=== PATIENT | male | born 1945 | race African-American/Black ===

== ENCOUNTER 2017-05-12 23:27 | Inpatient (IN) | payer MEDICARE, OTHER ==
--- NOTE | 2017-05-12 23:47 | RAD ---
CHEST ONE VIEW: History: Chest pain. Comparison: 04-13-10, 08-19-12 FINDINGS: Cardiac silhouette and pulmonary vasculature are unremarkable. Mediastinum is midline. Lungs remain h yperinflated with scattered areas of interstitial scarring. Calcified granulomata are consistent with healed granulomatous disease. There is no lobar consolidation or evidence of pneumothorax. IMPRESSION: COPD. POS: [facility]
[2017-05-13] MEDS ORDERED: Nitroglycerin 2% Ointment 1 INCH/1 GM Packet ONE (00:41)
[2017-05-13 00:44] LABS: CKMB 2.5 ng/mL (0-6.6)
[2017-05-13 00:47] LABS: #Eosinphils 0.6 thou/uL (0.0-0.7); #Lymphocytes 1.3 thou/uL (1.20-3.40); #Monocytes 0.5 thou/uL (0.11-0.59); #Neutrophils 4.5 thou/uL (1.40-6.50); %Basophils 0.2 % (0.0-1.0); %Eosinophils 8.4 % (0.0-10.0); %Lymphocytes 19.2 % (21.0-51.0); %Monocytes 7.8 % (0.0-10.0); %Neutrophils 64.5 % (42.0-75.0); Hemoglobin 13.7 g/dL (14.0-18.0); Mean Corpuscular HGB CONC 33.7 g/dL (32.0-36.0); Mean Corpuscular Hemoglobin 32.9 pg (27.0-31.0); Mean Corpuscular Volume 97.6 fl (80.0-94.0); Mean Platelet Volume 8.1 fL (7.4-10.4); Platelet Count 150 thou/uL (130-400); RBC Distribution Width 11.6 % (11.5-14.5); Red Blood Cell (RBC) Count 4.17 mill/uL (4.70-6.10)
[2017-05-13 00:54] LABS: ALT (SGPT) 15 U/L (8-55); AST (SGOT) 25 U/L (5-34); Albumin 4.2 g/dL (3.4-4.8); Alkaline Phosphatase 49 U/L (40-150); Anion Gap 16 mmol/L (10-20); BUN (Urea Nitrogen) 25 mg/dL (8.4-25.7); Bilirubin, Total 0.2 mg/dL (0.2-1.2); Calc. Creatinine Clearance 0 mL/min (70-130); Calcium 9.2 mg/dL (7.8-10.44); Carbon Dioxide 25 mmol/L (23-31); Chloride 102 mmol/L (98-107); Estimated GFR-MDRD 35; Glucose 149 mg/dL (83-110); Protein, Total 8.2 g/dL (5.8-8.1); Sodium 139 mmol/L (136-145)
[2017-05-13 03:35] LABS: Troponin I 0.512 ng/mL (< 0.028)
[2017-05-13] MEDS ORDERED: Ondansetron HCl/PF 4 MG/2 ML Vial IVP PRN (04:33)
[2017-05-13] MEDS ORDERED: Ondansetron ODT 4 MG TAB SL PRN (04:33)
[2017-05-13] MEDS ORDERED: Acetaminophen 325 MG TAB PO PRN (04:33)
[2017-05-13] MEDS: Nitroglycerin 2% Ointment 1 INCH/1 GM Packet TOP SCH ×3 (05:04→20:38)
[2017-05-13 06:21] LABS: Critical Call Chem Troponin I 2NO.PNL@; Troponin I 0.701 ng/mL (< 0.028)
[2017-05-13] MEDS ORDERED: Morphine 5 MG/ML SYRINGE SLOW IVP PRN (06:55)
--- NOTE | 2017-05-13 08:55 | HP ---
HISTORY OF PRESENT ILLNESS: This is a 71-year-old black male with coronary artery disease, hypertens ion, hyperlipidemia, HIV, who presents with chest pain. The patient has a history of cardiac stents x3 [place] [address] Page. He was doing relatively well until approximately 2 weeks ago he began developing chest pain off and on. He did see Dr. Page at that time in the office. Last night at proximately 10:00 p.m. he developed severe sharp chest pain, nonradiating with diaphoresis. He then presented to the emergency room. He was given nitroglycerin with resolution of his chest pain. Talbot cydney, this morning he awoke which recurrent chest pain. It is localized, substernal, sharp and nonrad iating, without diaphoresis. Overnight his troponin levels were trending upward. His EKG reveals a right bundle branch block with no acute findings. PAST MEDICAL HISTORY: Asthma, hypertension, hyperlipidemia, HIV, followed by Dr. Hernandez, renal insuff iciency, coronary artery disease, diabetes. PAST SURGICAL HISTORY: Left carotid endarterectomy [place] [address] Roberts, stents x3 by Dr. Page 2006, right hand carpal tunnel syndrome surgery. FAMILY HISTORY: Unremarkable. SOCIAL HISTORY: He does not smoke, does not drink. He does drink coffee 1-2 cups per day. 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 He presently works around the [employer]. He is . He has 3 kids. MEDICATIONS: Plavix 75 mg daily, Tivicay 50 mg daily, vitamin D3 400 2 capsules mg daily, Bystolic 1 0 mg daily, losartan/HCTZ 100/12.5 p.o. q.a.m., albuterol p.r.n., Norvasc 5 mg 1 p.o. daily, Epzicom 600, 300 daily, fish oil 1000 two b.i.d., Flomax 0.4 mg daily, finasteride 5 p.o. daily, pravastatin 20 daily, Advair b.i.d. ALLERGIES: None. REVIEW OF SYSTEMS: As above. PHYSICAL EXAMINATION: VITAL SIGNS: Temperature 97.9, pulse 74, respirations 16, pulse ox 98, blood pressure 138/80. GENERAL: Having some mild substernal chest pain at this time. Nitroglycerin has just been placed. HEENT: Clear. HEART: Regular rate and rhythm. LUNGS: Clear. ABDOMEN: Soft. EXTREMITIES: With no edema. LABORATORY: White count 7.0, H&H 13 and 40. Electrolytes normal. Creatinine 2.23, BUN 25, blood quigley gar 149, troponin 0.03, 0.5, 0.701. EKG; right bundle branch block. ASSESSMENT: 1. Non-ST elevation myocardial infarction, rule out acute myocardial infarction. 2. Chest pain as above. 3. Human immunodeficiency virus. 4. Hypertension. 5. Hyperlipidemia. 6. Diabetes. 7. Chronic kidney disease stage 3. PLAN: 1. N.p.o. 2. Nitroglycerin patch. 3. Consult Dr. Page. May need a cardiac catheterization. 4. Resume home medications.
[2017-05-13] MEDS ORDERED: LAMIVUDINE PO SCH (09:00)
[2017-05-13] MEDS ORDERED: ABACAVIR SULFATE PO SCH (09:00)
[2017-05-13] MEDS ORDERED: [UNRECOGNIZED DRUG - OTHER] PO SCH (09:00)
[2017-05-13] MEDS ORDERED: Non-Formulary Item 1 EACH (Nebivolol Hcl [Bystolic] 10 MG) PO SCH (09:00)
[2017-05-13] MEDS ORDERED: Enoxaparin Sodium 80 MG/0.8 ML SYRINGE SC SCH ×2 (09:00)
[2017-05-13] MEDS ORDERED: Non-Formulary Item 1 EACH (Dolutegravir Sodium [Tivicay] 50 MG) PO SCH (09:00)
[2017-05-13] MEDS ORDERED: Aspirin 325 MG TAB PO SCH (09:00)
[2017-05-13] MEDS ORDERED: Non-Formulary Item 1 EACH (Losartan/Hydrochlorothiazide [Losartan-Hctz 100-12.5 Mg Tab] 1 PO SCH (09:00)
[2017-05-13] MEDS ORDERED: OMEGA ACID ETHYL ESTERS PO SCH (09:00)
[2017-05-13] MEDS: Fish Oil 1,000 MG CAP PO SCH ×2 (10:51→20:39)
[2017-05-13] MEDS: Nebivolol HCl 5 MG TAB PO SCH (10:51)
[2017-05-13] MEDS: Hydrochlorothiazide 25 MG TAB PO SCH (10:52)
[2017-05-13] MEDS: Losartan 25 MG TAB PO SCH (10:52)
[2017-05-13] MEDS: Aspirin 325 MG TAB PO SCH (10:53)
[2017-05-13] MEDS: Finasteride 5 MG TAB PO SCH (10:54)
[2017-05-13] MEDS: Tamsulosin HCl 0.4 MG CAP PO SCH ×2 (10:55→20:38)
[2017-05-13] MEDS: Sodium Chloride 0.9% 1,000 ML IV SCH (13:46)
[2017-05-13 14:48] LABS: Critical Call Chem Troponin I RESULT DECREASING; Troponin I 0.616 ng/mL (< 0.028)
--- NOTE | 2017-05-13 15:43 | CON ---
DATE OF CONSULTATION: 05/13/2017 REASON FOR CARDIOLOGY CONSULTATION: Chest pain and elevated troponin. PRIMARY CARE PHYSICIAN: Dr. Favio العلي PRIMARY LATHE MACHINE OPERATOR: Dr. Eri Page REFERRAL PHYSICIAN: Dr. Favio العلي HISTORY OF PRESENT ILLNESS: Mr. Ramsay is a 71-year-old -[place] male with a significant history of coronary artery disease, status post stent placement in 10/2001, left CEA in 2011, multiple cerebrovascular accident in 2000 and 2007, hypertension, hyperlipidemia, diabetes, and HIV positive. The patient complained of chest pain for about 3 weeks. The patient presented to Dr. Arredondo's office 04/25/2017 complaining of chest pain, pressure-like discomfort to the mid sternal area. The patient was planned to have a cardiac catheterization; however, somehow, somebody cancel his schedule and he has not had another cardiac catheterization scheduled after that. Per the patient, the patient started having more worsening of a pressure-like pain to the mediastinal area and he could not breathe last night. Due to those reasons, the patient decided to present to the emergency department for further evaluation and treatment. During the episodes at home, the patient denied any other symptoms such as dizziness or lightheadedness, numbness in the left upper extremity, diaphoresis or any other cardiac complaints. During the initial Cardiology consult assessment the patient is still complaining of light achiness to the mid sternal area,but no shortness breath or any other cardiac complaints; however, when he walked to the bathroom, he has dyspnea on exertion with mild movement. Patient has a history of chronic kidney disease and he has been seen by Dr. Matson twice in the past. He is supposed to follow up with Dr. Matson within a few months. The patient had a cardiac catheterization with stent placement to the left circumflex artery in 2001, with unsuccessful angioplasty of stent to ostium of obtuse marginal branch and 100% occlusion to RCA with a minimal left to right filling. The patient's last echocardiogram was done in 2001 which shows EF of 60-65% with normal valve structure, mild tricuspid regurgitation, mild pulmonary valve regurgitation, and trace mitral valve regurgitation. He underwent left ICA by Dr. Roberts in 2011. The patient has a stress echo in 2003 which shows no evidence of reversible ischemia with some degree of scar in the inferior and posterior artis of the left ventricle. He was seen by Dr. Matson for renal management and Dr. Hernandez for HIV management. PAST MEDICAL HISTORY: 1. Coronary artery disease. 2. Asthma. 3. Hypertension. 4. Hyperlipidemia. 5. Diabetes type 2. 6. Chronic hip pain. 7. HIV positive 8. History of left CVA in 1999 without any residual and right CVA in 2007 with left-sided weakness. 9. Chronic kidney disease. PAST SURGICAL HISTORY: 1. Stent placement in 2001. 2. Left CA in 2011. 3. Right carpal tunnel surgery. FAMILY HISTORY: The patient's mother due to complications of diabetes , hypertension and CVA. The patient's father has a history of coronary artery disease and program from heavy ETOH abuse. The patient's brother due to lung cancer from chronic smoking. There is significant family history of diabetes and hypertension in his family in his maternal and paternal side. SOCIAL HISTORY: The patient lives by himself, his aunt and his cousin live next door. He has 3 children who are living and well. He denies smoking, ETOH or illicit drug abuse. ALLERGIES: He has no known drug allergies. HOME MEDICATIONS: Plavix 75 mg once a day, Bystolic 10 mg once a day, losartan/ hydrochlorothiazide 100/12.5 mg once a day, pravastatin 40 mg once a day, Flomax 0.4 mg once a day 30 minutes prior to the same meal each day, amlodipine 5 mg once a day, omega 3 fish oil once a day, Tivicay 50 mg once a day, Advair 250/50 mcg 1 puff twice a day, Atripla 600/200/ 300 mg 1 tablet at the bedside with empty stomach, albuterol sulfate 2 puffs q.4-6 hours as needed, Lipitor 40 mg once a day, isosorbide mononitrate 30 mg once a day. REVIEW OF SYSTEMS: The following complete review of systems was negative, unless otherwise mentioned in the HPI or below. CONSTITUTIONAL: Weight loss or gain, sense of well-being, ability to conduct usual activities, exercise tolerance. SKIN: Rash, itching, change in hair growth or loss, nail changes, breast lumps , tenderness, swelling, nipple discharge. EYES: No vision change, double vision, tearing, doubles spots and pain. HEENT: Mild headache, vertigo, lightheadedness, dizziness, nose bleeding, cold , obstruction, discharge, dental difficulty, gingival bleeding, denture, neck stiffness, pain, tenderness, mass in the thyroid or other areas. CARDIOVASCULAR: Palpitations, syncope, nocturnal dyspnea, edema, cyanosis, heart murmur, claudication. RESPIRATORY: Wheezing, stridor, cough. GASTROINTESTINAL: Poor appetite, dysphagia, indigestion, abdominal pain, heartburn, nausea, vomiting, jaundice, constipation, diarrhea, blood in the stool. GENITOURINARY: Urgency, frequency, dysuria, nocturia, hematuria, polyuria, oliguria, unusual color of urine. MUSCULOSKELETAL: Pain, swelling, redness or heat of muscle or joint, limitation of motion, motion, muscular weakness, atrophy, cramps. NEUROLOGIC: Seizure, conversion, paralysis, tremor, incoordination, difficulty with memory or speech. PSYCHIATRIC: Emotional problem, anxiety, depression, previous psychiatric care , unusual perception, hallucination. PHYSICAL EXAMINATION: VITAL SIGNS: Blood pressure 138/80, heart rate 74, respiratory rate 16, O2 sat 98% on 2 liters and temperature 97.9. GENERAL: Well-developed, well-nourished without acute distress. HEAD: Normocephalic, atraumatic. EYES: Extraocular muscle movement intact. ENT: Oral and nasal mucosa is moist without lesion. NECK: No JVD. Neck is supple, normal range of motion. LUNGS: Clear to auscultation bilaterally, no wheezing, rales or rhonchi noted. CARDIOVASCULAR: Regular rate and rhythm, normal S1, S2. There are no S3 or S4. No significant murmur, hives, thrill or bruits noted. There are 2+ pulses in the bilateral dorsal pedis, posterior tibial, and popliteal. Carotid pulses are present on both sides with bruit to the left side, there is no edema in the bilateral lower extremities. ABDOMEN: Soft, nontender or mass to touch, palpate, nondistended. Bowel sounds are present. MUSCULOSKELETAL: Able to move all extremities. Weakness to the left extremities, no calf tenderness. SKIN: Warm and dry. No skin rash, lesion, no bruise noted. NEUROLOGIC: Alert, oriented x4, awake. Normal affect. Nonfocal. PSYCHIATRIC: Mood and affect normal. LABORATORY DATA: WBC 7.0, hemoglobin 13.7, hematocrit 40.7, platelet 150,000. Sodium 139, potassium 4.0. BUN 25, creatinine 2.23, glucose 149, AST 25, ALT 15 , CK-MB 2.5, troponin 0.03, 0.512, 0.701. Chest x-ray showed the patient had COPD, but other than that no acute process. ASSESSMENT AND PLAN: 1. Chest pain with elevated troponin. The patient is supposed to have a cardiac catheterization; however, due to the patient's creatinine level 2.23, we would like to hold the procedure at this moment. The patient is going to start receiving normal saline 30 mL per an hour, but depends on the echo result , we may increase the IV fluid to make the kidney function improve. The patient is on aspirin, beta byron, statin and Lovenox. We are holding YOVANI inhibitor due to the chronic kidney disease and also Lovenox was changed to heparin due to the kidney function. We will check the patient's troponin level one more time. We would like to continue to monitor the patient on the telemetry. 2. Chronic kidney disease. We are holding the YOVANI inhibitor at this moment. We would like to continue to monitor. 3. Hypertension, stable with current medication. 4. Diabetes. 5. Hyperlipidemia. Patient is on the statin. 6. Human immunodeficiency virus positive. The patient is on medication. The patient's condition is stable at this time. 7. Bilateral carotid artery disease. When the patient has cardiac catheterization patient can have his carotid arteries checked during the cardiac catheterization procedure 8. Status post cerebrovascular accident. The patient's condition is stable at this time. We like to continue to monitor. Thank you very much for allowing the Cardiology Service to participate in the care of this patient. We will follow along with the patient care team and make further recommendations as appropriate. ABHINAV
[2017-05-13] MEDS ORDERED: Carvedilol 6.25 MG TAB PO SCH (17:00)
[2017-05-13] MEDS: Morphine 5 MG/ML SYRINGE SLOW IVP PRN (18:17)
[2017-05-13] MEDS: Simvastatin 5 MG TAB PO SCH (20:39)
[2017-05-13] MEDS: Heparin 5,000 UNITS/ML VIAL SC SCH (20:40)
[2017-05-13] MEDS ORDERED: Pravastatin Sodium 20 MG TAB PO SCH (21:00)
--- NOTE | 2017-05-14 04:42 | CON ---
CONSULTATION ADDENDUM Please refer to the note that is already dictated by my nurse practitioner, Lyn. DATE OF CONSULTATION: 05/13/2017 INDICATION FOR CONSULTATION: Chest pain with abnormal cardiac enzymes in a patient with known jolley ry artery disease. He has undergone angioplasty and stent placed in the past. HISTORY OF PRESENT ILLNESS: This very pleasant, elderly gentleman who has a history of known coronar y artery disease who underwent angioplasty and stent placement in 2001. He has also had multiple per ipheral vascular diseases and procedures. He presented recently complaining of chest discomfort in t he office and was advised to undergo a cardiac catheterization; however, I believe he had canceled it , another date he had been scheduled after that and unfortunately the patient has not yet presented f or the cardiac catheterization until he presented to the emergency room complaining of chest discomfo rt. He has been admitted for further evaluation. During this episode apparently, the patient also h ad become somewhat dizzy and lightheaded, complained of some chest discomfort and some tingling type sensations. His cardiac enzymes are slightly abnormal, which could be considered possible non-ST seg ment elevation myocardial infarction or just demand ischemia. He unfortunately has chronic kidney di sease also. At this time, he has had no chest pain, but will need to be evaluated prior to undergoin g further procedures. As noted by the nurse practitioner he will need to undergo IV fluid replacemen ts as well as a Nephrology consultation prior to proceeding. I did explain to this patient that shou ld we proceed with cardiac catheterization at this time, he may end up on dialysis and may have kidne y failure. It is highly possible that the patient had been significant progression of his coronary a rtery disease. His last cardiac catheterization did have significant disease in the left circumflex for which he underwent angioplasty and stent placement, we were unable to completely intervene on par t of his left circumflex system, I believe the obtuse marginal branch were unable to open this vessel and he also had 100% occlusion of the right coronary artery with some left to right collaterals. Hi s left anterior descending artery did not have any significant flow-limiting disease. Ejection fract ion in the past back in 2001 had been within normal limits except he did have some mild regurgitation s. He has had other vascular procedures such as an internal carotid artery endarterectomy by Dr. Escobar by about 6 or 7 years ago. At this time, he remains relatively stable. PAST MEDICAL HISTORY/SOCIAL HISTORY/REVIEW OF SYSTEMS: Please refer the notes dictated by the nurse practitioner. ALLERGIES: None. MEDICATIONS: Please refer to the list of the previous dictation by the nurse practitioner. PHYSICAL EXAMINATION: GENERAL: Reveals an elderly gentleman who is in no acute distress. VITAL SIGNS: Stable. Blood pressure is 130/80, heart rates in the 70s, respiratory rate 16, O2 satu rations 98%. HEENT: Shows the head to be normocephalic, atraumatic. There is a well-healed surgical incision of the carotid area after carotid endarterectomy, bilateral bruits were noted. CHEST: Clear to auscultation. I did not hear any rales, rhonchi or wheezing. CARDIOVASCULAR: Exam reveals a regular rate and rhythm at this time. There were no significant murm urs, heaves, thrills, bruits or rubs. ABDOMEN: Soft and nontender. Positive bowel sounds are present. EXTREMITIES: Show no clubbing or cyanosis. I cannot palpate his pedal pulses very well and femoral pulses were present, but are somewhat diminished. His radial pulses appear to be normal. NEUROLOGIC: The patient appears to be intact without any gross focal motor deficits. SKIN: Warm and dry. IMPRESSION: 1. Known coronary artery disease with unstable angina type symptoms with ST segment changes and also evidence of abnormal cardiac enzymes. The patient would best be served by undergoing a cardiac cath eterization; however, at this time, he is relatively stable and I would advise him to undergo evaluat ion by Nephrology prior to proceeding with cardiac catheterization if at all possible. We will need to hydrate the patient prior to cardiac catheterization to decrease the risk of further renal insult. 2. History of diabetes. This will be dealt with by the primary service. 3. Hypertension. He appears to be relatively stable at this time. 4. History of bilateral carotid artery disease with previous carotid endarterectomy. The patient hensley s also believe had a CVA in the past. 5. History of human immunodeficiency virus positive patient. He will continue his medications at th is time for his HIV. I would be more than happy to continue to follow the patient with you. Hopefully, plan for a cardiac catheterization on this admission. I did explain to him the procedure that would include some possi ble bleeding, infection, myocardial infarction, renal insufficiency or renal failure in his case as w ell as bleeding, infection, CVA or possible myocardial infarction or even . He does understand and we will try to proceed with cardiac catheterization once the patient has had hydration. We will also need to obtain an echocardiogram in order to further hydrate the patient. If he has a decrease in ejection fraction this could cause him to have congestive heart failure especially with his decrea sing renal function.
[2017-05-14 05:28] LABS: #Eosinphils 0.5 thou/uL (0.0-0.7); #Lymphocytes 1.2 thou/uL (1.20-3.40); #Monocytes 0.7 thou/uL (0.11-0.59); #Neutrophils 5.1 thou/uL (1.40-6.50); %Basophils 0.5 % (0.0-1.0); %Eosinophils 6.1 % (0.0-10.0); %Lymphocytes 16.4 % (21.0-51.0); %Monocytes 9.5 % (0.0-10.0); %Neutrophils 67.5 % (42.0-75.0); Hemoglobin 12.3 g/dL (14.0-18.0); Mean Corpuscular HGB CONC 33.7 g/dL (32.0-36.0); Mean Corpuscular Hemoglobin 33.4 pg (27.0-31.0); Mean Corpuscular Volume 99.1 fl (80.0-94.0); Mean Platelet Volume 7.6 fL (7.4-10.4); Platelet Count 137 thou/uL (130-400); RBC Distribution Width 11.6 % (11.5-14.5); Red Blood Cell (RBC) Count 3.68 mill/uL (4.70-6.10); White Blood Cell (WBC) Count 7.6 thou/uL (4.8-10.8)
[2017-05-14 05:36] LABS: Anion Gap 10 mmol/L (10-20); BUN (Urea Nitrogen) 25 mg/dL (8.4-25.7); Calc. Creatinine Clearance 44 mL/min (70-130); Calcium 8.8 mg/dL (7.8-10.44); Carbon Dioxide 28 mmol/L (23-31); Chloride 106 mmol/L (98-107); Estimated GFR-MDRD 49; Glucose 109 mg/dL (83-110); Potassium 4.6 mmol/L (3.5-5.1); Sodium 139 mmol/L (136-145)
--- NOTE | 2017-05-14 07:26 | EKG ---
Test Reason : Blood Pressure : / mmHG Vent. Rate : 071 BPM Atrial Rate : 071 BPM P-R Int : 244 ms QRS Dur : 140 ms QT Int : 396 ms P-R-T Axes : 081 054 007 degrees QTc Int : 430 ms Poor data quality, interpretation may be adversely affected Sinus rhythm with 1st degree A-V block Right bundle branch block Abnormal ECG When compared with ECG of 12-MAY-2017 23:33, (Unconfirmed) AK interval has increased T wave inversion no longer evident in Anterior leads QT has shortened Confirmed by DR. Melany YEH ([id number]) on 05/14/2017 7:26:15 AM Referred By: Nolberto RUSSELL Confirmed By:DR. Melany YEH
--- NOTE | 2017-05-14 07:42 | PRG ---
DATE OF SERVICE: 05/14/2017 SUBJECTIVE: The patient is doing well. No complaints of chest pain, shortness of breath, nausea, or vomiting. OBJECTIVE: VITAL SIGNS: Temperature 97.8, pulse 74, respirations 20, pulse ox 99 on 2 liters O2, blood pressure 117/63. HEART: Regular rate and rhythm. LUNGS: Clear with occasional expiratory wheeze. ABDOMEN: Soft. EXTREMITIES: With no edema. LABORATORY DATA: White count 7.6, H and H 12 and 36, creatinine decreased from 2.23-1.68, blood suga r 109. ASSESSMENT: 1. [id number] elevation myocardial infarction, rule out acute myocardial infarction. 2. Chest pain. 3. Human immunodeficiency virus. 4. Hypertension. 5. Hyperlipidemia. 6. Diabetes, controlled. 7. Chronic kidney disease, stage 3. PLAN: 1. Patient is chest pain free at this time. He is being hydrated slowly. Renal has been consulted. 2. Plan cardiac catheterization once kidney status is improved. 3. Appreciate Dr. Page. 4. Continue home medicines. 5. Out of bed t.i.d.
--- NOTE | 2017-05-14 08:59 | CON ---
DATE OF CONSULTATION: 05/14/2017 REASON FOR CONSULTATION: Elevated creatinine. HISTORY OF PRESENT ILLNESS: This is a 71-year-old gentleman who presented with chest pain and elevat ed troponin. His creatinine was more than 2, which after hydration improved to 1.6 today. The patie nt denies nausea, vomiting, chest pain or syncope. PAST MEDICAL HISTORY: Coronary disease, asthma, hypertension, CKD, HIV, history of CVA, history of s tent placement, history of left CVA in 2011, history of right carpal tunnel surgery. FAMILY HISTORY: Negative for ESRD. SOCIAL HISTORY: No alcohol or drug use. ALLERGIES: Reviewed. HOME MEDICATIONS: Reviewed. REVIEW OF SYSTEMS: Fifteen 12-point review of systems was performed and negative except all noted ab ove. GENERAL: Weakness- HEAD: Headache- NECK: No swelling or lumps. NOSE: No epistaxis or discharge. EYES: No diplopia or pain. RESPIRATORY: Dyspnea- CARDIOVASCULAR: Chest pain- GASTROINTESTINAL: Nausea- /SOCIAL SERVICE TECHNICIAN: Hematuria- MUSCULOSKELETAL: No joint pain. NEUROPSYCHIATIC SYSTEMS: No suicidal ideation. No ideation. SKIN: Denies any rash or ulcer. CONSTITUTIONAL: No fever or chills. PHYSICAL EXAMINATION: GENERAL: Patient is awake, alert. VITAL SIGNS: Afebrile. Pulse 74, breathing 16, blood pressure 117/63. OBJECTIVE: See above. Awake, alert, in no acute distress. GENERAL APPEARANCE AND MENTAL STATUS: Fair. HEAD/NECK: Normocephalic. Atraumatic. EYES: EOMI. No deformity. EARS: Clear. No ulcers. NOSE: Intact. No lesions. MOUTH: Clear. No discharge. THROAT: Clear. No exudate. LUNGS: Clear. No crackles. CARDIAC: S1, S2. No rub. ABDOMEN: Benign. BS+. GENITALIA/RECTUM: Peters absent. BACK/EXTREMITIES: Edema 0+ Ulcer- NEUROLOGICAL: Alert and motor intact. SKIN: Rash- Bruise- LYMPHATICS: Edema- Ulcer- LABORATORY: Creatinine 1.6. ASSESSMENT AND RECOMMENDATIONS: 1. Acute kidney injury with chronic kidney disease, stable. 2. Hypertension, stable. 3. Anemia, stable. No indication for dialysis . I will follow the patient's renal function closely.
[2017-05-14] MEDS: Heparin 5,000 UNITS/ML VIAL SC SCH ×2 (10:02→20:50)
[2017-05-14] MEDS: Fish Oil 1,000 MG CAP PO SCH ×2 (10:03→20:48)
[2017-05-14] MEDS: Finasteride 5 MG TAB PO SCH (10:03)
[2017-05-14] MEDS: Aspirin 325 MG TAB PO SCH (10:03)
[2017-05-14] MEDS: Hydrochlorothiazide 25 MG TAB PO SCH (10:04)
[2017-05-14] MEDS: Tamsulosin HCl 0.4 MG CAP PO SCH ×2 (10:04→20:49)
[2017-05-14] MEDS: Losartan 25 MG TAB PO SCH (10:05)
[2017-05-14] MEDS: Nitroglycerin 2% Ointment 1 INCH/1 GM Packet TOP SCH ×2 (10:23→20:51)
[2017-05-14] MEDS: Nebivolol HCl 5 MG TAB PO SCH ×2 (10:24→20:49)
--- NOTE | 2017-05-14 10:59 | ULT ---
RENAL SONOGRAM: Date: 05-14-17 History: Chronic kidney disease. FINDINGS: The right kidney measures 9.4 x 4.3 cm with the left kidney measures 9.5 x 4.9 cm. There is borderlin e renal cortical thinning involving the right kidney. The kidneys otherwise demonstrate a normal sono graphic appearance bilaterally without evidence of a renal calculus, hydronephrosis, or renal mass. N o perinephric fluid collection is seen. The urinary bladder is incompletely distended with urinary bladder volume of 65 ml. Urinary bladder w all does appear mildly thickened although the urinary bladder is incompletely distended. IMPRESSION: 1. Borderline renal cortical thinning on the right. The kidneys otherwise have a normal sonographic a ppearance without evidence of hydronephrosis. 2. Incomplete distention of the urinary bladder. The urinary bladder wall does appear mildly thickene d. This is overall nonspecific and may be attributable to the incomplete distention, but cystitis can not be excluded on this exam. POS: [facility]
--- NOTE | 2017-05-14 11:07 | PDOC.CTH ---
Cardiology Progress Note - Subjective The pt seen and examined. No overnight events. He still mild PALOMO when he walks to bathroom. - Objective Vital Signs Temp Pulse Resp BP BP Pulse Ox 05/14/17 04:18 97.8 F 74 20 117/63 99 05/14/17 00:00 97.7 F 71 20 110/55 L 100 Weight 170 lb 12.8 oz 05/13/17 05/14/17 05/15/17 06:59 06:59 06:59 Intake Total 1410 Output Total 1910 Balance -500 - Physical Examination General/Neuro: alert & oriented x3 Neck: no JVD present Lungs: CTA Heart: RRR Extremities: other: (No edema) - Telemetry Telemetry Rhythm: SR - Labs Result Diagrams: 05/14/17 04:53 05/14/17 04:53 Troponin/CKMB CK-MB (CK-2) 2.5 ng/mL (0-6.6) 05/12/17 23:55 Troponin I 0.616 ng/mL (< 0.028) H* 05/13/17 14:00 - Assessment/Plan 1. NSTEMI - stable with bbloker, ASA, and Heparin subq; cont. monitor; possible cardiac cath tomorrow 2. SHANKAR on CKD stage 3 - improving; managed by guard range 3. HTN - stable 4. Hyperlipidemia - on statin 5. DM type 2 - managed by PCP 6. Bilat. Carotid disease - possible examine during cardiac cath tomorrow? 7. Hx of CVA x2 with Rt side weakness - stable 8. HIV - stable with current medication MAR reviewed * Plan for Cardiac cath at 0900 on 05/16/17 Review of Systems - Review of Systems Constitutional: reports: no symptoms reported EENTM: reports: no symptoms reported Respiratory: reports: no symptoms reported Cardiac (ROS): reports: see HPI ABD/GI: reports: no symptoms reported : reports: no symptoms reported Musculoskeletal: reports: no symptoms reported
[2017-05-14] MEDS: Morphine 5 MG/ML SYRINGE SLOW IVP PRN (15:22)
[2017-05-14] MEDS: Simvastatin 5 MG TAB PO SCH (20:48)
[2017-05-14] MEDS: Sodium Chloride 0.9% 1,000 ML IV SCH (20:49)
[2017-05-15 06:15] LABS: Anion Gap 12 mmol/L (10-20); BUN (Urea Nitrogen) 26 mg/dL (8.4-25.7); Calc. Creatinine Clearance 49 mL/min (70-130); Calcium 8.8 mg/dL (7.8-10.44); Carbon Dioxide 24 mmol/L (23-31); Chloride 105 mmol/L (98-107); Estimated GFR-MDRD 57; Glucose 116 mg/dL (83-110); Potassium 3.9 mmol/L (3.5-5.1); Sodium 137 mmol/L (136-145)
[2017-05-15] MEDS: Sodium Chloride 0.9% 1,000 ML IV SCH (07:26)
--- NOTE | 2017-05-15 08:19 | PRG ---
DATE OF SERVICE: 05/15/2017 SUBJECTIVE: The patient is doing well. No complaints of chest pain, nausea, vomiting or shortness o f breath. The patient is ambulating in the halls. OBJECTIVE: VITAL SIGNS: Temperature 99.5, pulse 78, respirations 18, pulse ox 99, blood pressure 132/69. HEART: Regular rate and rhythm. LUNGS: Clear to auscultation. ABDOMEN: Soft. EXTREMITIES: No edema. LABORATORY: Sodium 137, potassium 3.9, creatinine 1.47, BUN 26, blood sugar 116. ASSESSMENT: 1. Non-ST elevation myocardial infarction. 2. Chest pain, resolved. 3. Human immunodeficiency virus. 4. Chronic kidney disease stage 3. 5. Hypertension. 6. Hyperlipidemia. 7. Diabetes, controlled. PLAN: 1. Creatinine continues to improve. 2. The patient is scheduled for cardiac catheterization in the a.m. 3. Renal ultrasound was negative. 4. We will continue to follow. 5. Possible discharge after catheterization.
[2017-05-15] MEDS ORDERED: Communication Order-Pharmacy FS SCH (09:00)
--- NOTE | 2017-05-15 09:25 | PDOC.CTH ---
Cardiology Progress Note - Subjective The pt seen and examined. No overnight events. He cont. experiencing ashiness in his chest and PALOMO with walking to bathroom. - Objective Vital Signs Temp Pulse Resp BP Pulse Ox 05/15/17 07:45 97.8 F 73 18 120/63 96 05/15/17 04:41 99.5 F 78 18 132/69 99 Weight 164 lb 9.6 oz 05/14/17 05/15/17 05/16/17 06:59 06:59 06:59 Intake Total 1410 1845 Output Total 1910 1075 Balance -500 770 - Physical Examination General/Neuro: alert & oriented x3 Neck: no JVD present Lungs: CTA Heart: RRR Abdomen: soft Extremities: other: (No edema) - Telemetry Telemetry Rhythm: SR - Labs Result Diagrams: 05/14/17 04:53 05/15/17 05:00 Troponin/CKMB CK-MB (CK-2) 2.5 ng/mL (0-6.6) 05/12/17 23:55 Troponin I 0.616 ng/mL (< 0.028) H* 05/13/17 14:00 - Assessment/Plan 1. NSTEMI - stable with bbloker, ASA, and Heparin subq; cont. monitor; possible cardiac cath tomorrow 2. SHANKAR on CKD stage 3 - cont. improving; Renal u/s negative; managed by electrophysiology tech 3. HTN - stable 4. Hyperlipidemia - on statin 5. DM type 2 - managed by PCP 6. Bilat. Carotid disease - possible examine during cardiac cath tomorrow? 7. Hx of CVA x2 with Rt side weakness - stable 8. HIV - stable with current medication MAR reviewed * Plan for Cardiac cath at 0900 on 05/16/17; The pt voiced he did not have any questions about cardiac cath Review of Systems - Review of Systems Constitutional: reports: no symptoms reported EENTM: reports: no symptoms reported Respiratory: reports: no symptoms reported Cardiac (ROS): reports: see HPI ABD/GI: reports: no symptoms reported : reports: no symptoms reported Musculoskeletal: reports: no symptoms reported
[2017-05-15] MEDS: Heparin 5,000 UNITS/ML VIAL SC SCH ×2 (10:38→21:12)
[2017-05-15] MEDS: Nitroglycerin 2% Ointment 1 INCH/1 GM Packet TOP SCH ×2 (10:38→21:13)
[2017-05-15] MEDS: Aspirin 325 MG TAB PO SCH (10:39)
[2017-05-15] MEDS: Losartan 25 MG TAB PO SCH (10:39)
[2017-05-15] MEDS: Hydrochlorothiazide 25 MG TAB PO SCH (10:39)
[2017-05-15] MEDS: Fish Oil 1,000 MG CAP PO SCH ×2 (10:40→21:12)
[2017-05-15] MEDS: Tamsulosin HCl 0.4 MG CAP PO SCH ×2 (10:41→21:12)
[2017-05-15] MEDS: Finasteride 5 MG TAB PO SCH (10:41)
--- NOTE | 2017-05-15 10:59 | PRG ---
DATE OF SERVICE: 05/15/2017 SUBJECTIVE: This is a 71-year-old gentleman being seen for acute kidney injury. The patient denies any nausea, vomiting, or chest pain. OBJECTIVE: GENERAL: The patient is awake, alert. VITAL SIGNS: Afebrile, pulse 71, breathing 16, blood pressure 120/66. GENERAL APPEARANCE AND MENTAL STATUS: Fair. HEAD/NECK: Normocephalic. Atraumatic. EYES: EOMI. No deformity. EARS: Clear. No ulcers. NOSE: Intact. No lesions. MOUTH: Clear. No discharge. THROAT: Clear. No exudate. LUNGS: Clear. No crackles. CARDIAC: S1, S2. No rub. ABDOMEN: Benign. BS+. GENITALIA/RECTUM: Peters absent. BACK/EXTREMITIES: Edema 0+ Ulcer- NEUROLOGICAL: Alert and motor intact. SKIN: Rash- Bruise- LYMPHATICS: Edema- Ulcer- LABORATORY: Hemoglobin 12.3, creatinine 1.4. ASSESSMENT: 1. Acute kidney injury. 2. Hypertension, stable. 3. Anemia, stable. 4. Uremia, stable. No indication for dialysis. Recommend hydration.
[2017-05-15] MEDS: Morphine 5 MG/ML SYRINGE SLOW IVP PRN (17:05)
[2017-05-15] MEDS: Dolutegravir Sodium [Tivicay] 50 MG PO SCH ×3 (19:00→23:27)
[2017-05-15] MEDS: Nebivolol HCl 5 MG TAB PO SCH (21:12)
[2017-05-15] MEDS: Simvastatin 5 MG TAB PO SCH (21:12)
[2017-05-16] MEDS: Heparin 5,000 UNITS/ML VIAL SC SCH ×2 (06:08→20:26)
[2017-05-16] MEDS: Aspirin 325 MG TAB PO SCH (06:24)
[2017-05-16] MEDS: Fish Oil 1,000 MG CAP PO SCH ×2 (06:26→20:26)
[2017-05-16] MEDS: Tamsulosin HCl 0.4 MG CAP PO SCH ×2 (06:26→20:26)
[2017-05-16] MEDS: Finasteride 5 MG TAB PO SCH (06:27)
[2017-05-16] MEDS: Hydrochlorothiazide 25 MG TAB PO SCH (06:28)
[2017-05-16] MEDS: Losartan 25 MG TAB PO SCH (06:28)
[2017-05-16] MEDS: Nitroglycerin 2% Ointment 1 INCH/1 GM Packet TOP SCH ×2 (06:29→20:26)
[2017-05-16] MEDS: Dolutegravir Sodium [Tivicay] 50 MG PO SCH (06:42)
[2017-05-16] MEDS ORDERED: Iopamidol 370 76% 100 ML VIAL ONE (07:00)
--- NOTE | 2017-05-16 07:47 | PRG ---
DATE OF SERVICE: 05/16/2017 SUBJECTIVE: The patient is doing well. Remains asymptomatic. No complaints of chest pain or shortn ess of breath. OBJECTIVE: VITAL SIGNS: Temperature 98.4, pulse 74, respirations 18, pulse ox 99, blood pressure 130/71. HEART: Regular rate and rhythm. LUNGS: Clear. ABDOMEN: Soft. LABORATORY: BMP pending. ASSESSMENT: 1. Kqa-IE-tmyzrsi elevation myocardial infarction. 2. Chronic kidney disease stage 3. 3. Chest pain, resolved. 4. Human immunodeficiency virus. 5. Hypertension. 6. Hyperlipidemia. 7. Diabetes, controlled. PLAN: 1. Cardiac catheterization this morning. 2. Continue to follow.
[2017-05-16 07:55] LABS: Anion Gap 12 mmol/L (10-20); BUN (Urea Nitrogen) 25 mg/dL (8.4-25.7); Calc. Creatinine Clearance 48 mL/min (70-130); Calcium 8.9 mg/dL (7.8-10.44); Carbon Dioxide 23 mmol/L (23-31); Chloride 106 mmol/L (98-107); Estimated GFR-MDRD 57; Glucose 128 mg/dL (83-110); Potassium 4.1 mmol/L (3.5-5.1); Sodium 137 mmol/L (136-145)
--- NOTE | 2017-05-16 08:25 | PRG ---
DATE OF SERVICE: 05/16/2017 SUBJECTIVE: A 71-year-old gentleman being seen for acute kidney injury. The patient denies any naus ea, vomiting, chest pain. PHYSICAL EXAMINATION: GENERAL: Patient is awake, alert. VITAL SIGNS: Afebrile, pulse 77, breathing at 16, blood pressure 116/71. OBJECTIVE: See above. Awake, alert, in no acute distress. GENERAL APPEARANCE AND MENTAL STATUS: Fair. HEAD/NECK: Normocephalic. Atraumatic. EYES: EOMI. No deformity. EARS: Clear. No ulcers. NOSE: Intact. No lesions. MOUTH: Clear. No discharge. THROAT: Clear. No exudate. LUNGS: Clear. No crackles. CARDIAC: S1, S2. No rub. ABDOMEN: Benign. BS+. GENITALIA/RECTUM: Peters absent. BACK/EXTREMITIES: Edema 0+ Ulcer- NEUROLOGICAL: Alert and motor intact. SKIN: Rash- Bruise- LYMPHATICS: Edema- Ulcer- LABORATORY: Hemoglobin 10.3, creatinine 1.4. ASSESSMENT AND RECOMMENDATIONS: 1. Acute kidney injury, improved.. 2. Hypertension, stable. 3. Anemia, stable. I will sign off on this patient. Please reconsult as needed.
[2017-05-16] MEDS: Sodium Chloride 0.9% 1,000 ML IV SCH ×2 (09:38→22:19)
[2017-05-16] MEDS ORDERED: Lidocaine 1% (PF) 30 ML VIAL ONE (11:47)
[2017-05-16] MEDS ORDERED: Acetaminophen/Codeine 30-300mg Tablet PO PRN ×2 (14:01)
[2017-05-16] MEDS ORDERED: traMADol HCl 50 MG TAB PO PRN (14:01)
[2017-05-16] MEDS ORDERED: Nitroglycerin 0.4 MG TAB (25 Tab Bottle) SL PRN (14:01)
[2017-05-16] MEDS ORDERED: Sodium Chloride 0.9% 200 ML IV SCH (14:01)
--- NOTE | 2017-05-16 19:37 | ULT ---
CAROTID ULTRASOUND WITH OLIVEROS SCALE AND DOPPLER DUPLEX COLOR FLOW IMAGING SPECTRAL ANALYSIS PERFORMED: 05/16/17 CLINICAL INDICATION: Vascular disease. History of carotid endarterectomy. FINDINGS: There is scattered moderate plaque of the carotid arteries. PEAK SYSTOLIC VELOCITY (CM/S): Right CCA 112 Left CCA 113 Right ICA 77 Left ICA 179 There is antegrade flow within the visualized bilateral vertebral arteries. IMPRESSION: Moderate stenosis of the left internal carotid artery on basis of elevated velocity (50-69%). POS: [facility]
[2017-05-16] MEDS: Nebivolol HCl 5 MG TAB PO SCH (20:26)
[2017-05-16] MEDS: Simvastatin 5 MG TAB PO SCH (20:26)
--- NOTE | 2017-05-16 22:00 | CON ---
DATE OF CONSULTATION: 05/16/2017 HISTORY OF PRESENT ILLNESS: This is a 71-year-old gentleman, who presented with chest discomfort ini tially occurring about 2 weeks ago when tilling his garden and then awakening him from sleep later th at evening. He then developed another episode at rest, prompting admission to the hospital a couple of days ago. PAST MEDICAL HISTORY: Circumflex stenting about [address] Page. His risk factors include hypertension and dyslipidemia. SOCIAL HISTORY: He is a nonsmoker, nondrinker. Workup has included cardiac catheterization today sh owing severe diffuse coronary disease. The patient has chronically occluded right with a small, prob ably acute marginal branch filling from left to right collaterals. The LAD and circ both have severe proximal disease. The LAD has several significant lesions throughout its course. There is a small diagonal with a high grade origin lesion. The circumflex consists of a bifurcating OM that has disea se at the origin of both branches and then rather diffusely in the first branch. The main circumflex then extends distally, probably essentially being a left dominant system with three or four small br anches on the bottom of the heart, one of which may be large enough to consider for grafting. PAST MEDICAL HISTORY: The patient's HIV positive under the care of Dr. Hernandez. He has chronic kidney disease with a creatinine of about 1.5-1.8. He has prostatic hypertrophy followed by Urology, hyper tension, and dyslipidemia. PAST SURGICAL HISTORY: Includes a carotid endarterectomy in 2011. 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 He lives alone, does have 3 children, all o f which live locally. Additional surgery includes carpal tunnel on the right. MEDICATIONS PRIOR TO ADMISSION: Included Plavix, Bystolic, losartan/hydrochlorothiazide, Norvasc, Fl omax, finasteride, pravastatin, Advair. He also takes 2 medications for his HIV status including Tiv icay and Epzicom. PHYSICAL EXAMINATION: GENERAL: He is an alert, cooperative gentleman. VITAL SIGNS: Recorded height 5 feet 7 inches, weight 164. NECK: I did not appreciate any carotid bruits. LUNGS: Clear to auscultation. CARDIAC: Regular rate and rhythm. No murmurs. ABDOMEN: Soft, nontender, mildly obese. No aneurysm. No masses. EXTREMITIES: He has palpable femoral pulses and then a weak, but present dorsalis pedis pulses and n o posterior tibial pulses. He has no peripheral edema. The patient was rather diffuse coronary disease and probably some nonbypassable targets, but with sev ere proximal lesions in his LAD, circumflex system and occluded right. Probably could do the LAD, po ssibly the diagonal, possibly the bifurcating OM system, and possibly the left PDA system. Informed consent has been obtained and due to surgery scheduling it may be middle of next week before this cou ld be accomplished.
[2017-05-17 05:43] LABS: Anion Gap 12 mmol/L (10-20); BUN (Urea Nitrogen) 22 mg/dL (8.4-25.7); Calc. Creatinine Clearance 52 mL/min (70-130); Calcium 8.9 mg/dL (7.8-10.44); Carbon Dioxide 24 mmol/L (23-31); Chloride 106 mmol/L (98-107); Estimated GFR-MDRD 61; Glucose 110 mg/dL (83-110); Potassium 4.1 mmol/L (3.5-5.1); Sodium 138 mmol/L (136-145)
[2017-05-17] MEDS: Losartan 25 MG TAB PO SCH (09:11)
[2017-05-17] MEDS: Fish Oil 1,000 MG CAP PO SCH ×2 (09:12→21:15)
[2017-05-17] MEDS: Finasteride 5 MG TAB PO SCH (09:12)
[2017-05-17] MEDS: Tamsulosin HCl 0.4 MG CAP PO SCH ×2 (09:12→21:15)
[2017-05-17] MEDS: Hydrochlorothiazide 25 MG TAB PO SCH (09:12)
[2017-05-17] MEDS: Aspirin 325 MG TAB PO SCH (09:13)
[2017-05-17] MEDS: Nitroglycerin 2% Ointment 1 INCH/1 GM Packet TOP SCH ×2 (09:16→21:15)
[2017-05-17] MEDS: Heparin 5,000 UNITS/ML VIAL SC SCH ×2 (09:17→21:16)
[2017-05-17] MEDS: Dolutegravir Sodium [Tivicay] 50 MG PO SCH (09:46)
[2017-05-17] MEDS: Sodium Chloride 0.9% 1,000 ML IV SCH (09:47)
[2017-05-17] MEDS: Morphine 5 MG/ML SYRINGE SLOW IVP PRN (12:30)
--- NOTE | 2017-05-17 14:30 | EKG ---
Test Reason : Blood Pressure : / mmHG Vent. Rate : 103 BPM Atrial Rate : 103 BPM P-R Int : 194 ms QRS Dur : 140 ms QT Int : 366 ms P-R-T Axes : 062 053 034 degrees QTc Int : 479 ms Sinus tachycardia Right bundle branch block Abnormal ECG Confirmed by OLGA KHAN, SRINIVASAN ([id number]), medical editor DAVI HEARD ([id number]) on 05/17/2017 2:30:41 PM Referred By: Confirmed By:SRINIVASAN ESPINOZA MD
--- NOTE | 2017-05-17 15:16 | PDOC.CTH ---
<Lyn Raines - Last Filed: 05/17/17 15:14> Cardiology Progress Note - Subjective The pt seen and examined. No overnight events. He still experiences of discomfort in his chest with walking and movement. - Objective Vital Signs Temp Pulse Pulse Pulse Resp BP BP 05/17/17 11:11 97.9 F 68 74 18 136/67 150/70 H 05/17/17 08:55 97.9 F 76 16 05/17/17 08:44 97.9 F 76 16 05/17/17 04:00 97.7 F 74 18 BP BP Pulse Ox Pulse Ox Pulse Ox 05/17/17 11:11 99 99 05/17/17 08:55 159/82 H 97 05/17/17 08:44 05/17/17 04:00 134/66 97 Weight 164 lb 8 oz 05/16/17 05/17/17 05/18/17 06:59 06:59 06:59 Intake Total 1833 1675 Output Total 1275 1225 Balance 558 450 - Physical Examination General/Neuro: alert & oriented x3 Neck: no JVD present Lungs: CTA Heart: RRR Abdomen: soft Extremities: other: (No edema) - Telemetry Telemetry Rhythm: SR 80s - Labs Result Diagrams: 05/14/17 04:53 05/17/17 04:47 Troponin/CKMB CK-MB (CK-2) 2.5 ng/mL (0-6.6) 05/12/17 23:55 Troponin I 0.616 ng/mL (< 0.028) H* 05/13/17 14:00 - Assessment/Plan 1. NSTEMI with s/p Cardiac cath with severe 3V CAD - stable with bbloker, ASA, and Heparin subq; cont. monitor; possible CABG next wk by Dr Roberts 2. SHANKAR on CKD stage 3 - cont. improving; Renal u/s negative; cont. monitor 3. HTN - stable 4. Hyperlipidemia - on statin 5. DM type 2 - managed by PCP 6. Bilat. Carotid disease - Carotid doppler study showed mod stenosis in Lt ICA ; cont. monitor 7. Hx of CVA x2 with Rt side weakness - stable 8. HIV - stable with current medication MAR reviewed Review of Systems - Review of Systems Constitutional: reports: no symptoms reported EENTM: reports: no symptoms reported Respiratory: reports: no symptoms reported Cardiac (ROS): reports: see HPI ABD/GI: reports: no symptoms reported : reports: no symptoms reported Musculoskeletal: reports: no symptoms reported Skin: reports: no symptoms reported <Justus Page - Last Filed: 05/17/17 16:08> Cardiology Progress Note - Objective Vital Signs Temp Pulse Pulse Pulse Resp BP BP 05/17/17 11:11 97.9 F 68 74 18 136/67 150/70 H 05/17/17 08:55 97.9 F 76 16 05/17/17 08:44 97.9 F 76 16 BP Pulse Ox Pulse Ox Pulse Ox 05/17/17 11:11 99 99 05/17/17 08:55 159/82 H 97 05/17/17 08:44 Weight 164 lb 8 oz 05/16/17 05/17/17 05/18/17 06:59 06:59 06:59 Intake Total 1833 1675 Output Total 1275 1225 Balance 558 450 - Labs Result Diagrams: 05/14/17 04:53 05/17/17 04:47 Troponin/CKMB CK-MB (CK-2) 2.5 ng/mL (0-6.6) 05/12/17 23:55 Troponin I 0.616 ng/mL (< 0.028) H* 05/13/17 14:00 - Assessment/Plan Pt. seen and eval. by me. I agree with the A/P by the REMNANTS CUTTER. CaBG is planned for next week. Chest clear, RRR.
[2017-05-17] MEDS: Nebivolol HCl 5 MG TAB PO SCH (21:15)
[2017-05-17] MEDS: Simvastatin 5 MG TAB PO SCH (21:15)
[2017-05-18] MEDS: Sodium Chloride 0.9% 1,000 ML IV SCH ×2 (00:44→04:03)
[2017-05-18] MEDS: Aspirin 325 MG TAB PO SCH (09:57)
[2017-05-18] MEDS: Losartan 25 MG TAB PO SCH (09:57)
[2017-05-18] MEDS: Hydrochlorothiazide 25 MG TAB PO SCH (10:01)
[2017-05-18] MEDS: Tamsulosin HCl 0.4 MG CAP PO SCH ×2 (10:02→21:13)
[2017-05-18] MEDS: Nitroglycerin 2% Ointment 1 INCH/1 GM Packet TOP SCH ×2 (10:03→21:13)
[2017-05-18] MEDS: Fish Oil 1,000 MG CAP PO SCH ×2 (10:03→21:12)
[2017-05-18] MEDS: Finasteride 5 MG TAB PO SCH (10:03)
[2017-05-18] MEDS: Heparin 5,000 UNITS/ML VIAL SC SCH ×2 (10:04→21:12)
[2017-05-18] MEDS: Dolutegravir Sodium [Tivicay] 50 MG PO SCH (10:29)
--- NOTE | 2017-05-18 12:28 | PDOC.CTH ---
<Lyn Raines - Last Filed: 05/18/17 12:40> Cardiology Progress Note - Subjective The pt seen and examined. No overnight events. No cardiac complaints. He still experiences of chest discomfort with walking. - Objective Vital Signs Temp Pulse Pulse Pulse Resp BP BP 05/18/17 11:24 89 75 176/83 H 140/74 05/18/17 08:43 97.9 F 70 16 05/18/17 03:38 96.7 F L 77 17 BP Pulse Ox Pulse Ox Pulse Ox 05/18/17 11:24 98 99 05/18/17 08:43 140/72 99 05/18/17 03:38 144/75 H 97 Weight 165 lb 14.4 oz 05/17/17 05/18/17 05/19/17 06:59 06:59 06:59 Intake Total 1675 2581 Output Total 1225 2180 Balance 450 401 - Physical Examination General/Neuro: alert & oriented x3 Neck: no JVD present Lungs: CTA Heart: RRR Abdomen: soft Extremities: other: (No edema) - Telemetry Telemetry Rhythm: SR 70s - Labs Result Diagrams: 05/14/17 04:53 05/17/17 04:47 Troponin/CKMB CK-MB (CK-2) 2.5 ng/mL (0-6.6) 05/12/17 23:55 Troponin I 0.616 ng/mL (< 0.028) H* 05/13/17 14:00 - Assessment/Plan 1. NSTEMI with s/p Cardiac cath with severe 3V CAD - stable with bbloker, ASA, ARE, and Heparin subq; cont. monitor; Plan for CABG on Friday by Dr Roberts 2. SHANKAR on CKD stage 3 - cont. improving; Renal u/s negative; NS was d/samantha today. Cont. monitor 3. HTN - stable 4. Hyperlipidemia - on statin 5. DM type 2 - managed by PCP 6. Bilat. Carotid disease - Carotid doppler study showed mod stenosis in Lt ICA ; cont. monitor 7. Hx of CVA x2 with Rt side weakness - stable 8. HIV - stable with current medication 9. 2 afew sec. 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 Cont. to monitor on tele MAR reviewed * Plan for CABG by Dr Roberts on 05/20/17 Review of Systems - Review of Systems Constitutional: reports: no symptoms reported EENTM: reports: no symptoms reported Respiratory: reports: no symptoms reported Cardiac (ROS): reports: see HPI ABD/GI: reports: no symptoms reported : reports: no symptoms reported Musculoskeletal: reports: no symptoms reported Skin: reports: no symptoms reported <Justus Page - Last Filed: 05/20/17 11:05> Cardiology Progress Note - Objective Vital Signs Temp Pulse Resp BP BP Pulse Ox 05/20/17 08:30 98.0 F 73 18 141/65 H 99 05/20/17 04:00 97.9 F 73 18 140/78 100 05/20/17 00:00 18 Weight 163 lb 3.2 oz 05/19/17 05/20/17 05/21/17 06:59 06:59 06:59 Intake Total 1410 1552 Output Total 2475 1850 Balance -1065 -298 - Labs Result Diagrams: 05/14/17 04:53 05/20/17 04:59 Troponin/CKMB CK-MB (CK-2) 2.5 ng/mL (0-6.6) 05/12/17 23:55 Troponin I 0.616 ng/mL (< 0.028) H* 05/13/17 14:00 - Assessment/Plan Pt. seen and eval. by me. I agree with the A/P by the BOLT SORTER. Chest ckear. RRR. Plan for surgery this week.
[2017-05-18] MEDS: Morphine 5 MG/ML SYRINGE SLOW IVP PRN (14:41)
[2017-05-18] MEDS: Nebivolol HCl 5 MG TAB PO SCH (21:12)
[2017-05-18] MEDS: Simvastatin 5 MG TAB PO SCH (21:12)
[2017-05-19 06:01] LABS: Anion Gap 10 mmol/L (10-20); BUN (Urea Nitrogen) 23 mg/dL (8.4-25.7); Calc. Creatinine Clearance 44 mL/min (70-130); Calcium 8.9 mg/dL (7.8-10.44); Carbon Dioxide 25 mmol/L (23-31); Chloride 105 mmol/L (98-107); Estimated GFR-MDRD 51; Glucose 112 mg/dL (83-110); Sodium 136 mmol/L (136-145)
[2017-05-19] MEDS ORDERED: Sodium Chloride 0.9% 1,000 ML IV SCH (08:00)
--- NOTE | 2017-05-19 08:11 | PRG ---
DATE OF SERVICE: 05/19/2017 SUBJECTIVE: The patient is doing well. He is ambulatory. Still gets occasional slight chest pain w ith increased activity. OBJECTIVE: VITAL SIGNS: Temperature 98.1, pulse 84, respirations 16, pulse ox 97, blood pressure 154/86. HEART: Regular rate and rhythm. LUNGS: Clear. ABDOMEN: Soft. EXTREMITIES: Without edema. LABORATORY: Sodium 136, potassium 4.0. Creatinine is 1.63, glucose is 110 and 112. ASSESSMENT: 1. Non-ST elevation myocardial infarction. 2. Acute kidney injury on chronic kidney disease stage 3: 3. Chest pain, stable. 4. Human immunodeficiency virus. 5. Hypertension. 6. Hyperlipidemia. 7. Diabetes, diet controlled. PLAN: 1. Would consider restarting IV fluids. Creatinine did increase from 1.38 to 1.63. 2. Planning on a coronary artery bypass in the a.m.
[2017-05-19] MEDS: Fish Oil 1,000 MG CAP PO SCH ×2 (08:36→20:29)
[2017-05-19] MEDS: Hydrochlorothiazide 25 MG TAB PO SCH (08:36)
[2017-05-19] MEDS: Losartan 25 MG TAB PO SCH (08:36)
[2017-05-19] MEDS: Finasteride 5 MG TAB PO SCH (08:37)
[2017-05-19] MEDS: Heparin 5,000 UNITS/ML VIAL SC SCH ×2 (08:37→20:33)
[2017-05-19] MEDS: Nitroglycerin 2% Ointment 1 INCH/1 GM Packet TOP SCH ×2 (08:37→20:32)
[2017-05-19] MEDS: Tamsulosin HCl 0.4 MG CAP PO SCH ×2 (08:37→20:32)
[2017-05-19] MEDS: Dolutegravir Sodium [Tivicay] 50 MG PO SCH (08:42)
--- NOTE | 2017-05-19 09:11 | PDOC.CTH ---
<Lyn Raines - Last Filed: 05/19/17 09:23> Cardiology Progress Note - Subjective The pt seen and examined. No overnight events. No cardiac complaints. - Objective Vital Signs Temp Pulse Resp BP Pulse Ox 05/19/17 03:48 98.1 F 84 16 154/86 H 97 05/18/17 21:12 97.9 F 69 16 96 Weight 164 lb 05/18/17 05/19/17 05/20/17 06:59 06:59 06:59 Intake Total 2581 1410 Output Total 2180 2475 Balance 401 -1065 - Physical Examination General/Neuro: alert & oriented x3 Neck: no JVD present Lungs: CTA Heart: RRR Abdomen: soft Extremities: other: (No edema) - Telemetry Telemetry Rhythm: SR 80-90s - Labs Result Diagrams: 05/14/17 04:53 05/19/17 04:53 Troponin/CKMB CK-MB (CK-2) 2.5 ng/mL (0-6.6) 05/12/17 23:55 Troponin I 0.616 ng/mL (< 0.028) H* 05/13/17 14:00 - Assessment/Plan 1. NSTEMI with s/p Cardiac cath with severe 3V CAD - stable with bbloker, ASA, and Heparin subq; cont. monitor; Plan for CABG on Friday by Dr Roberts 2. SHANKAR on CKD stage 3 - worsen today; Renal u/s negative; NS was d/samantha today. Cont. monitor 3. HTN - Stop Losartan and start Norvasc 5mg qd for worsening of Renal function today. 4. Hyperlipidemia - on statin 5. DM type 2 - managed by PCP 6. Bilat. Carotid disease - Carotid doppler study showed mod stenosis in Lt ICA ; cont. monitor 7. Hx of CVA x2 with Rt side weakness - stable 8. HIV - stable with current medication 9. 2 afew sec. 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 Cont. to monitor on may reviewed * Plan for CABG by Dr Roberts on 05/20/17 Review of Systems - Review of Systems Constitutional: reports: no symptoms reported EENTM: reports: no symptoms reported Respiratory: reports: no symptoms reported Cardiac (ROS): reports: no symptoms reported ABD/GI: reports: no symptoms reported : reports: no symptoms reported Musculoskeletal: reports: no symptoms reported <Justus Page - Last Filed: 05/20/17 11:06> Cardiology Progress Note - Objective Vital Signs Temp Pulse Resp BP BP Pulse Ox 05/20/17 08:30 98.0 F 73 18 141/65 H 99 05/20/17 04:00 97.9 F 73 18 140/78 100 05/20/17 00:00 18 Weight 163 lb 3.2 oz 05/19/17 05/20/17 05/21/17 06:59 06:59 06:59 Intake Total 1410 1552 Output Total 2475 1850 Balance -1065 -298 - Labs Result Diagrams: 05/14/17 04:53 05/20/17 04:59 Troponin/CKMB CK-MB (CK-2) 2.5 ng/mL (0-6.6) 05/12/17 23:55 Troponin I 0.616 ng/mL (< 0.028) H* 05/13/17 14:00 - Assessment/Plan Pt. seen and eval. by me. I agree with the A/P by the SEVERITY OF ILLNESS COORDINATOR. Chest ckear. RRR. Plan for surgery this week.
[2017-05-19] MEDS ORDERED: Communication Order-Pharmacy FS ONE (12:29)
[2017-05-19] MEDS: Nebivolol HCl 5 MG TAB PO SCH (20:29)
[2017-05-19] MEDS: Simvastatin 5 MG TAB PO SCH (20:32)
[2017-05-20 05:50] LABS: Anion Gap 8 mmol/L (10-20); BUN (Urea Nitrogen) 22 mg/dL (8.4-25.7); Calc. Creatinine Clearance 44 mL/min (70-130); Calcium 9.2 mg/dL (7.8-10.44); Carbon Dioxide 28 mmol/L (23-31); Chloride 106 mmol/L (98-107); Estimated GFR-MDRD 51; Glucose 108 mg/dL (83-110); Potassium 4.4 mmol/L (3.5-5.1); Sodium 138 mmol/L (136-145)
[2017-05-20] MEDS ORDERED: Acetaminophen/Codeine 30-300mg Tablet PO PRN ×2 (07:29)
[2017-05-20] MEDS ORDERED: Morphine 5 MG/ML SYRINGE SLOW IVP PRN ×2 (07:31)
[2017-05-20] MEDS ORDERED: Nitroglycerin 0.4 MG TAB (25 Tab Bottle) SL PRN (07:32)
[2017-05-20] MEDS ORDERED: traMADol HCl 50 MG TAB PO PRN (07:34)
[2017-05-20] MEDS: Fish Oil 1,000 MG CAP PO SCH ×2 (08:35→20:56)
[2017-05-20] MEDS: Dolutegravir Sodium [Tivicay] 50 MG PO SCH (08:35)
[2017-05-20] MEDS: Nitroglycerin 2% Ointment 1 INCH/1 GM Packet TOP SCH ×2 (08:35→20:57)
[2017-05-20] MEDS: Losartan 25 MG TAB PO SCH (08:37)
[2017-05-20] MEDS: Tamsulosin HCl 0.4 MG CAP PO SCH ×2 (08:37→20:58)
[2017-05-20] MEDS: Hydrochlorothiazide 25 MG TAB PO SCH (08:38)
[2017-05-20] MEDS: Finasteride 5 MG TAB PO SCH (08:38)
--- NOTE | 2017-05-20 08:42 | PRG ---
DATE OF SERVICE: 05/20/2017 SUBJECTIVE: The patient is doing well this morning. No complaints of chest pain, shortness breath, nausea or vomiting. He is awaiting surgery. OBJECTIVE: VITAL SIGNS: Temperature 97.9, pulse 73, respirations 18, pulse ox 100% on room air, blood pressure 140/78. HEART: Regular rate and rhythm. LUNGS: Clear. ABDOMEN: Soft. EXTREMITIES: With no edema. LABORATORY: Sodium 138, potassium 4.4, creatinine 1.63, BUN 22, blood sugar 108. ASSESSMENT: 1. Non-ST elevation myocardial infarction. 2. Acute kidney injury on chronic kidney disease stage 3, kidney status remains stable. Creatinine unchanged from yesterday. 3. Chest pain, resolved. 4. Human immunodeficiency virus. 5. Hypertension. 6. Hyperlipidemia. 7. Diabetes, diet controlled. PLAN: 1. Plan coronary artery bypass grafting in the a.m. by Dr. oRberts. 2. Will Hep-Lock IV at this time.
[2017-05-20] MEDS: Sodium Chloride 0.9% 1,000 ML IV SCH (08:47)
[2017-05-20] MEDS ORDERED: Amlodipine 5 MG TAB PO SCH (09:00)
--- NOTE | 2017-05-20 09:55 | PDOC.CTH ---
<Lyn Raines - Last Filed: 05/20/17 09:49> Cardiology Progress Note - Subjective The pt seen and examined. No overnight events. No cardiac complaints. His procedure will be on 05/21/17. Had 1 episode of 2nd AVB type 1 last night. The pt was asymptomatic during the episode. - Objective Vital Signs Temp Pulse Resp BP Pulse Ox 05/20/17 04:00 97.9 F 73 18 140/78 100 05/20/17 00:00 18 Weight 163 lb 3.2 oz 05/19/17 05/20/17 05/21/17 06:59 06:59 06:59 Intake Total 1410 1552 Output Total 2475 1850 Balance -1065 -298 - Physical Examination General/Neuro: alert & oriented x3 Neck: no JVD present Lungs: CTA Heart: RRR Abdomen: soft Extremities: other: (No edema) - Telemetry Telemetry Rhythm: SR; Hx of 2nd AVB type I - Labs Result Diagrams: 05/14/17 04:53 05/20/17 04:59 Troponin/CKMB CK-MB (CK-2) 2.5 ng/mL (0-6.6) 05/12/17 23:55 Troponin I 0.616 ng/mL (< 0.028) H* 05/13/17 14:00 - Assessment/Plan The pt seen and examined. No overnight events. No cardiac complaints. His procedure will be on 05/21/17. Review of Systems - Review of Systems Constitutional: reports: no symptoms reported EENTM: reports: no symptoms reported Respiratory: reports: no symptoms reported Cardiac (ROS): reports: no symptoms reported ABD/GI: reports: no symptoms reported : reports: no symptoms reported Musculoskeletal: reports: no symptoms reported <Justus Page - Last Filed: 05/20/17 11:06> Cardiology Progress Note - Objective Vital Signs Temp Pulse Resp BP BP Pulse Ox 05/20/17 08:30 98.0 F 73 18 141/65 H 99 05/20/17 04:00 97.9 F 73 18 140/78 100 05/20/17 00:00 18 Weight 163 lb 3.2 oz 05/19/17 05/20/17 05/21/17 06:59 06:59 06:59 Intake Total 1410 1552 Output Total 2475 1850 Balance -1065 -298 - Labs Result Diagrams: 05/14/17 04:53 05/20/17 04:59 Troponin/CKMB CK-MB (CK-2) 2.5 ng/mL (0-6.6) 05/12/17 23:55 Troponin I 0.616 ng/mL (< 0.028) H* 05/13/17 14:00 - Assessment/Plan Pt. seen and eval. by me. I agree with the A/P by the MEDICAL RECEPTIONIST MEDICAL ASSISTANT. Chest ckear. RRR. Plan for surgery this week.
[2017-05-20] MEDS: Nebivolol HCl 5 MG TAB PO SCH (20:57)
[2017-05-20] MEDS ORDERED: Simvastatin 5 MG TAB PO SCH (21:00)
[2017-05-20] MEDS ORDERED: CEFAZOLIN/Water 2 GM/20 ML SYRINGE SLOW IVP SCH (23:30)
[2017-05-21] MEDS ORDERED: CEFAZOLIN/Water 2 GM/20 ML SYRINGE ONE (06:12)
[2017-05-21] MEDS ORDERED: Albumin 5% 500 ML ONE (06:28)
[2017-05-21] MEDS ORDERED: Heparin 10,000 UNITS/1 ML VIAL 30,000 UNITS in Sodium Chloride 0.9% 1,000 ML FS SCH (06:45)
[2017-05-21] MEDS ORDERED: Midazolam HCl 5 mg/5 ml Vial ONE (06:52)
[2017-05-21] MEDS ORDERED: Phenylephrine HCL 10 MG/ML VIAL ONE ×2 (06:52→12:05)
[2017-05-21] MEDS ORDERED: Vecuronium 10 MG VIAL ONE (06:52)
[2017-05-21] MEDS ORDERED: DOBUTamine 500 mg/250 ml 250 ML ONE (06:52)
[2017-05-21] MEDS ORDERED: Nitroglycerin 50 MG/250 ML BOT 250 ML ONE (06:53)
[2017-05-21] MEDS ORDERED: Norepinephrine 8 MG/0.9% NS 250 ML ONE (06:53)
[2017-05-21] MEDS ORDERED: Midazolam HCl 2 mg/2 ml Vial ONE (07:16)
[2017-05-21] MEDS ORDERED: Fentanyl 250 MCG/5 ML VIAL ONE (07:40)
[2017-05-21] MEDS ORDERED: Guaifenesin DM 100-10/5 ML UDCUP PO PRN (12:13)
[2017-05-21] MEDS ORDERED: Phenylephrine 10 MG/NS 250 ML 250 ML IVPB PRN (12:13)
[2017-05-21] MEDS ORDERED: DOPamine 400 MG/D5W 250 ML 250 ML IVPB PRN (12:13)
[2017-05-21] MEDS ORDERED: Mag-Al 1200 mg/1200 mg/30 ML UDCUP PO PRN (12:13)
[2017-05-21] MEDS ORDERED: Fentanyl 100 MCG/2 ML VIAL SLOW IVP PRN (12:13)
[2017-05-21] MEDS ORDERED: Promethazine HCl 25 MG/ML VIAL IM PRN (12:13)
[2017-05-21] MEDS ORDERED: Hetastarch 6% 500 ML 500 ML IVPB PRN (12:13)
[2017-05-21] MEDS ORDERED: Bisacodyl 10 MG SUPP PR PRN (12:13)
[2017-05-21] MEDS ORDERED: Potassium Chloride 20 MEQ/100 ML PREMIX BAG IVPB PRN (12:13)
[2017-05-21] MEDS ORDERED: hydrALAZINE 20 MG/ML VIAL SLOW IVP PRN (12:13)
[2017-05-21] MEDS ORDERED: Post-Op Insulin Drip Protocol IVPB ONE (12:13)
[2017-05-21] MEDS ORDERED: Acetaminophen 325 MG TAB PO PRN (12:13)
[2017-05-21] MEDS ORDERED: Bisacodyl 5 MG TAB PO PRN (12:13)
[2017-05-21] MEDS ORDERED: Nitroglycerin 50 MG/250 ML BOT 250 ML IVPB PRN (12:13)
--- NOTE | 2017-05-21 12:15 | OP ---
DATE OF PROCEDURE: 05/21/2017 PREOPERATIVE DIAGNOSIS: Coronary artery disease. PROCEDURE: Coronary bypass graft x3, left internal mammary artery to an LAD. The mammary had somewh at sluggish flow, but was a nice vessel. The LAD measured 1.5 at the site of anastomosis, saphenous vein was good quality, OM1 was heavily calcified throughout, 1.5 mm and the OM2 was intramyocardial a nd posterior plaque 1.5 mm. SURGEON: Dr. Erik Roberts ORCHESTRA TEACHER: Dr. Crooks PROCEDURE IN DETAIL: After adequate anesthesia had been obtained, the patient was prepped and draped and I did a right greater saphenous vein endovascular vein harvest following which I performed a med harpreet sternotomy. Left internal mammary artery was then harvested, divided distally after heparinizati on. It was passed posterior to the thymus gland. The aorta and right atrium were then cannulated an d cardiopulmonary bypass instituted. After obtaining good cardiopulmonary bypass, vessels were inspe cted for grafting. The distal circumflex was not graftable as expected. Following this, the aorta w as cross-clamped and a liter of cold blood cardioplegia was given following which the three distal an astomoses were completed. Crossclamp was removed, partial occluding clamp placed and 2 proximal anas tomoses were then performed. Following completion of this, distal anastomoses were hemostatic. The patient was then warmed and weaned from cardiopulmonary bypass, cannulas removed, and protamine given systemically. Aortic cannulation site was secured with a 4-0 Prolene suture. Following this, the m ediastinal and bilateral pleural drains were placed, following which the sternum was reapproximated w ith #7 interrupted wire. Vancomycin paste, platelet-enriched blood, and platelet-poor plasma were us ed on the sternal edges. Subcutaneous tissue and skin were closed in layers.
[2017-05-21] MEDS ORDERED: Dextrose 5% in Water 1,000 ML IV PRN (12:21)
[2017-05-21] MEDS ORDERED: Dextrose 50% Abboject 50 ML SYRINGE SLOW IVP PRN (12:21)
[2017-05-21] MEDS: Insulin Regular 300 UNITS/3 ML VIAL SC PRN ×2 (12:57→16:43)
[2017-05-21] MEDS: Sodium Chloride 0.9% 1,000 ML IV SCH ×3 (12:58→22:22)
[2017-05-21 13:04] LABS: #Eosinphils 0.2 thou/uL (0.0-0.7); #Lymphocytes 0.9 thou/uL (1.20-3.40); #Monocytes 0.4 thou/uL (0.11-0.59); #Neutrophils 5.2 thou/uL (1.40-6.50); %Basophils 0.1 % (0.0-1.0); %Lymphocytes 13.5 % (21.0-51.0); %Monocytes 5.2 % (0.0-10.0); %Neutrophils 78.1 % (42.0-75.0); Hemoglobin 10.1 g/dL (14.0-18.0); Mean Corpuscular HGB CONC 33.6 g/dL (32.0-36.0); Mean Corpuscular Hemoglobin 32.7 pg (27.0-31.0); Mean Corpuscular Volume 97.3 fl (80.0-94.0); Platelet Count 108 thou/uL (130-400); RBC Distribution Width 11.3 % (11.5-14.5); White Blood Cell (WBC) Count 6.6 thou/uL (4.8-10.8)
[2017-05-21] MEDS: CEFAZOLIN/Water 2 GM/20 ML SYRINGE SLOW IVP SCH ×2 (13:06→22:22)
[2017-05-21 13:13] LABS: INR-International Normal Ratio 1.4; PTT 35.6 SEC (22.9-36.1); Prothrombin Time 17.9 SEC (12.0-14.7)
[2017-05-21 13:19] LABS: MDiff Complete? YES; PLT Morphology Comment Appears Decreased; Polychromasia SLIGHT = 2-3 cells (100X) (0-2/hpf)
[2017-05-21 13:20] LABS: Base Excess (BEa) -2.7 mEq/L (0 (+/-) 2.5); Hematocrit-ABG 27.4 % (42.0-52.0); Hemoglobin (Hb) 9.9 g/dL (14.0-18.0); O2 Tension (PaO2) 293.9 mmHg (80.0-100.0); pH, Arterial 7.38 (7.35-7.45)
[2017-05-21 13:21] LABS: Puncture Site ALINE
[2017-05-21 13:29] LABS: Anion Gap 8 mmol/L (10-20); BUN (Urea Nitrogen) 16 mg/dL (8.4-25.7); Calc. Creatinine Clearance 59 mL/min (70-130); Carbon Dioxide 24 mmol/L (23-31); Chloride 110 mmol/L (98-107); Estimated GFR-MDRD 72; Glucose 124 mg/dL (83-110); Potassium 4.2 mmol/L (3.5-5.1); Sodium 138 mmol/L (136-145)
--- NOTE | 2017-05-21 14:19 | RAD ---
PORTABLE SUPINE CHEST: HISTORY: Postop open heart surgery. COMPARISON: 05/12/2017 FINDINGS: Heart size is within normal limits. There are postop sternotomy changes. Endotracheal tube is in sa tisfactory position. A right subclavian line is seen with the catheter tip overlying the right atriu m. Chest tubes are in place. IMPRESSION: Postoperative coronary artery bypass grafting changes. POS: [facility]
[2017-05-21] MEDS ORDERED: Esmolol 100 MG/10 ML VIAL ONE (14:30)
[2017-05-21] MEDS ORDERED: Sodium Bicarb 50 MEQ/50 ML VIAL ONE (14:30)
[2017-05-21] MEDS ORDERED: Lidocaine 2% PF 100 mg/5 ml Syringe ONE (14:30)
[2017-05-21] MEDS ORDERED: Magnesium 5 GM/10 ML VIAL ONE (14:30)
[2017-05-21] MEDS ORDERED: Thrombin 5000 UNITS/5 ML VIAL ONE (14:30)
[2017-05-21] MEDS ORDERED: Heparin 5,000 UNITS/ML VIAL ONE (14:30)
[2017-05-21] MEDS ORDERED: PROPOFOL 200 MG/20 ML VIAL ONE (14:30)
[2017-05-21] MEDS ORDERED: Calcium Chloride 1 GM/10 ML Abboject SYRINGE ONE (14:30)
[2017-05-21] MEDS ORDERED: Heparin 30,000 units/30 ml VIAL ONE (14:30)
[2017-05-21] MEDS ORDERED: Aminocaproic Acid 5 GM/20 ML VIAL ONE (14:30)
[2017-05-21] MEDS ORDERED: Papaverine 60 MG/2 ML VIAL ONE (14:30)
[2017-05-21] MEDS ORDERED: Potassium Chloride 60 MEQ/30 ML VIAL ONE (14:30)
[2017-05-21] MEDS ORDERED: Nitroglycerin 50 MG/250 ML BOT ONE (14:30)
[2017-05-21] MEDS ORDERED: Cardioplegic Soln 1,000 ML BAG ONE (14:30)
[2017-05-21] MEDS ORDERED: Lidocaine 1% PF 5 ML VIAL ONE (14:30)
[2017-05-21] MEDS ORDERED: Vecuronium Bromide 20 MG VIAL ONE (14:30)
[2017-05-21] MEDS ORDERED: Protamine Sulfate 250 MG/25 ML VIAL ONE (14:30)
[2017-05-21] MEDS: Fentanyl 100 MCG/2 ML VIAL SLOW IVP PRN ×5 (14:32→23:14)
[2017-05-21] MEDS: Ondansetron HCl/PF 4 MG/2 ML Vial IVP PRN (15:42)
--- NOTE | 2017-05-21 16:49 | PDOC.CTH ---
Cardiology Progress Note - Objective Vital Signs Temp Pulse Resp BP BP Pulse Ox 05/21/17 16:00 97.6 F 15 05/21/17 15:06 73 05/21/17 14:56 73 05/21/17 14:31 69 149/62 H 05/21/17 13:02 12 05/21/17 12:54 97.6 F 05/21/17 12:45 97.6 F 67 12 98 05/21/17 12:32 73 103/60 05/21/17 05:52 62 18 138/72 Weight 163 lb 1.6 oz 05/20/17 05/21/17 05/22/17 06:59 06:59 06:59 Intake Total 1552 1642 Output Total 1850 1700 650 Balance -298 -58 -650 - Physical Examination General/Neuro: other: (awake. still intubated.) Neck: no JVD present Lungs: CTA Heart: RRR Abdomen: soft - Labs Result Diagrams: 05/21/17 12:39 05/21/17 12:39 Troponin/CKMB CK-MB (CK-2) 2.5 ng/mL (0-6.6) 05/12/17 23:55 Troponin I 0.616 ng/mL (< 0.028) H* 05/13/17 14:00 - Assessment/Plan 1. NSTEMI with s/p Cardiac cath with severe 3V CAD - stable with bbloker, ASA, and Heparin subq; cont. monitor; CABG today by Dr Roberts. COLEY-> LAD, SVG-> OM1, OM2. 2. SHANKAR on CKD stage 3 - Renal u/s negative; Cont. monitor 3. HTN - 4. Hyperlipidemia - on statin 5. DM type 2 - managed by PCP 6. Bilat. Carotid disease - Carotid doppler study showed mod stenosis in Lt ICA ; cont. monitor 7. Hx of CVA x2 with Rt side weakness - stable 8. HIV - stable with current medication 9. 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 Cont. to monitor
[2017-05-21 17:51] LABS: Actual Bicarbonate (HCO3a) 18.4 mEq/L (22-26); Base Excess (BEa) -7.4 mEq/L (0 (+/-) 2.5); CO2 Tension 38.3 mmHg (35.0-45.0); O2 Tension (PaO2) 140.2 mmHg (80.0-100.0)
[2017-05-21 17:52] LABS: Calcium, Ionized 1.1 mmol/L (1.12-1.30); Hematocrit-ABG 35.4 % (42.0-52.0); Puncture Site ALINE
[2017-05-21 17:53] LABS: ALV-art Gradient 95.125 (0-20)
[2017-05-21 18:23] LABS: Hemoglobin 11.9 g/dL (14.0-18.0)
[2017-05-21] MEDS ORDERED: Sodium Bicarb 50 MEQ/50 ML Abboject 8.4% SYRINGE IVP SCH (18:30)
[2017-05-21 18:37] LABS: Actual Bicarbonate (HCO3a) 20.7 mEq/L (22-26); Base Excess (BEa) -4.3 mEq/L (0 (+/-) 2.5); CO2 Tension 37.6 mmHg (35.0-45.0); Hematocrit-ABG 34.3 % (42.0-52.0); Hemoglobin (Hb) 11.9 g/dL (14.0-18.0); pH, Arterial 7.36 (7.35-7.45)
[2017-05-21 18:38] LABS: Puncture Site LINE
--- NOTE | 2017-05-21 18:55 | PRG ---
DATE OF SERVICE: 05/21/2017, 6:00 p.m. SUBJECTIVE: The patient is presently intubated. He hopefully will be extubated in the next 20 minut es. He is awake, alert, responding to simple questions. He underwent a successful bypass surgery th is morning. OBJECTIVE: VITAL SIGNS: Blood pressure 142/58, pulse 103, respirations 19. HEART: Regular rate and rhythm. LUNGS: Clear. ABDOMEN: Soft, nontender. EXTREMITIES: With no edema. LABORATORY DATA: White count 6.6, H&H of 10 and 30, potassium 4.2, creatinine 1.21, BUN 16, blood quigley gar 161, 124 and 132. ASSESSMENT: 1. Postop day #0, status post coronary artery bypass grafting x3. 2. Non-ST elevation myocardial infarction. 3. Acute kidney injury on chronic kidney disease stage 3. 4. Human immunodeficiency virus. 5. Hypertension. 6. Hyperlipidemia. 7. Diabetes, diet controlled. PLAN: 1. Routine postoperative care. Hopefully, we will be extubated in the next 20 minutes. 2. Continue to follow electrolytes and sugar. 3. Continue to follow renal functions.
--- NOTE | 2017-05-21 19:30 | CON ---
DATE OF CONSULTATION: 05/21/2017 CRITICAL CARE CONSULT HISTORY OF PRESENT ILLNESS: Mr. Ramsay is a 71-year-old male, who underwent coronary artery bypass gr afting today. He had a COLEY to his LAD. Apparently had from what I can tell a saphenous vein to his OM1 and OM2. He did well postoperatively and was transferred to the Critical Care Unit. I was consulted to assist in his management because of his presence in the ICU. PAST MEDICAL HISTORY: 1. Remarkable for hypertension. 2. Liver disorder. 3. Human immunodeficiency virus positive. 4. History of coronary stenting in 2006. 5. History of asthma. 6. History of renal insufficiency. 7. Diabetes. 8. History of carotid endarterectomy in 2006. 9. History of carpal tunnel release. SOCIAL HISTORY: He is a nonsmoker and nondrinker. FAMILY HISTORY: Negative for lung disease in early age. SOCIAL HISTORY: Apparently is and has 3 children according to old records. MEDICATIONS: Have been reviewed. ALLERGIES: He has no reported drug allergies. REVIEW OF SYSTEMS: Not obtainable since he is intubated. PHYSICAL EXAMINATION: VITAL SIGNS: Afebrile, heart rate 73, blood pressure 149/62. HEENT: Pupils react. Sclerae are anicteric. NECK: Supple. LUNGS: Clear anteriorly. HEART: Regular rhythm. S1 and S2 are normal. ABDOMEN: Soft and nontender. EXTREMITIES: Without clubbing, cyanosis, or edema. NEUROLOGIC: He is still waking up from surgery, so neurological exam could not be assessed. LABORATORY DATA: White count 6.6, hemoglobin 10.1, platelets 108,000. Sodium 138, potassium 4.2, chloride 110, bicarbonate 24, BUN 16, creatinine 1.21. Postop pH 7.38, pC O2 of 38, pO2 of 293. IMPRESSION: 1. Status post coronary artery bypass grafting. 2. Human immunodeficiency virus positive. 3. Diabetes. 4. Hypertension. PLAN: Weaning per protocol. He does not appear to have any signs of active asthma at this point in time. This is a 70-minute consult, greater than 50% of the time was spent coordinating care on the u nit.
[2017-05-21] MEDS: Fish Oil 1,000 MG CAP PO SCH (19:39)
[2017-05-21] MEDS: Finasteride 5 MG TAB PO SCH (19:39)
[2017-05-21] MEDS: Dolutegravir Sodium [Tivicay] 50 MG PO SCH (19:40)
[2017-05-21] MEDS: Nitroglycerin 2% Ointment 1 INCH/1 GM Packet TOP SCH (19:40)
[2017-05-21] MEDS: Hydrochlorothiazide 25 MG TAB PO SCH (19:40)
[2017-05-21] MEDS: Losartan 25 MG TAB PO SCH (19:40)
[2017-05-21] MEDS: Tamsulosin HCl 0.4 MG CAP PO SCH (19:41)
[2017-05-21] MEDS: HYDROcodone/Acetaminophen 5/325 mg Tablet PO PRN (20:03)
[2017-05-21] MEDS ORDERED: Famotidine/PF 20 mg/2ml Vial SLOW IVP SCH (21:00)
[2017-05-22] MEDS: HYDROcodone/Acetaminophen 5/325 mg Tablet PO PRN ×4 (00:09→20:09)
[2017-05-22 04:34] LABS: #Lymphocytes 0.8 thou/uL (1.20-3.40); #Monocytes 1.1 thou/uL (0.11-0.59); %Basophils 0.1 % (0.0-1.0); %Eosinophils 0.1 % (0.0-10.0); %Lymphocytes 7.3 % (21.0-51.0); %Neutrophils 82.6 % (42.0-75.0); Hemoglobin 11.9 g/dL (14.0-18.0); Mean Corpuscular HGB CONC 34.6 g/dL (32.0-36.0); Mean Corpuscular Hemoglobin 33.3 pg (27.0-31.0); Mean Corpuscular Volume 96.2 fl (80.0-94.0); Mean Platelet Volume 6.7 fL (7.4-10.4); Platelet Count 174 thou/uL (130-400); RBC Distribution Width 11.6 % (11.5-14.5); Red Blood Cell (RBC) Count 3.59 mill/uL (4.70-6.10); White Blood Cell (WBC) Count 10.9 thou/uL (4.8-10.8)
[2017-05-22 04:48] LABS: Anion Gap 14 mmol/L (10-20); BUN (Urea Nitrogen) 20 mg/dL (8.4-25.7); Calc. Creatinine Clearance 51 mL/min (70-130); Calcium 7.7 mg/dL (7.8-10.44); Carbon Dioxide 21 mmol/L (23-31); Chloride 111 mmol/L (98-107); Estimated GFR-MDRD 61; Glucose 140 mg/dL (83-110); Potassium 5.1 mmol/L (3.5-5.1); Sodium 141 mmol/L (136-145)
[2017-05-22] MEDS: CEFAZOLIN/Water 2 GM/20 ML SYRINGE SLOW IVP SCH (06:33)
--- NOTE | 2017-05-22 07:42 | PRG ---
DATE OF SERVICE: 05/22/2017 SUBJECTIVE: The patient is doing well postop day #1, status post coronary artery bypass grafting x3 by Dr. Roberts. The morning blood sugar is 70 and therefore, the insulin drip was stopped. The patien t is sitting up in a chair. OBJECTIVE: VITAL SIGNS: Temperature is 98.1, pulse 100, respirations 24, blood pressure 104/70, O2 sat 96%. GENERAL: The patient looks comfortable in the chair. He does have a slight cough. HEART: Regular rate and rhythm. LUNGS: Relatively clear. ABDOMEN: Soft. EXTREMITIES: No edema. LABORATORY DATA: White count 10.9, H&H 11 and 34, potassium 5.1, creatinine 1.39, BUN 20, blood suga r 143, 122, 70. PLAN: 1. Postop day #1, status post coronary bypass grafting x3. 2. Non-ST elevation myocardial infarction. 3. Acute kidney injury on chronic kidney disease stage 3 with a creatinine of 1.39 this morning. 4. Human immunodeficiency virus. 5. Hypertension. 6. Hyperlipidemia. 7. Diabetes, controlled. PLAN: 1. Continue postop care. 2. Continue post-CABG rehab. 3. Continue to monitor electrolytes.
[2017-05-22 08:02] VITALS: BMI 27.3
--- NOTE | 2017-05-22 08:11 | RAD ---
PORTABLE CHEST: Date: 05/22/17 COMPARISON: Prior day's study. HISTORY: Postop open heart surgery. FINDINGS: Heart size appears borderline in size with postop sternotomy change. Endotracheal tube has been remov ed. Right subclavian line and chest tubes remain unchanged in position. IMPRESSION: Stable chest other than removal of the endotracheal tube. POS: OFF
[2017-05-22] MEDS: Tamsulosin HCl 0.4 MG CAP PO SCH ×2 (08:58→20:07)
[2017-05-22] MEDS: Aspirin 325 MG TAB PO SCH (08:58)
[2017-05-22] MEDS: Finasteride 5 MG TAB PO SCH (08:59)
[2017-05-22] MEDS: Ondansetron HCl/PF 4 MG/2 ML Vial IVP PRN (09:03)
--- NOTE | 2017-05-22 10:52 | PRG ---
DATE OF SERVICE: 05/22/2017 Ortiz Ramsay is in no distress. He was sitting up this morning for breakfast. PHYSICAL EXAMINATION: VITAL SIGNS: Heart rate is 95, blood pressure 120/68, respiratory rates in the 20s, oximetry is 97. HEAD AND NECK: Unremarkable. LUNGS: He has rhonchi both lung bases. HEART: Regular rhythm. S1 and S2 are normal. There is a rub as expected after his surgery. Chest radiograph shows no new infiltrates. ABDOMEN: His abdomen is soft and nontender. EXTREMITIES: His feet are warm. LABORATORY: White count 10.9, hemoglobin 11.9, platelets 174. Sodium 141, potassium 5.1, chloride 1 11, bicarbonate 21, BUN 20, creatinine 1.39. IMPRESSION: 1. Status post coronary bypass grafting. 2. Acute on chronic renal dysfunction. 3. Atelectasis and retained secretions. His rhonchi improved with a cough, but he probably would be nefit from some nebulized treatments for a while. 4. Human immunodeficiency virus positive, clinically stable. I have followed him for years with asthma. His asthma has been stable lately, but I think he will be nefit from nebulized ipratropium and albuterol. I will be happy to follow along with the other physi cians caring for him.
[2017-05-22] MEDS: Insulin Regular 300 UNITS/3 ML VIAL SC PRN ×2 (12:02→20:12)
[2017-05-22] MEDS: Sodium Chloride 0.9% 1,000 ML IV SCH ×2 (12:57→14:47)
--- NOTE | 2017-05-22 13:20 | PDOC.CTH ---
<Lyn Raines - Last Filed: 05/22/17 13:18> Cardiology Progress Note - Subjective The pt seen and examined. No overnight events. No cardiac complaints. - Objective Vital Signs Temp Pulse Resp Pulse Ox 05/22/17 10:14 91 22 H 97 05/22/17 08:00 98.4 F 93 15 97 05/22/17 07:00 98.4 F 05/22/17 03:00 98.1 F Admit Weight 166 lb Weight 174 lb 6.17 oz 05/21/17 05/22/17 05/23/17 06:59 06:59 06:59 Intake Total 1642 1331 Output Total 1700 1720 200 Balance -58 -389 -200 - Physical Examination General/Neuro: alert & oriented x3 Neck: no JVD present Lungs: CTA (diminished at bases) Heart: RRR Abdomen: soft Extremities: other: (YOVANI wrap to LLE) - Telemetry Telemetry Rhythm: SR - Labs Result Diagrams: 05/22/17 04:00 05/22/17 04:00 Troponin/CKMB CK-MB (CK-2) 2.5 ng/mL (0-6.6) 05/12/17 23:55 Troponin I 0.616 ng/mL (< 0.028) H* 05/13/17 14:00 - Assessment/Plan 1. NSTEMI with s/p Cardiac cath with severe 3V CAD - CABG x3 wtih COLEY-LAD, SVG- OM1,and SVG-OM2 on 05/21/17; The pt is up to chair without any difficulties. Cont. monitor on tele 2. SHANKAR on CKD stage 3 - slightly worsen today; Renal u/s negative; Cont. monitor 3. HTN - stable; Will resume BBlocker when his VS is more stable 4. Hyperlipidemia - on statin 5. DM type 2 - managed by PCP 6. Bilat. Carotid disease - Carotid doppler study showed mod stenosis in Lt ICA ; cont. monitor 7. Hx of CVA x2 with Rt side weakness - stable 8. HIV - stable with current medication 9. 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 Cont. to monitor MAR reviewed Review of Systems - Review of Systems Constitutional: reports: no symptoms reported EENTM: reports: no symptoms reported Respiratory: reports: no symptoms reported Cardiac (ROS): reports: no symptoms reported ABD/GI: reports: no symptoms reported : reports: no symptoms reported Musculoskeletal: reports: no symptoms reported Skin: reports: no symptoms reported Neurological: reports: no symptoms reported <Justus Page - Last Filed: 05/22/17 21:08> Cardiology Progress Note - Subjective The pt. was seen and eval. by me. I agree with the A/P by the HOUSE CARPENTER. He is stable post CABG. - Objective Vital Signs Temp Pulse Resp Pulse Ox 05/22/17 18:53 110 H 27 H 95 05/22/17 16:00 98.2 F 05/22/17 14:44 94 21 H 97 05/22/17 12:00 98.3 F 05/22/17 10:14 91 22 H 97 Admit Weight 166 lb Weight 174 lb 6.17 oz 05/21/17 05/22/17 05/23/17 06:59 06:59 06:59 Intake Total 1642 1331 1144 Output Total 1700 1720 735 Balance -58 -389 409 - Labs Result Diagrams: 05/22/17 04:00 05/22/17 04:00 Troponin/CKMB CK-MB (CK-2) 2.5 ng/mL (0-6.6) 05/12/17 23:55 Troponin I 0.616 ng/mL (< 0.028) H* 05/13/17 14:00
--- NOTE | 2017-05-22 17:42 | EKG ---
Test Reason : POST CABG Blood Pressure : / mmHG Vent. Rate : 069 BPM Atrial Rate : 069 BPM P-R Int : 212 ms QRS Dur : 142 ms QT Int : 442 ms P-R-T Axes : 074 034 016 degrees QTc Int : 473 ms Sinus rhythm with 1st degree A-V block Right bundle branch block Abnormal ECG When compared with ECG of 13-MAY-2017 06:59, No significant change was found Confirmed by DR. Leana SARMIENTO ([id number]) on 05/22/2017 5:42:41 PM Referred By: ORAL Confirmed By:DR. Leana SARMIENTO
[2017-05-22] MEDS: Pravastatin Sodium 20 MG TAB PO SCH (20:06)
[2017-05-22] MEDS ORDERED: Famotidine 20 MG TAB PO SCH (21:00)
[2017-05-23] MEDS: Insulin Regular 300 UNITS/3 ML VIAL SC PRN ×4 (00:19→18:23)
[2017-05-23 04:57] LABS: #Neutrophils 8.8 thou/uL (1.40-6.50); %Basophils 0.2 % (0.0-1.0); %Eosinophils 0.3 % (0.0-10.0); %Lymphocytes 9.3 % (21.0-51.0); %Monocytes 9.2 % (0.0-10.0); Hemoglobin 11.3 g/dL (14.0-18.0); Mean Corpuscular HGB CONC 34.4 g/dL (32.0-36.0); Mean Corpuscular Hemoglobin 33.3 pg (27.0-31.0); Mean Corpuscular Volume 96.8 fl (80.0-94.0); Mean Platelet Volume 6.7 fL (7.4-10.4); Platelet Count 155 thou/uL (130-400); RBC Distribution Width 11.9 % (11.5-14.5); Red Blood Cell (RBC) Count 3.41 mill/uL (4.70-6.10); White Blood Cell (WBC) Count 10.9 thou/uL (4.8-10.8)
[2017-05-23 04:58] LABS: Anion Gap 10 mmol/L (10-20); BUN (Urea Nitrogen) 19 mg/dL (8.4-25.7); Calc. Creatinine Clearance 52 mL/min (70-130); Carbon Dioxide 24 mmol/L (23-31); Chloride 107 mmol/L (98-107); Estimated GFR-MDRD 57; Glucose 157 mg/dL (83-110); Potassium 4.4 mmol/L (3.5-5.1); Sodium 137 mmol/L (136-145)
[2017-05-23] MEDS: Sodium Chloride 0.9% 1,000 ML IV SCH (05:15)
[2017-05-23] MEDS: HYDROcodone/Acetaminophen 5/325 mg Tablet PO PRN (08:09)
[2017-05-23] MEDS: Tamsulosin HCl 0.4 MG CAP PO SCH ×2 (08:12→21:12)
[2017-05-23] MEDS: Aspirin 325 MG TAB PO SCH (08:12)
[2017-05-23] MEDS: Finasteride 5 MG TAB PO SCH (08:12)
[2017-05-23] MEDS: TIVICAY PO SCH (08:14)
--- NOTE | 2017-05-23 08:43 | PRG ---
DATE OF SERVICE: 05/23/2017 SUBJECTIVE: The patient is doing well, in the process of being transferred to telemetry. No complai nts of any chest pain. Still with slight cough. Ambulating some. OBJECTIVE: VITAL SIGNS: Temperature 98.6, pulse 107, blood pressure 120/69, pulse ox 96, blood pressure 120/69. HEART: Regular rate and rhythm. LUNGS: Clear. ABDOMEN: Soft. EXTREMITIES: With trace edema of the left lower extremity. LABORATORY: Sodium 137, potassium 4.4, creatinine 1.47, BUN 19, blood sugar 157, 157 and 145. Whit e count 10.9, H&H 11 and 33, platelet of 155. ASSESSMENT: 1. Postop day #2 status post coronary artery bypass grafting x3. 2. Dvv-OD-wabblqg elevation myocardial infarction. 3. Acute kidney injury on chronic kidney disease stage 3, stable. Creatinine 1.47. 4. Human immunodeficiency virus. 5. Hypertension. 6. Hyperlipidemia. 7. Diabetes. PLAN: 1. Continue insulin sliding scale. 2. Continue post-CABG rehabilitation. 3. Renal functions remain stable at this time.
[2017-05-23] MEDS ORDERED: TIVICAY PO SCH (09:00)
--- NOTE | 2017-05-23 09:31 | RAD ---
ONE VIEW CHEST: HISTORY: Status post heart surgery. COMPARISON: 05/22/2017 FINDINGS: Stable mediastinal drainage catheters, sternotomy wires, and right-sided central venous catheter. In terval development of bibasilar pleural and parenchymal changes. No pneumothorax. IMPRESSION: Interval development of bibasilar pleural and parenchymal changes. POS: [facility]
[2017-05-23] MEDS ORDERED: Acetaminophen 325 MG TAB PO PRN (13:38)
[2017-05-23] MEDS ORDERED: Aspirin 325 mg Enteric Coated Tablet PO SCH ×2 (13:38→14:00)
[2017-05-23] MEDS ORDERED: Bisacodyl 10 MG SUPP PR PRN (13:38)
[2017-05-23] MEDS ORDERED: Ondansetron HCl/PF 4 MG/2 ML Vial IVP PRN (13:38)
[2017-05-23] MEDS ORDERED: Famotidine 20 MG TAB PO SCH ×2 (13:38→14:00)
[2017-05-23] MEDS ORDERED: Furosemide 40 MG TAB PO SCH ×2 (13:38→14:00)
[2017-05-23] MEDS ORDERED: Nitroglycerin 0.4 MG TAB (25 Tab Bottle) SL PRN (13:38)
[2017-05-23] MEDS ORDERED: Fentanyl 100 MCG/2 ML VIAL SLOW IVP PRN ×2 (13:38)
[2017-05-23] MEDS ORDERED: Mag-Al 1200 mg/1200 mg/30 ML UDCUP PO PRN (13:38)
[2017-05-23] MEDS ORDERED: Guaifenesin DM 100-10/5 ML UDCUP PO PRN (13:38)
[2017-05-23] MEDS ORDERED: Mineral Oil ENEMA PR PRN (13:38)
[2017-05-23] MEDS ORDERED: Bisacodyl 5 MG TAB PO PRN (13:38)
[2017-05-23] MEDS ORDERED: Milk Of Magnesia 30 ML UDCUP PO PRN (13:38)
[2017-05-23] MEDS ORDERED: HYDROcodone/Acetaminophen 5/325 mg Tablet PO PRN ×2 (13:38)
[2017-05-23] MEDS ORDERED: metFORMIN 500 MG TAB PO SCH ×2 (13:38→14:00)
[2017-05-23] MEDS ORDERED: Metoprolol Tartrate 25 MG TAB PO SCH ×2 (13:38→14:00)
[2017-05-23] MEDS ORDERED: Dextrose 50% Abboject 50 ML SYRINGE SLOW IVP PRN (13:59)
[2017-05-23] MEDS ORDERED: Dextrose 5% in Water 1,000 ML IV PRN (13:59)
--- NOTE | 2017-05-23 14:15 | PDOC.CTH ---
<Lyn Raines - Last Filed: 05/23/17 14:13> Cardiology Progress Note - Subjective The pt seen and examined. No overnight events. No cardiac complaints. CT was d/samantha today. - Objective Vital Signs Temp Pulse Resp Pulse Ox 05/23/17 08:00 98.6 F 107 H 29 H 95 05/23/17 06:07 95 05/23/17 06:06 114 H 24 H 05/23/17 04:00 99.7 F H Admit Weight 166 lb Weight 176 lb 9.444 oz 05/22/17 05/23/17 05/24/17 06:59 06:59 06:59 Intake Total 1331 1384 250 Output Total 1720 1500 178 Balance -389 -116 72 - Physical Examination General/Neuro: alert & oriented x3 Neck: no JVD present Lungs: other: (diminished at bases) Heart: RRR Abdomen: soft Extremities: other: (No edemas) - Telemetry Telemetry Rhythm: SR - Labs Result Diagrams: 05/23/17 04:38 05/23/17 04:38 Troponin/CKMB CK-MB (CK-2) 2.5 ng/mL (0-6.6) 05/12/17 23:55 Troponin I 0.616 ng/mL (< 0.028) H* 05/13/17 14:00 - Assessment/Plan 1. NSTEMI with s/p Cardiac cath with severe 3V CAD - CABG x3 wtih COLEY-LAD, SVG- OM1,and SVG-OM2 on 05/21/17; The pt is up to chair without any difficulties. Cont. monitor on tele 2. SHANKAR on CKD stage 3 - slightly worsen today; Renal u/s negative; Cont. monitor 3. HTN - stable; Will resume BBlocker when his VS is more stable 4. Hyperlipidemia - on statin 5. DM type 2 - managed by PCP 6. Bilat. Carotid disease - Carotid doppler study showed mod stenosis in Lt ICA ; cont. monitor 7. Hx of CVA x2 with Rt side weakness - stable 8. HIV - stable with current medication 9. 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 Cont. to monitor MAR reviewed Review of Systems - Review of Systems Constitutional: reports: no symptoms reported EENTM: reports: no symptoms reported Respiratory: reports: no symptoms reported Cardiac (ROS): reports: no symptoms reported ABD/GI: reports: no symptoms reported : reports: no symptoms reported Musculoskeletal: reports: no symptoms reported Skin: reports: no symptoms reported <Justus Page - Last Filed: 05/23/17 22:15> Cardiology Progress Note - Objective Vital Signs Temp Pulse Pulse Pulse Resp BP BP 05/23/17 21:10 98.2 F 117 H 20 05/23/17 19:51 05/23/17 19:49 05/23/17 15:06 98.3 F 99 24 H 05/23/17 14:08 108 H 107 H 157/72 H 143/73 H 05/23/17 10:44 98.3 F 120 H 22 H BP Pulse Ox Pulse Ox Pulse Ox 05/23/17 21:10 161/73 H 94 L 05/23/17 19:51 92 L 05/23/17 19:49 96 05/23/17 15:06 126/68 95 05/23/17 14:08 95 96 05/23/17 10:44 120/69 96 Admit Weight 166 lb Weight 176 lb 9.444 oz 05/22/17 05/23/17 05/24/17 06:59 06:59 06:59 Intake Total 1331 1384 850 Output Total 1720 1500 1078 Balance -389 -116 -228 - Labs Result Diagrams: 05/23/17 04:38 05/23/17 04:38 Troponin/CKMB CK-MB (CK-2) 2.5 ng/mL (0-6.6) 05/12/17 23:55 Troponin I 0.616 ng/mL (< 0.028) H* 05/13/17 14:00 - Assessment/Plan Pt. seen and eval. by me.I agree with the A/P by the BONE WORKER. Overall cardiac status is stable.
--- NOTE | 2017-05-23 16:49 | PRG ---
DATE OF SERVICE: 05/22/2017 SUBJECTIVE: He has no complaints. He says he is feeling better. OBJECTIVE: VITAL SIGNS: He is afebrile. Heart rate is 99, respiratory rate is in the 20s, oximetry is 95 on ro om air, blood pressure 157/72. LUNGS: Completely clear. HEART: Regular rhythm. ABDOMEN: Soft. IMPRESSION: 1. Asthma, clinically stable. 2. Status post coronary bypass grafting. 3. Chest radiograph shows bibasilar atelectasis today. This was reviewed by me. We will continue to increase his activity level. I do not feel that he has pneumonia. His secretion s and his rhonchi have improved dramatically.
[2017-05-23] MEDS: Famotidine 20 MG TAB PO SCH (21:12)
[2017-05-23] MEDS: Pravastatin Sodium 20 MG TAB PO SCH (21:12)
[2017-05-23] MEDS: Metoprolol Tartrate 25 MG TAB PO SCH (21:12)
[2017-05-24] MEDS: Metoprolol Tartrate 25 MG TAB PO SCH (08:05)
[2017-05-24] MEDS: Furosemide 40 MG TAB PO SCH (08:06)
[2017-05-24] MEDS: Aspirin 325 mg Enteric Coated Tablet PO SCH (08:06)
[2017-05-24] MEDS: Finasteride 5 MG TAB PO SCH (08:07)
[2017-05-24] MEDS: Famotidine 20 MG TAB PO SCH ×2 (08:07→21:37)
[2017-05-24] MEDS: metFORMIN 500 MG TAB PO SCH (08:07)
[2017-05-24] MEDS: Tamsulosin HCl 0.4 MG CAP PO SCH ×2 (08:07→21:37)
[2017-05-24] MEDS: TIVICAY PO SCH (08:09)
[2017-05-24] MEDS: Insulin Regular 300 UNITS/3 ML VIAL SC PRN ×4 (08:17→21:38)
[2017-05-24] MEDS ORDERED: Polyethylene Glycol 3350 17 GM Packet PO PRN (10:02)
--- NOTE | 2017-05-24 14:37 | PRG ---
DATE OF SERVICE: 05/24/2017 SUBJECTIVE: Mr. Ramsay doing well. He has no complaints. OBJECTIVE: VITAL SIGNS: Heart rate 76, he is afebrile, respiratory rate 20, oximetry is 95 on room air, blood p ressure 137/65. LUNGS: Clear. HEART: Regular rhythm. S1 and S2 are normal. ABDOMEN: Soft and nontender. There is no new lab today. Blood glucoses are all 157 or less. IMPRESSION: 1. Status post coronary bypass grafting, clinically stable. 2. Human immunodeficiency virus positive, compliant with medication. 3. Asthma, which is stable at this time. PLAN: Continue supportive care per cardiac rehabilitation and nebulizer treatments.
[2017-05-24] MEDS: Pravastatin Sodium 20 MG TAB PO SCH (21:37)
--- NOTE | 2017-05-25 00:08 | PRG ---
DATE OF SERVICE: 05/24/2017 HISTORY OF PRESENT ILLNESS: The patient is postop day 3 of CABG, working with cardiac rehabilitation . Ambulated 20 feet yesterday, a bit further today and a note pending from cardiac rehabilitation. The patient states he gets shortness of breath with activity, but no formal chest pain. Feels sorene ss in chest, but states he has no real pain do discuss. He is tolerating oral intake very well. He is passing positive flatus, little bit constipated, took stool softener yesterday without bowel movem ent, interested in taking laxatives today. Denies any fevers, denies any cough, denies any lower ext remity edema, denies any dysuria. LABORATORY DATA: Review of laboratory reveals white blood cell count of 10.9, hemoglobin of 11.3, pl atelet count of 155. Blood sugars last 16 hours range from 127-145. Renal function remained stable. Creatinine of 1.47, potassium of 4.4. Sodium of 137. Chest x-ray 05/23/2017 without acute cardiop ulmonary event. PHYSICAL EXAMINATION: VITAL SIGNS: Include temperature of 98.2, pulse of 106, respiratory rate of 20, oxygen saturation 95 % on room air, blood pressure 129/70. GENERAL: The patient is alert and oriented, no acute distress. HEENT: Head is normocephalic, atraumatic. Extraocular movements are intact. Sclerae are clear. Or al mucosa is moist. NECK: Supple, suggesting intact over sternum. HEART: Tachycardic, but no murmurs auscultated. LUNGS: Clear to auscultation bilaterally. No rubs or wheezes. ABDOMEN: Soft, nontender, positive bowel sounds throughout. EXTREMITIES: Lower extremities without cyanosis or edema. NEUROLOGIC: The patient is alert and oriented x3, no focal deficits. Speech is normal. ASSESSMENT AND PLAN: Coronary artery disease, status post CABG, postop day #[address] Roberts. The pat ient following through with pulmonary rehabilitation. Pulmonology has followed the patient from disc harge of ICU to floor yesterday. The patient appears to be doing well on the floor. The patient wit h history of diabetes and hypertension, controlled. Blood sugar is also controlled. The patient has p.r.n. nebulize treatments following extubation. He is doing well respiratory ferrer, remain slightly tachycardic. We will continue to follow along with cardiac rehabilitations ambulatory progress. Th e patient unable to walk 200-300 feet, we will seek possible placement/home health with case manageme nt into early next week. We will observe over the weekend. No major changes, adding laxative to pat chaueden's profile, starting with MiraLax. The patient with p.r.n. Fleet enema and glycerin suppository as needed. Acute kidney injuries on chronic, returning somewhat towards baseline, remained stable. We will continue to follow inpatient on periodic basis.
[2017-05-25] MEDS ORDERED: Nebivolol HCl 5 MG TAB PO SCH (09:00)
[2017-05-25] MEDS: Finasteride 5 MG TAB PO SCH (11:00)
[2017-05-25] MEDS: Losartan 25 MG TAB PO SCH (11:00)
[2017-05-25] MEDS: Hydrochlorothiazide 25 MG TAB PO SCH (11:01)
[2017-05-25] MEDS: Tamsulosin HCl 0.4 MG CAP PO SCH ×2 (11:01→21:43)
[2017-05-25] MEDS: Famotidine 20 MG TAB PO SCH ×2 (11:02→21:43)
[2017-05-25] MEDS: TIVICAY PO SCH (11:03)
[2017-05-25] MEDS: Polyethylene Glycol 3350 17 GM Packet PO SCH (11:03)
[2017-05-25] MEDS: metFORMIN 500 MG TAB PO SCH (11:03)
[2017-05-25] MEDS: Furosemide 40 MG TAB PO SCH (11:04)
[2017-05-25] MEDS: Aspirin 325 mg Enteric Coated Tablet PO SCH (11:04)
[2017-05-25] MEDS: Insulin Regular 300 UNITS/3 ML VIAL SC PRN ×2 (11:06→21:46)
--- NOTE | 2017-05-25 17:21 | PRG ---
DATE OF SERVICE: 05/25/2017 SUBJECTIVE: Ortiz Ramsay has no complaints. OBJECTIVE: VITAL SIGNS: He is afebrile, heart rate is 105, blood pressure 149/70, respiratory rate 18 to 20. LUNGS: Completely clear. IMPRESSION: 1. Asthma, clinically stable. 2. Status post coronary artery bypass grafting. 3. Human immunodeficiency virus positive compliant with medication. PLAN: Continue rehabilitation. Postop care, nebulizer treatments.
[2017-05-25] MEDS: Pravastatin Sodium 20 MG TAB PO SCH (21:43)
--- NOTE | 2017-05-26 05:57 | PRG ---
DATE OF SERVICE: 05/25/2017 HISTORY OF PRESENT ILLNESS: The patient states he had a good bowel movement yesterday, improved stam roland with greater than 200 feet with a cardiac rehabilitation. States that Dr. Roberts's team will be h appy with him for possible discharge tomorrow. He has no new complaints. PHYSICAL EXAMINATION: VITAL SIGNS: Review of vital signs, temperature 98.1, pulse of 97, blood pressure of 133/62, oxygen saturation 97% on room air. GENERAL: The patient is alert and oriented, in no acute distress. HEENT: Head is normocephalic and atraumatic. Extraocular movements are intact. Sclerae are clear. Oral mucosa is moist. NECK: Supple. CARDIOVASCULAR: Slightly tachycardic, skipped beats occasionally consistent with PVCs. LUNGS: Clear to auscultation bilaterally. Sternal dressing removed. SKIN: Well healed. ABDOMEN: Soft, nontender, positive bowel sounds throughout. EXTREMITIES: Lower extremities without cyanosis or edema. NEUROLOGIC: The patient is alert and oriented x3, no focal deficits. Speech is normal. LABORATORY DATA: Review of sugars, last 16 hours, range of 117-153. ASSESSMENT AND PLAN: 1. Coronary artery disease, status post coronary artery bypass grafting. Patient is improving as ex pected, likely discharge in the morning. 2. Hypertension and diabetes type 2, continuing current medications. Blood pressure and blood sugar s are controlled. 3. Constipation, improved on MiraLax, as patient has p.r.n.s. available and will continue. Expect d ischarge in the morning.
[2017-05-26] MEDS: metFORMIN 500 MG TAB PO SCH (08:33)
[2017-05-26] MEDS: Finasteride 5 MG TAB PO SCH (08:34)
[2017-05-26] MEDS: Famotidine 20 MG TAB PO SCH (08:34)
[2017-05-26] MEDS: Aspirin 325 mg Enteric Coated Tablet PO SCH (08:34)
[2017-05-26] MEDS: Furosemide 40 MG TAB PO SCH (08:34)
[2017-05-26] MEDS: Hydrochlorothiazide 25 MG TAB PO SCH (08:35)
[2017-05-26] MEDS: Losartan 25 MG TAB PO SCH (08:35)
[2017-05-26] MEDS: Tamsulosin HCl 0.4 MG CAP PO SCH (08:36)
[2017-05-26] MEDS: Polyethylene Glycol 3350 17 GM Packet PO SCH (08:38)
[2017-05-26] MEDS: TIVICAY PO SCH (08:38)
[2017-05-26] MEDS ORDERED: Nebivolol HCl 5 MG TAB PO SCH (09:00)
--- NOTE | 2017-05-26 12:12 | PRG ---
DATE OF SERVICE: 05/26/2017 Ortiz Ramsay has no complaints. PHYSICAL EXAMINATION: VITAL SIGNS: He is afebrile, heart rate is 85, respiratory rate 17, oximetry is 95 on room air, bloo d pressure 131/70. LUNGS: Lungs are completely clear. HEART: Regular rhythm. ABDOMEN: Soft. IMPRESSION: 1. Status post coronary bypass grafting. 2. Human immunodeficiency virus positive compliant with medication. 3. Asthma, clinically stable. PLAN: Follow up in a couple of months after discharge. We will sign off.
[2017-05-26 14:37] VITALS: BP 108/55; TEMP 98.5
--- NOTE | 2017-05-27 13:23 | DIS ---
DATE OF ADMISSION: 05/13/2017 DATE OF DISCHARGE: 05/26/2017 PRIMARY CARE PHYSICIAN: Dr. Favio العلي. PRESENTING HISTORY OF PRESENT ILLNESS: The patient with longstanding history of coronary artery disease with prior stents x3 in 2006. Had intermittent chest pain, reported worsening acutely of chest pain approximately 10:00 p.m., presented to the emergency department for evaluation. Nitroglycerin improved chest pain. During hospital stay, patient found to have NSTEMI, and was evaluated by Cardiology, Dr. Page. Taken to the cardiac home performance laborer and found to have multiple vessel disease. Carotid Doppler was also performed as well as renal ultrasound, moderate stenosis of left carotid artery present. No evidence of hydronephrosis or renal artery stenosis on ultrasound, incomplete bladder emptying. The patient was recommended for CABG, Dr. Erik Roberts was consulted, performed procedure. The patient did well with coronary artery bypass graft x3 vessels. Dr. Morataya was consulted in the ICU in the postoperative period and followed the patient through discharge. Longstanding history of asthma reported, controlled on home medications and breathing treatments upon inpatient. The patient's blood glucoses were controlled throughout hospital stay with minimal medications. The patient was ambulatory with cardiac rehabilitation beyond 200 feet and had good bowel and urine function prior to discharge. No cough, no fevers. DISCHARGE MEDICATIONS: Included tamsulosin 0.4 mg b.i.d., pravastatin 20 mg at bedtime, omega-3 fish oil 2 grams b.i.d., Bystolic 15 mg daily, metformin 500 mg extended release daily, losartan/hydrochlorothiazide 100 mg/12.5 mg daily, isosorbide mononitrate 30 mg daily, Lasix 40 mg 1 tab p.o. daily, finasteride 5 mg 1 tab p.o. daily, Pepcid 20 mg b.i.d., Tivicay 50 mg daily, abacavir 1 tab p.o. daily, aspirin 325 mg daily. The patient discharged home in good condition with outpatient cardiac rehab to follow. The patient should follow up with PCP, Dr. Favio العلي, in the next 7-10 days. Follow up with Cardiovascular Surgery in [address] Page and next month. DISCHARGE DIET: Diabetic and heart healthy. LIST OF DIAGNOSES DURING HOSPITALIZATION: Constipation; hypertension; diabetes , type 2; [id number] myocardial infarction; coronary artery disease, status post 3-vessel coronary artery bypass grafting; human immunodeficiency virus, BPH CONSULTATIONS: Again included Dr. Page, Dr. Morataya, and Dr. Roberts. ABHINAV
[2017-06-04 14:51] LABS: CO2 Tension 41.5 mmHg (35.0-45.0); pH, Arterial 7.35 (7.35-7.45)
[2017-06-04 14:53] LABS: Actual Bicarbonate (HCO3a) 22.3 mEq/L (22-26); Analyzer IN Cardio OR; Base Excess (BEa) -3.1 mEq/L (0 (+/-) 2.5); Calcium, Ionized 1.2 mmol/L (1.12-1.30); Hemoglobin (Hb) 11.3 g/dL (14.0-18.0); O2 Tension (PaO2) 512.9 mmHg (80.0-100.0); Puncture Site ALINE
[2017-06-09 11:50] LABS: Actual Bicarbonate (HCO3v) 24 mEq/L (22-26); Analyzer IN Cardio OR; Base Excess -1.2 mEq/L (0 (+/- 2.5)); Hematocrit-VBG 22.5 % (37-51); Hemoglobin (Hb) 7.8 g/dL (12.6-17.4); Sodium 139.3 mmol/L (133-146); pH (venous) 7.38 (7.35-7.45)
[2017-06-09 11:51] LABS: CO2 Tension 33.6 mmHg (35.0-45.0); pH, Arterial 7.43 (7.35-7.45)
[2017-06-09 11:51] LABS: Calcium, Ionized 1.03 mmol/L (1.16-1.32); Chloride (ABG LAB) 103 mmol/L (98-106); Potassium - ABG Lab 5.1 mmol/L (3.70-5.30)
[2017-06-09 11:52] LABS: Actual Bicarbonate (HCO3a) 21.9 mEq/L (22-26); Analyzer IN Cardio OR; Hematocrit-ABG 21.9 % (42.0-52.0); Hemoglobin (Hb) 7.8 g/dL (14.0-18.0); O2 Tension (PaO2) 426.7 mmHg (80.0-100.0); Puncture Site ALINE
[2017-06-09 11:57] LABS: CO2 Tension 41.9 mmHg (35.0-45.0); O2 Tension (PaO2) 536.7 mmHg (80.0-100.0); pH, Arterial 7.36 (7.35-7.45)
[2017-06-09 11:58] LABS: Actual Bicarbonate (HCO3a) 23.1 mEq/L (22-26); Analyzer IN Cardio OR; Base Excess (BEa) -2.3 mEq/L (0 (+/-) 2.5); Calcium, Ionized 1.2 mmol/L (1.12-1.30); Hematocrit-ABG 36.1 % (42.0-52.0); Hemoglobin (Hb) 12.1 g/dL (14.0-18.0); Puncture Site ALINE
[2017-06-10 10:23] LABS: Actual Bicarbonate (HCO3a) 23.2 mEq/L (22-26); Analyzer IN Cardio OR; CO2 Tension 36.6 mmHg (35.0-45.0); Hematocrit-ABG 23.5 % (42.0-52.0); Hemoglobin (Hb) 8.4 g/dL (14.0-18.0); O2 Tension (PaO2) 442.6 mmHg (80.0-100.0); Puncture Site ALINE; pH, Arterial 7.42 (7.35-7.45)
[2017-06-10 10:24] LABS: CO2 Tension 39.3 mmHg (35.0-45.0); pH, Arterial 7.38 (7.35-7.45)
[2017-06-10 10:25] LABS: O2 Tension (PaO2) 535.8 mmHg (80.0-100.0)
[2017-06-10 10:26] LABS: Actual Bicarbonate (HCO3a) 22.9 mEq/L (22-26); Analyzer IN Cardio OR; Base Excess (BEa) -1.9 mEq/L (0 (+/-) 2.5); Hematocrit-ABG 27.9 % (42.0-52.0); Hemoglobin (Hb) 9.9 g/dL (14.0-18.0); Puncture Site ALINE
== END 2017-05-26 15:57 | disposition home or self-care (01) | DRG 233 ==
LOC: ERS 23:27 → OBSVTOIN 05-13 02:32 → 2SW 05-13 02:32 → 2NO 05-13 03:46 → CCU 05-21 08:01 → 2NO 05-23 12:03
PROVIDERS: ADMIT Family Medicine; ATTEND Family Medicine
PROC: 4A023N7 Measurement of Cardiac Sampling and Pressure, Left Heart, Percutaneous Approach (ICD-10-PCS; 2017-05-16)
PROC: B2111ZZ Fluoroscopy of Multiple Coronary Arteries using Low Osmolar Contrast (ICD-10-PCS; 2017-05-16)
PROC: B2151ZZ Fluoroscopy of Left Heart using Low Osmolar Contrast (ICD-10-PCS; 2017-05-16)
PROC: 021109W Bypass Coronary Artery, Two Arteries from Aorta with Autologous Venous Tissue, Open Approach (ICD-10-PCS; principal; 2017-05-21)
PROC: 02100Z9 Bypass Coronary Artery, One Artery from Left Internal Mammary, Open Approach (ICD-10-PCS; 2017-05-21)
PROC: 03B10ZZ Excision of Left Internal Mammary Artery, Open Approach (ICD-10-PCS; 2017-05-21)
PROC: 5A1221Z Performance of Cardiac Output, Continuous (ICD-10-PCS; 2017-05-21)
DX: I21.4 Non-ST elevation (NSTEMI) myocardial infarction (principal); B20 Human immunodeficiency virus [HIV] disease; N17.9 Acute kidney failure, unspecified; J98.11 Atelectasis; E11.22 Type 2 diabetes mellitus with diabetic chronic kidney disease; I44.1 Atrioventricular block, second degree; I12.9 Hypertensive chronic kidney disease with stage 1 through stage 4 chronic kidney disease, or unspecified chronic kidney disease; N18.3 Chronic kidney disease, stage 3 (moderate); I25.10 Atherosclerotic heart disease of native coronary artery without angina pectoris; J45.909 Unspecified asthma, uncomplicated; K59.00 Constipation, unspecified; N40.0 Benign prostatic hyperplasia without lower urinary tract symptoms; Z86.73 Personal history of transient ischemic attack (TIA), and cerebral infarction without residual deficits; Z79.02 Long term (current) use of antithrombotics/antiplatelets; Z79.899 Other long term (current) drug therapy; Z95.5 Presence of coronary angioplasty implant and graft
CPT/HCPCS: 36415; 36416; 71045; 76770; 80048; 80053; 82553; 82805; 84153; 84484; 85025; 85610; 85730; 86850; 86900; 86901; 93005; 93010; 93306; 93458; 93798; 93880; 94002; 94640; J2270; A4216; C1769; J0360; J1250; J1642; J1644; J1650; J1815; J2001; J2250; J2370; J2405; J2440; J2704; J2720; J3010; J3370; J3475; J3480; J7050; J7620; P9045; S0017; S0028

== ENCOUNTER 2017-06-02 11:57 | Outpatient (CLI) | payer MEDICARE | END 2017-06-02 11:58 | disposition home or self-care (01) | LOC: BICRAD 11:57 | PROVIDERS: ATTEND Family Medicine | DX: I25.10 Atherosclerotic heart disease of native coronary artery without angina pectoris (principal) | CPT/HCPCS: 71046 ==

== ENCOUNTER 2018-09-29 11:53 | Inpatient (IN) | payer MEDICARE ==
[2018-09-29 12:23] LABS: #Eosinphils 0.4 thou/uL (0.0-0.7); #Lymphocytes 1.5 thou/uL (1.20-3.40); #Monocytes 0.5 thou/uL (0.11-0.59); #Neutrophils 5.7 thou/uL (1.40-6.50); %Basophils 0.4 % (0.0-1.0); %Eosinophils 4.5 % (0.0-10.0); %Lymphocytes 18.4 % (21.0-51.0); %Monocytes 6.1 % (0.0-10.0); %Neutrophils 70.6 % (42.0-75.0); Hemoglobin 14.4 g/dL (14.0-18.0); Mean Corpuscular HGB CONC 34.9 g/dL (32.0-36.0); Mean Corpuscular Hemoglobin 33.5 pg (27.0-31.0); Mean Platelet Volume 7.3 fL (7.4-10.4); Platelet Count 213 thou/uL (130-400); RBC Distribution Width 11.5 % (11.5-14.5); Red Blood Cell (RBC) Count 4.32 mill/uL (4.70-6.10)
--- NOTE | 2018-09-29 12:23 | CT ---
CT Brain WO Con HISTORY: Slurred speech COMPARISON: 10/06/2011 exam FINDINGS: There is mild ventricular and sulcal prominence which is fairly age-appropriate. There are no signs of intracerebral hemorrhage or extra-axial fluid collections. The mastoid air cells are clear. There is some mucosal change within the ethmoid air cells. IMPRESSION: 1. No acute intracranial abnormalities. 2. Findings telephoned to Dr. Holman at 1220 hours.
[2018-09-29] MEDS ORDERED: Aspirin 325 MG TAB ONE (12:37)
--- NOTE | 2018-09-29 12:48 | RAD ---
PORTABLE CHEST ONE VIEW: 09/29/2018 12:37 p.m. HISTORY: Altered mental status. COMPARISON: 06/02/2017 FINDINGS: Changes of median sternotomy are again seen. Heart size is normal. Lungs are well expanded without lobar consolidation, pneumothoraces, or pleural effusions. Evidence of old granulomatous disease is again seen. IMPRESSION: No acute process. POS: TPC
[2018-09-29 12:49] LABS: ALT (SGPT) 20 U/L (8-55); AST (SGOT) 21 U/L (5-34); Albumin 4.5 g/dL (3.4-4.8); Alkaline Phosphatase 51 U/L (40-150); Anion Gap 11 mmol/L (10-20); BUN (Urea Nitrogen) 26 mg/dL (8.4-25.7); Bilirubin, Total 0.7 mg/dL (0.2-1.2); CK (CPK) 213 U/L (30-200); Calc. Creatinine Clearance 0 mL/min (70-130); Calcium 10.4 mg/dL (7.8-10.44); Carbon Dioxide 28 mmol/L (23-31); Chloride 102 mmol/L (98-107); Estimated GFR-MDRD 42; Globulin 3.7 g/dL (2.4-3.5); Glucose 151 mg/dL (83-110); Lipase 22 U/L (8-78); Potassium 4.2 mmol/L (3.5-5.1); Protein, Total 8.2 g/dL (5.8-8.1); Sodium 137 mmol/L (136-145)
[2018-09-29 15:33] LABS: Bilirubin Negative (Negative); Blood, Urine Negative (Negative); Clarity Clear (Clear); Glucose, Urine (Dipstick) Normal (Negative); Leukocyte Negative Leu/uL (Negative); Nitrite Negative (Negative); Protein, Urine (Dipstick) Negative (Neg-Trace); Urobilinogen Normal mg/dL (Less than 2)
[2018-09-29 15:49] LABS: Amphetamine Not Detected (NotDetected); Barbiturates Screen Not Detected (NotDetected); Benzodiazepine Screen Not Detected (NotDetected); Cocaine Metabolite Screen Not Detected (NotDetected); Medtox Control Line Valid? VALID (VALID); Medtox Reader # READER 4; Methadone Not Detected (NotDetected); Methamphetamine Not Detected (NotDetected); Opiate Screen Not Detected (NotDetected); Oxycodone Screen Not Detected (NotDetected); Phencyclidine (PCP) Not Detected (NotDetected); THC/Cannabinoid Screen Not Detected (NotDetected); Tricyclic Screen Not Detected (NotDetected)
[2018-09-29] MEDS ORDERED: Ondansetron ODT 4 MG TAB SL PRN (17:08)
[2018-09-29] MEDS ORDERED: Ondansetron PF 4 MG/2 ML Vial IVP PRN (17:08)
[2018-09-29 17:12] VITALS: BMI 24.5
[2018-09-29] MEDS ORDERED: Pravastatin Sodium 20 MG TAB PO SCH (22:15)
[2018-09-29] MEDS ORDERED: Nebivolol HCl 5 MG TAB PO SCH (22:15)
[2018-09-30 05:38] LABS: Cardiac Risk 6.4 (Less than 4.5)
[2018-09-30] MEDS ORDERED: Acetaminophen 500 MG TAB PO PRN (06:02)
[2018-09-30] MEDS ORDERED: HumaLOG 300 UNITS/3 ML VIAL SC PRN ×2 (06:02)
[2018-09-30] MEDS ORDERED: Dextrose 50% Abboject 50 ML SYRINGE SLOW IVP PRN (06:02)
[2018-09-30] MEDS ORDERED: Ondansetron PF 4 MG/2 ML Vial IVP PRN (06:02)
[2018-09-30] MEDS ORDERED: Dextrose 5% in Water 1,000 ML IV PRN (06:02)
[2018-09-30] MEDS ORDERED: Ondansetron ODT 4 MG TAB PO PRN (06:02)
[2018-09-30] MEDS ORDERED: hydrALAZINE 20 MG/ML VIAL SLOW IVP PRN (06:02)
--- NOTE | 2018-09-30 07:35 | HP ---
PRIMARY CARE PROVIDER: Raghu West MD CHIEF COMPLAINT: Slurred speech. HISTORY OF PRESENT ILLNESS: This is a 72-year-old male who presents to [facility] Emergency Department complaining of sudden onset of slurred speech and right upper extremity weakness which began on 09/29/2018. 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 The patient states he has been compliant with his anti-platelet regimen including aspirin 325 mg and Plavix 75 mg daily. The patient denied any facial droop, but states his speech was slurred, prompting his caregiver to notify EMS personnel. The patient denied any specific fever, chills, head trauma, hematemesis, or blood in the stool. In the emergency room, the patient underwent general evaluation including CT imaging of the brain showing no acute intracranial process. The patient received aspirin 324 mg and 1 L of normal saline. PAST MEDICAL HISTORY: 1. CVA with residual left hemiparesis in 2007. 2. Coronary artery disease. 3. Hypertension. 4. Hyperlipidemia. 5. Human immunodeficiency virus with chronic anti-retroviral therapy. 6. Asthma. 7. Chronic kidney disease stage 3. 8. Diabetes mellitus type 2. PAST SURGICAL HISTORY: 1. Status post left carotid endarterectomy in 2006. 2. Status post cardiac stent placement x3. 3. Status post coronary artery bypass grafting x3 vessels in 2018. 4. Status post right carpal tunnel release. CURRENT MEDICATIONS: 1. Abacavir/Lamivudine 600mg/300 mg 1 tablet p.o. daily. 2. Aspirin enteric-coated 325 mg p.o. daily. 3. Plavix 75 mg p.o. daily. 4. Tivicay 50 mg p.o. daily. 5. Losartan/hydrochlorothiazide 100/12.5 mg 1 tablet p.o. daily. 6. Bystolic 15 mg p.o. at bedtime. 7. Hinckley-3 fatty acids 2 g p.o. b.i.d. 8. Pravachol 20 mg p.o. at bedtime. 9. Flomax 0.4 mg p.o. b.i.d. 10. Metformin 500 mg p.o. q.a.m. ALLERGIES: NO KNOWN DRUG ALLERGIES. FAMILY HISTORY: Positive for hypertension and coronary artery disease. SOCIAL HISTORY: No current alcohol, tobacco, or illicit drug use. . Resides in [place], [place]. Ambulates with the use of a cane. REVIEW OF SYSTEMS: CONSTITUTIONAL: Negative for weight loss or gain, ability to conduct usual activities. SKIN: Negative for rash, itching. EYES: Negative for double vision, pain. ENT/MOUTH: Negative for nose bleeding, neck stiffness, pain, tenderness. CARDIOVASCULAR: Negative for palpitations, dyspnea on exertion, orthopnea. RESPIRATORY: Negative for shortness of breath, wheezing, cough, hemoptysis, fever or night sweats. GASTROINTESTINAL: Negative for poor appetite, abdominal pain, heartburn, nausea, vomiting, constipation, or diarrhea. GENITOURINARY: Negative for urgency, frequency, dysuria, nocturia. MUSCULOSKELETAL: Negative for pain, swelling. NEUROLOGIC/PSYCHIATRIC: Negative for anxiety, depression. ALLERGY/IMMUNOLOGIC: Negative for skin rash, bleeding tendency. Otherwise, negative except as stated per HPI. PHYSICAL EXAMINATION: VITAL SIGNS: On admission; blood pressure 135/78, pulse 86, respiratory rate 20, temperature 97.6 degrees Fahrenheit, O2 saturation 100% on room air. GENERAL APPEARANCE: This is a 72-year-old male, alert and oriented x3, pleasant, conversant, in no acute distress. HEENT: Pupils are equal, round, and reactive to light and accommodation. Extraocular muscles are intact. No scleral icterus. No conjunctival injection. Nares patent. OP is clear. NECK: Supple. No cervical adenopathy. No thyromegaly. No carotid bruits. No JVD appreciated. Cervical spine with full active and passive range of motion. No meningeal signs noted. CHEST: Lungs are clear to auscultation bilaterally. CARDIOVASCULAR: S1 and S2 without noted murmur, rub, or gallop. ABDOMEN: Rounded, soft, nontender, and nondistended. Bowel sounds are positive in all 4 quadrants. There is no hepatosplenomegaly. No abdominal bruits. No rebound or guarding appreciated. EXTREMITIES: Warm and dry with fair turgor. No clubbing, cyanosis, or asymmetric edema appreciated. Pulses are palpable distally at the dorsalis pedis, posterior tibial, and popliteal arteries bilaterally. Capillary refill less than 2 seconds. NEUROLOGIC: Left upper extremity with contractures of the left hand. Left upper and left lower extremity, 3/5 strength. Right upper extremity 2 to 3/5. The patient not observed ambulatory during this exam. Positive dysarthria. PERTINENT LAB AND X-RAY FINDINGS: Sodium 137, potassium 4.2, chloride 102, CO2 of 28, BUN 26, creatinine 1.92, estimated GFR 42, calcium 10.4. LFTs within normal limits. BNP 12.7. Albumin 4.5. Total cholesterol 186, triglycerides 227, HDL 29, LDL 112. Lipase 22. CBC showed white blood cell count of 8.0, hemoglobin 14.4, hematocrit 42, platelet count 213 with normal differential. Urinalysis negative. Urine drug screen dated 09/29/2018, negative. Portable chest x-ray dated 09/29/2018, showed no acute cardiopulmonary process. CT of the brain without contrast dated 09/29/2018, showed no acute intracranial process. EKG dated 09/29/2018, by my interpretation, shows sinus tachycardia with heart rates in the low 100s, normal R-wave progression noted in the precordial leads, right bundle branch block pattern noted, normal axis. ASSESSMENT AND PLAN: 1. Acute ischemic cerebrovascular accident. The patient will be observed on the stroke unit. We will continue dual antiplatelet therapy with aspirin 325 mg daily with additional Plavix 75 mg daily. Check 2D transthoracic echocardiogram and carotid Doppler study. Consult Neurology Service and continue general stroke protocol. Continue Lipitor 40 mg at bedtime. 2. Expressive dysphasia, secondary to #1. See #1 above. Speech Therapy evaluation pending. 3. Right hemiparesis, secondary to #1. Continue general stroke protocol as outlined previously. 4. Hypertension. Confirm home blood pressure regimen and monitor clinical response. 5. Diabetes mellitus type 2. Continue metformin 500 mg p.o. daily. Insulin sliding scale for reflexive coverage. ADA diet. 6. Hyperlipidemia. Continue Lipitor 40 mg p.o. at bedtime. 7. Prophylaxis. Sequential compression devices while in bed. Pepcid 20 mg p.o. b.i.d. CODE STATUS: Full. Surrogate medical decision maker is Robinson Ramsay. Job ID: [id number]
--- NOTE | 2018-09-30 07:58 | ULT ---
BILATERAL CAROTID DUPLEX ULTRASOUND: HISTORY: TIA. CVA. TECHNIQUE: Mcmillan-scale ultrasound with color-flow and spectral Doppler imaging of the extracranial carotid artery systems was performed bilaterally. FINDINGS: There is plaque formation on both sides. The peak systolic velocity in the right ICA measures 76 cm per second with an end-diastolic velocity of 22 cm per second and a systolic ratio of 0.80. The peak systolic velocity in the left ICA measures 147 cm per second with an end-diastolic velocity of 34 cm per second and a systolic ratio of 1.68. Flow in both vertebral arteries remains antegrade. IMPRESSION: Moderate (50%-69%) stenosis involving the left internal carotid artery. POS: VANNESSA
--- NOTE | 2018-09-30 08:11 | MRI ---
MRI Brain WO Con: 09/30/2018 7:00 AM CLINICAL HISTORY: Right-sided weakness. TECHNIQUE: Multiplanar, multisequence images were obtained of the brain. COMPARISON: CT the brain dated 09/29/2018 and prior MR the brain dated 01/01/2008 FINDINGS: Extra axial spaces: There is mild generalized cerebral and cerebellar atrophy. Hemorrhage: None. Ventricular system: Normal in size and morphology for the patient's age. Basal cisterns: Normal. Cerebral parenchyma: There is a subacute lacunar infarct involving the left paramedian nicky. There is mild chronic small vessel white matter ischemic change. There is a remote lacunar infarct involving the right paramedian nicky. There is a remote left thalamic lacunar infarct.. Midline shift: None. Cerebellum: Normal. Brainstem: Normal. OTHER: Calvarium: Normal. Vascular system: Normal. Visualized Paranasal sinuses: There is mild mucosal thickening within the sphenoid sinuses, right max illary sinus and ethmoid air cells. Visualized Orbits: Normal. Visualized upper cervical spine: Normal. Sella and skull base: Normal. IMPRESSION: 1. Subacute left paramedian nicky lacunar infarct. 2. Remote right paramedian nicky lacunar infarct, remote left thalamic lacunar infarct and mild chroni c small vessel white matter ischemic change
[2018-09-30] MEDS: metFORMIN 500 MG TAB PO SCH (08:18)
[2018-09-30] MEDS: Clopidogrel Bisulfate 75 MG TAB PO SCH (08:18)
[2018-09-30] MEDS: Aspirin 325 mg Enteric Coated Tablet PO SCH (08:18)
[2018-09-30] MEDS: Tamsulosin HCl 0.4 MG CAP PO SCH ×2 (08:19→21:13)
[2018-09-30] MEDS: Famotidine 20 MG TAB PO SCH (08:19)
[2018-09-30] MEDS: Fish Oil 1,000 MG CAP PO SCH ×2 (08:19→21:13)
[2018-09-30] MEDS ORDERED: Dolutegravir Sodium [Tivicay] 50 MG PO SCH (09:00)
[2018-09-30] MEDS ORDERED: ABACAVIR LAMIVUDINE PO SCH (09:00)
[2018-09-30] MEDS ORDERED: Aspirin 325 mg Enteric Coated Tablet PO SCH (09:00)
[2018-09-30] MEDS ORDERED: Aspirin 325 MG TAB PO SCH (09:00)
--- NOTE | 2018-09-30 09:43 | PDOC.PN ---
- Subjective Encounter Start Date: 09/30/18 Encounter Start Time: 09:30 Subjective: Patient examined, denies new c/o, reports still feeling "weak" -: Informed of MRI results, desires screening for Rehab - Objective Resuscitation Status - Order Detail: 09/30/18 05:54 Resuscitation Status Routine Resuscitation Status: FULL: Full Resuscitation Vital Signs & Weight: Vital Signs (12 hours) Temp Pulse Pulse Pulse Resp BP BP 09/30/18 08:40 91 76 135/72 134/70 09/30/18 08:15 98.3 F 68 20 09/30/18 03:16 97.6 F 86 20 09/29/18 23:19 97.9 F 92 20 BP Pulse Ox 09/30/18 08:40 09/30/18 08:15 135/76 98 09/30/18 03:16 135/78 100 09/29/18 23:19 141/65 H 98 Weight Weight 71.123 kg I&O: 09/29/18 09/30/18 10/01/18 06:59 06:59 06:59 Intake Total 710 300 Output Total 850 Balance -140 300 Result Diagrams: 09/29/18 12:10 09/29/18 12:10 Additional Labs: Accuchecks 09/30/18 09/29/18 09/29/18 05:47 19:59 12:10 POC Glucose 123 H 128 H 148 H Phys Exam - Physical Examination HEENT: PERRLA, moist MMs Neck: no nodes, no JVD air movement diminished to upper lobes Cardiovascular: RRR, no significant murmur Gastrointestinal: soft, non-tender Musculoskeletal: no edema Neurological: moves all 4 limbs Lymphatic: no nodes Psychiatric: normal affect, A&O x 3 Skin: cap refill <2 seconds Dx/Plan (1) CVA (cerebral vascular accident) Code(s): I63.9 - CEREBRAL INFARCTION, UNSPECIFIED Status: Acute (2) Diabetes Code(s): E11.9 - TYPE 2 DIABETES MELLITUS WITHOUT COMPLICATIONS Status: Chronic (3) Hypertension Code(s): I10 - ESSENTIAL (PRIMARY) HYPERTENSION Status: Chronic (4) Hyperlipemia Code(s): E78.5 - HYPERLIPIDEMIA, UNSPECIFIED Status: Chronic (5) Chronic kidney disease Code(s): N18.9 - CHRONIC KIDNEY DISEASE, UNSPECIFIED Status: Chronic Qualifiers: Chronic kidney disease stage: stage 3 (moderate) Qualified Code(s): N18.3 - Chronic kidney disease, stage 3 (moderate) - Plan cont current plan of care, PT/OT Awaiting Echo, Neurology consult -: Pt/OT/Speech eval pending, pt requesting rehab -: Will continue to monitor, recheck labs in AM * .
[2018-09-30 10:33] LABS: #Eosinphils 0.4 thou/uL (0.0-0.7); #Lymphocytes 1.3 thou/uL (1.20-3.40); #Monocytes 0.3 thou/uL (0.11-0.59); #Neutrophils 3.7 thou/uL (1.40-6.50); %Basophils 0.3 % (0.0-1.0); %Eosinophils 7.5 % (0.0-10.0); %Lymphocytes 22.1 % (21.0-51.0); %Monocytes 5.7 % (0.0-10.0); %Neutrophils 64.4 % (42.0-75.0); Hemoglobin 13.8 g/dL (14.0-18.0); Mean Corpuscular HGB CONC 33.8 g/dL (32.0-36.0); Mean Corpuscular Volume 97.5 fL (78.0-98.0); Mean Platelet Volume 7.3 fL (7.4-10.4); Platelet Count 192 thou/uL (130-400); RBC Distribution Width 11.5 % (11.5-14.5); Red Blood Cell (RBC) Count 4.17 mill/uL (4.70-6.10); White Blood Cell (WBC) Count 5.8 thou/uL (4.8-10.8)
[2018-09-30 10:54] LABS: Anion Gap 13 mmol/L (10-20); BUN (Urea Nitrogen) 25 mg/dL (8.4-25.7); Calc. Creatinine Clearance 43 mL/min (70-130); Calcium 9.7 mg/dL (7.8-10.44); Carbon Dioxide 25 mmol/L (23-31); Chloride 102 mmol/L (98-107); Estimated GFR-MDRD 53; Glucose 128 mg/dL (83-110); Potassium 4.1 mmol/L (3.5-5.1); Sodium 136 mmol/L (136-145)
[2018-09-30] MEDS ORDERED: Atorvastatin Calcium 40 MG TAB PO SCH (21:00)
[2018-09-30] MEDS ORDERED: Pravastatin Sodium 20 MG TAB PO SCH (21:00)
[2018-09-30] MEDS: Nebivolol HCl 5 MG TAB PO SCH (21:12)
[2018-09-30] MEDS: Atorvastatin Calcium 40 MG TAB PO SCH (21:14)
[2018-10-01 06:11] LABS: Anion Gap 11 mmol/L (10-20); BUN (Urea Nitrogen) 23 mg/dL (8.4-25.7); Calc. Creatinine Clearance 45 mL/min (70-130); Calcium 9.3 mg/dL (7.8-10.44); Carbon Dioxide 25 mmol/L (23-31); Chloride 104 mmol/L (98-107); Estimated GFR-MDRD 56; Glucose 115 mg/dL (83-110); Sodium 136 mmol/L (136-145)
[2018-10-01 06:25] LABS: Eosinophils 3 % (0-10); Hemoglobin 12.6 g/dL (14.0-18.0); Hypochromia SLIGHT = 6-15 cells (100X) (0-5/hpf); Lymphocytes 9 % (21-51); MDiff Complete? YES; Mean Corpuscular HGB CONC 33.9 g/dL (32.0-36.0); Mean Corpuscular Volume 97.3 fL (78.0-98.0); Mean Platelet Volume 6.9 fL (7.4-10.4); Monocytes 6 % (0-10); Neutrophil 82 % (42-75); Platelet Count 173 thou/uL (130-400); Platelet Morphology Comment Appears Adequate; RBC Distribution Width 11.5 % (11.5-14.5); Red Blood Cell (RBC) Count 3.82 mill/uL (4.70-6.10); White Blood Cell (WBC) Count 5.6 thou/uL (4.8-10.8)
[2018-10-01] MEDS: Aspirin 325 mg Enteric Coated Tablet PO SCH (08:40)
[2018-10-01] MEDS: metFORMIN 500 MG TAB PO SCH (08:40)
[2018-10-01] MEDS: Famotidine 20 MG TAB PO SCH (08:41)
[2018-10-01] MEDS: Tamsulosin HCl 0.4 MG CAP PO SCH ×2 (08:41→21:25)
[2018-10-01] MEDS: Clopidogrel Bisulfate 75 MG TAB PO SCH (08:41)
[2018-10-01] MEDS: Fish Oil 1,000 MG CAP PO SCH ×2 (08:41→21:25)
--- NOTE | 2018-10-01 16:29 | CON ---
DATE OF CONSULTATION: 10/01/2018 CONSULTING PHYSICIAN: Hospitalist Service. IMPRESSION: 1. Lacunar stroke in the nicky. 2. Diabetes. 3. Hyperlipidemia. PLAN: 1. Continue aspirin and Plavix. 2. Increase statin to address his hyperlipidemia. 3. Rehab transfer. HISTORY OF PRESENT ILLNESS: Mr. Ramsay is a 72-year-old gentleman with a past history of a pontine stroke. He had residual left hemiparesis. He developed increased slurred speech and more difficulty walking. He came into the hospital for evaluation. His MRI of the brain confirmed an acute infarct in the nicky. His echocardiogram showed a normal ejection fraction of 50% to 55%. He had a prior Doppler evaluation of the carotids, which was unremarkable. He had been compliant with his medication. He is still having difficulty walking independently. PAST MEDICAL HISTORY: Diabetes, hyperlipidemia. ALLERGIES: NONE. SOCIAL HISTORY: No tobacco use. FAMILY HISTORY: Noncontributory. MEDICATIONS: Medication list was reviewed. REVIEW OF SYSTEMS: Ten system review of systems is otherwise negative. PHYSICAL EXAMINATION: GENERAL: He is a reasonably healthy-appearing elderly man, in no distress. VITAL SIGNS: Stable. He has been afebrile. HEENT: Pupils are equal and reactive. Conjunctivae are clear. Oropharynx clear. Cranium, normocephalic and atraumatic. NECK: Supple. No lymphadenopathy. EXTREMITIES: No cyanosis or edema. NEUROLOGIC: He is alert and appropriate. His speech was fluent and clear. There was some subtle facial asymmetry. Motor exam showed significant spastic weakness in the left upper extremity more so than in the leg. No tremor. Dysmetria is present. Sensation is intact to touch. He has been ambulating with the use of a cane, but is not very steady on his feet at this point. IMAGING DATA: EKG showed normal sinus rhythm. SUMMARY: This is an elderly gentleman with lacunar infarction secondary to his underlying diabetes and hyperlipidemia. His cholesterol ratio is a bit poor and would benefit from addressing this. He is already on maximum antiplatelet therapy. I agree with rehab transfer. Job ID: [id number]
--- NOTE | 2018-10-01 20:20 | PRG ---
DATE OF SERVICE: 10/01/2018 SUBJECTIVE: The patient is a 72-year-old male with diabetes mellitus type 2, hypertension, hyperlipidemia, and HIV, presented to the hospital with slurred speech. He has a history of CVA with residual left-sided hemiparesis (2007). He currently is on aspirin 325 mg and Plavix 75 mg daily. His workup was consistent with subacute left paramedian nicky lacunar infarct. He was evaluated by Neurology, Dr. Flores, who recommended to continue aspirin and Plavix. Statin dose was increased. The patient denies any new focal deficit at this time. No chest pain, shortness of breath, or palpitations reported. OBJECTIVE: VITAL SIGNS: Temperature 97.8, pulse rate of 86, respirations 20, blood pressure of 109/61 with O2 saturation 100% on room air. Intake of 900, output 725. GENERAL: A 72-year-old male, in no apparent distress. LUNGS: Clear to auscultation bilaterally. HEART: S1 and S2 present. Regular rate and rhythm. ABDOMEN: Soft, nontender. Bowel sounds present. No rebound. EXTREMITIES: No edema or calf tenderness. NEUROLOGIC: Exam is unchanged. The patient has chronic left-sided hemiparesis. He continues to have expressive aphasia. Grossly nonfocal. PSYCHIATRY: AAO x 3. Normal affect. Telemetry monitoring by my review showed sinus rhythm. CURRENT MEDICATIONS: Reviewed. The patient is on: 1. Aspirin. 2. Plavix. 3. Lipitor 40. 4. Metformin. 5. Bystolic. 6. Flomax. LABORATORY DATA: WBC 5.6, hemoglobin 12.6, platelets 173. BUN 23, creatinine 1.49. Echocardiogram showed left ventricular ejection fraction 50% to 55%. Aortic valve was thickened. Carotid Doppler showed 50% to 69% stenosis of the left internal carotid artery. IMPRESSION: 1. Acute cerebrovascular accident involving the left paramedian nicky. 2. 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 3. Moderate stenosis involving the left internal carotid artery. 4. Expressive dysphasia secondary to #1. 5. Hypertension. 6. Diabetes mellitus type 2. 7. Hyperlipidemia. 8. History of human immunodeficiency virus, on highly active antiretroviral therapy. 9. Acute kidney injury on chronic kidney disease stage 3. PLAN: The patient's aspirin and Plavix will be continued per Neurology recommendation. Statin dose has been increased. We will continue his current home medications. He was advised to follow up with Dr. West as outpatient for carotid stenosis. We will avoid CT angiogram of the neck due to elevated creatinine. His creatinine on admission was 1.92 with GFR of 42. Stroke team. Job ID: [id number] MTDD
[2018-10-01] MEDS: Atorvastatin Calcium 40 MG TAB PO SCH (21:26)
[2018-10-01] MEDS: Nebivolol HCl 5 MG TAB PO SCH (21:26)
[2018-10-02] MEDS: Fish Oil 1,000 MG CAP PO SCH ×2 (08:05→20:47)
[2018-10-02] MEDS: Aspirin 325 mg Enteric Coated Tablet PO SCH (08:05)
[2018-10-02] MEDS: metFORMIN 500 MG TAB PO SCH (08:05)
[2018-10-02] MEDS: Tamsulosin HCl 0.4 MG CAP PO SCH ×2 (08:06→20:48)
[2018-10-02] MEDS: Famotidine 20 MG TAB PO SCH (08:06)
[2018-10-02] MEDS: Clopidogrel Bisulfate 75 MG TAB PO SCH (08:06)
[2018-10-02] MEDS: ABACAVIR LAMIVUDINE PO SCH (08:07)
[2018-10-02] MEDS: Dolutegravir Sodium [Tivicay] 50 MG PO SCH (08:07)
[2018-10-02] MEDS ORDERED: Polyethylene Glycol 3350 17 GM Packet PO PRN (15:53)
--- NOTE | 2018-10-02 17:23 | PDOC.PN ---
- Subjective Encounter Start Date: 10/02/18 Encounter Start Time: 15:00 Patient seen and examined for CVA. No new focal deficits. No N/V. No new complaints. No overnight events - Objective Resuscitation Status - Order Detail: 09/30/18 05:54 Resuscitation Status Routine Resuscitation Status: FULL: Full Resuscitation MAR Reviewed: Yes Vital Signs & Weight: Vital Signs (12 hours) Temp Pulse Pulse Pulse Resp BP BP 10/02/18 16:00 97.7 F 79 16 10/02/18 12:00 97.8 F 80 16 10/02/18 10:00 84 89 124/65 148/99 H 10/02/18 08:00 97.6 F 72 18 BP Pulse Ox 10/02/18 16:00 121/71 99 10/02/18 12:00 124/65 95 10/02/18 10:00 10/02/18 08:00 125/78 96 Weight Admit Weight 156 lb 12.8 oz Weight 156 lb 12.8 oz I&O: 10/01/18 10/02/18 10/03/18 06:59 06:59 06:59 Intake Total 900 900 Output Total 725 Balance 175 900 Result Diagrams: 10/01/18 05:42 10/01/18 05:42 Additional Labs: Accuchecks 10/02/18 10/02/18 10/02/18 16:37 11:01 05:49 POC Glucose 127 H 140 H 117 H 10/01/18 10/01/18 21:10 17:09 POC Glucose 125 H 115 H EKG Reviewed by me: Yes (Tele SR) Phys Exam - Physical Examination Constitutional: NAD Respiratory: no wheezing, no rhonchi Cardiovascular: RRR, no rub Gastrointestinal: soft, non-tender, positive bowel sounds Musculoskeletal: no edema Dx/Plan - Plan DVT proph w/SCDs IMPRESSION: 1. Acute cerebrovascular accident involving the left paramedian nicky. 2. 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 3. Moderate stenosis involving the left internal carotid artery. 4. Expressive dysphasia secondary to #1. 5. Hypertension. 6. Diabetes mellitus type 2. 7. Hyperlipidemia. 8. History of human immunodeficiency virus, on highly active antiretroviral therapy. 9. Acute kidney injury on chronic kidney disease stage 3. - improving 10. BPH PLAN: Cont Aspirin and Plavix with Statin AM labs Cont other meds as below Stable for dc - Await insurance approval for rehab Cont sliding scale Review of Systems - Review of Systems Respiratory: negative: Cough, Dry, Shortness of Breath, Hemoptysis, SOB with Excertion, Pleuritic Pain, Sputum, Wheezing Cardiovascular: negative: chest pain, palpitations, orthopnea, paroxysmal nocturnal dyspnea, edema, light headedness, other - Medications/Allergies Allergies/Adverse Reactions: Allergies Allergy/AdvReac Type Severity Reaction Status Date / Time No Known Allergies Allergy Verified 09/29/18 17:18 Medications: Current Medications Acetaminophen (Tylenol) 1,000 mg PO Q6H PRN PRN Reason: Mild Pain (1-3) Albuterol/Ipratropium (Duoneb) 3 ml NEB [id number] PRN PRN Reason: SOB &/or Wheezing Aspirin (Ecotrin) 325 mg PO DAILY [facility] Last Admin: 10/02/18 08:05 Dose: 325 mg Atorvastatin Calcium (Lipitor) 40 mg PO HS [facility] Last Admin: 10/01/18 21:26 Dose: 40 mg Clopidogrel Bisulfate (Plavix) 75 mg PO DAILY [facility] Last Admin: 10/02/18 08:06 Dose: 75 mg Dextrose/Water (Dextrose 50%) 25 gm SLOW IVP PRN PRN PRN Reason: Hypoglycemia Famotidine (Pepcid) 20 mg PO DAILY [facility] Last Admin: 10/02/18 08:06 Dose: 20 mg Fish Oil (Fish Oil) 2,000 mg PO BID [facility] Last Admin: 10/02/18 08:05 Dose: 2,000 mg Glucagon (Glucagon) 1 mg IM PRN PRN PRN Reason: Hypoglycemia Hydralazine HCl (Apresoline) 10 mg SLOW IVP Q4H PRN PRN Reason: BP > 220/110 Dextrose/Water (D5w) 1,000 mls @ 0 mls/hr IV .Q0M PRN PRN Reason: Hypoglycemia Insulin Human Lispro (Humalog) 0 units SC .MILD SLIDING SCALE PRN PRN Reason: Mild Correctional Scale Insulin Human Lispro (Humalog) 0 units SC .BEDTIME SLIDING SC PRN PRN Reason: Bedtime Correctional Scale Metformin HCl (Glucophage) 500 mg PO QAM-WM [facility] Last Admin: 10/02/18 08:05 Dose: 500 mg Nebivolol (Bystolic) 15 mg PO HS [facility] Last Admin: 10/01/18 21:26 Dose: 15 mg Ondansetron HCl (Zofran Odt) 4 mg PO Q6H PRN PRN Reason: Nausea/Vomiting Ondansetron HCl (Zofran) 4 mg IVP Q6H PRN PRN Reason: Nausea/Vomiting Abacavir-Lamivudine (600-300 Mg) 0 each PO DAILY [facility] Last Admin: 10/02/18 08:07 Dose: 1 each Dolutegravir Sodium ([Tivicay] 50 Mg) 0 each PO DAILY [facility] Last Admin: 10/02/18 08:07 Dose: 1 each Polyethylene Glycol (Miralax) 17 gm PO DAILY PRN PRN Reason: Constipation Sodium Chloride (Flush - Normal Saline) 10 ml IVF PRN PRN PRN Reason: Saline Flush Tamsulosin HCl (Flomax) 0.4 mg PO BID [facility] Last Admin: 10/02/18 08:06 Dose: 0.4 mg
[2018-10-02] MEDS: Atorvastatin Calcium 40 MG TAB PO SCH (20:48)
[2018-10-02] MEDS: Nebivolol HCl 5 MG TAB PO SCH (20:54)
[2018-10-03 04:47] LABS: Hemoglobin 12.7 g/dL (14.0-18.0); Platelet Count 192 thou/uL (130-400)
[2018-10-03 04:57] LABS: Anion Gap 10 mmol/L (10-20); BUN (Urea Nitrogen) 24 mg/dL (8.4-25.7); Calc. Creatinine Clearance 45 mL/min (70-130); Calcium 9.5 mg/dL (7.8-10.44); Carbon Dioxide 27 mmol/L (23-31); Chloride 105 mmol/L (98-107); Estimated GFR-MDRD 56; Glucose 99 mg/dL (83-110); Magnesium 1.7 mg/dL (1.6-2.6); Sodium 138 mmol/L (136-145)
[2018-10-03] MEDS: Fish Oil 1,000 MG CAP PO SCH ×2 (08:31→21:22)
[2018-10-03] MEDS: Aspirin 325 mg Enteric Coated Tablet PO SCH (08:31)
[2018-10-03] MEDS: metFORMIN 500 MG TAB PO SCH (08:32)
[2018-10-03] MEDS: Clopidogrel Bisulfate 75 MG TAB PO SCH (08:32)
[2018-10-03] MEDS: Famotidine 20 MG TAB PO SCH (08:32)
[2018-10-03] MEDS: Tamsulosin HCl 0.4 MG CAP PO SCH ×2 (08:32→21:23)
[2018-10-03] MEDS: Dolutegravir Sodium [Tivicay] 50 MG PO SCH (08:33)
[2018-10-03] MEDS: ABACAVIR LAMIVUDINE PO SCH (08:34)
[2018-10-03] MEDS ORDERED: hydrALAZINE 20 MG/ML VIAL SLOW IVP PRN (15:41)
--- NOTE | 2018-10-03 16:21 | EKG ---
Test Reason : STROKESYMPTOMS Blood Pressure : / mmHG Vent. Rate : 101 BPM Atrial Rate : 101 BPM P-R Int : 172 ms QRS Dur : 136 ms QT Int : 378 ms P-R-T Axes : 076 032 053 degrees QTc Int : 490 ms Sinus tachycardia Possible Left atrial enlargement Right bundle branch block Septal infarct , age undetermined T wave abnormality, consider lateral ischemia Abnormal ECG Confirmed by SERA NICHOLS MD ([id number]), visual effects editor DAVI HEARD ([id number]) on 10/03/2018 4:20:49 PM Referred By: MAGDALENA Confirmed By:SERA NICHOLS MD
--- NOTE | 2018-10-03 17:55 | PDOC.PN ---
- Subjective Encounter Start Date: 10/03/18 Encounter Start Time: 15:00 Patient seen and examined for Acute CVA. No new focal deficits. No CP/SOB. No new complaints. No overnight events - Objective Resuscitation Status - Order Detail: 09/30/18 05:54 Resuscitation Status Routine Resuscitation Status: FULL: Full Resuscitation MAR Reviewed: Yes Vital Signs & Weight: Vital Signs (12 hours) Temp Pulse Pulse Pulse Resp BP BP 10/03/18 15:35 98.5 F 79 16 10/03/18 11:41 98.1 F 79 16 10/03/18 10:02 77 77 137/65 143/75 H 10/03/18 07:59 98.2 F 69 18 BP Pulse Ox 10/03/18 15:35 132/69 98 10/03/18 11:41 115/66 99 10/03/18 10:02 10/03/18 07:59 142/72 H 98 Weight Admit Weight 156 lb 12.8 oz Weight 156 lb 12.8 oz I&O: 10/02/18 10/03/18 10/04/18 06:59 06:59 06:59 Intake Total 900 240 350 Output Total 250 Balance 900 -10 350 Result Diagrams: 10/03/18 04:10 10/03/18 04:10 Additional Labs: Accuchecks 10/03/18 10/03/18 10/03/18 16:48 11:05 05:43 POC Glucose 117 H 95 110 10/02/18 20:22 POC Glucose 98 EKG Reviewed by me: Yes (Tele SR) Phys Exam - Physical Examination Constitutional: NAD Respiratory: no wheezing, no rhonchi Cardiovascular: RRR, no rub Gastrointestinal: soft, non-tender, positive bowel sounds Musculoskeletal: no edema Neurological: moves all 4 limbs Dx/Plan - Plan DVT proph w/SCDs IMPRESSION: 1. Acute cerebrovascular accident involving the left paramedian nicky. 2. 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 3. Moderate stenosis involving the left internal carotid artery. 4. Expressive dysphasia secondary to #1. 5. Hypertension. 6. Diabetes mellitus type 2 - Cont sliding scale 7. Hyperlipidemia. 8. History of human immunodeficiency virus, on highly active antiretroviral therapy. 9. Acute kidney injury on chronic kidney disease stage 3. - improved 10. BPH 11. 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 Restart Losartan at low dose Cont other meds as below Stable for dc - Await insurance approval for rehab Review of Systems - Review of Systems Respiratory: negative: Cough, Dry, Shortness of Breath, Hemoptysis, SOB with Excertion, Pleuritic Pain, Sputum, Wheezing Cardiovascular: negative: chest pain, palpitations, orthopnea, paroxysmal nocturnal dyspnea, edema, light headedness, other Gastrointestinal: negative: Nausea, Vomiting, Abdominal Pain, Diarrhea, Constipation, Melena, Hematochezia, Other - Medications/Allergies Allergies/Adverse Reactions: Allergies Allergy/AdvReac Type Severity Reaction Status Date / Time No Known Allergies Allergy Verified 09/29/18 17:18 Medications: Current Medications Acetaminophen (Tylenol) 1,000 mg PO Q6H PRN PRN Reason: Mild Pain (1-3) Albuterol/Ipratropium (Duoneb) 3 ml NEB [id number] PRN PRN Reason: SOB &/or Wheezing Aspirin (Ecotrin) 325 mg PO DAILY [facility] Last Admin: 10/03/18 08:31 Dose: 325 mg Atorvastatin Calcium (Lipitor) 40 mg PO HS [facility] Last Admin: 10/02/18 20:48 Dose: 40 mg Clopidogrel Bisulfate (Plavix) 75 mg PO DAILY [facility] Last Admin: 10/03/18 08:32 Dose: 75 mg Dextrose/Water (Dextrose 50%) 25 gm SLOW IVP PRN PRN PRN Reason: Hypoglycemia Famotidine (Pepcid) 20 mg PO DAILY [facility] Last Admin: 10/03/18 08:32 Dose: 20 mg Fish Oil (Fish Oil) 2,000 mg PO BID [facility] Last Admin: 10/03/18 08:31 Dose: 2,000 mg Glucagon (Glucagon) 1 mg IM PRN PRN PRN Reason: Hypoglycemia Hydralazine HCl (Apresoline) 10 mg SLOW IVP Q4H PRN PRN Reason: SBP Greater Than 180 Hydrochlorothiazide (Hydrochlorothiazide) 12.5 mg PO DAILY [facility] Dextrose/Water (D5w) 1,000 mls @ 0 mls/hr IV .Q0M PRN PRN Reason: Hypoglycemia Insulin Human Lispro (Humalog) 0 units SC .MILD SLIDING SCALE PRN PRN Reason: Mild Correctional Scale Insulin Human Lispro (Humalog) 0 units SC .BEDTIME SLIDING SC PRN PRN Reason: Bedtime Correctional Scale Losartan Potassium (Cozaar) 100 mg PO DAILY [facility] Metformin HCl (Glucophage) 500 mg PO QAM-WM [facility] Last Admin: 10/03/18 08:32 Dose: 500 mg Nebivolol (Bystolic) 5 mg PO DAILY [facility] Ondansetron HCl (Zofran Odt) 4 mg PO Q6H PRN PRN Reason: Nausea/Vomiting Ondansetron HCl (Zofran) 4 mg IVP Q6H PRN PRN Reason: Nausea/Vomiting Abacavir-Lamivudine (600-300 Mg) 0 each PO DAILY [facility] Last Admin: 10/03/18 08:34 Dose: 1 each Dolutegravir Sodium ([Tivicay] 50 Mg) 0 each PO DAILY [facility] Last Admin: 10/03/18 08:33 Dose: 1 each Polyethylene Glycol (Miralax) 17 gm PO DAILY PRN PRN Reason: Constipation Sodium Chloride (Flush - Normal Saline) 10 ml IVF PRN PRN PRN Reason: Saline Flush Last Admin: 10/02/18 20:54 Dose: 10 ml Tamsulosin HCl (Flomax) 0.4 mg PO BID [facility] Last Admin: 10/03/18 08:32 Dose: 0.4 mg
[2018-10-03] MEDS: Atorvastatin Calcium 40 MG TAB PO SCH (21:22)
[2018-10-03] MEDS: Nebivolol HCl 5 MG TAB PO SCH (21:22)
[2018-10-03] MEDS: Losartan 25 MG TAB PO SCH (21:23)
[2018-10-04] MEDS: metFORMIN 500 MG TAB PO SCH (08:54)
[2018-10-04] MEDS: Famotidine 20 MG TAB PO SCH (08:55)
[2018-10-04] MEDS: Aspirin 325 mg Enteric Coated Tablet PO SCH (08:55)
[2018-10-04] MEDS: Clopidogrel Bisulfate 75 MG TAB PO SCH (08:56)
[2018-10-04] MEDS: Losartan 25 MG TAB PO SCH ×2 (08:56→21:40)
[2018-10-04] MEDS: Tamsulosin HCl 0.4 MG CAP PO SCH ×2 (08:57→21:38)
[2018-10-04] MEDS: Nebivolol HCl 5 MG TAB PO SCH (08:57)
[2018-10-04] MEDS: Fish Oil 1,000 MG CAP PO SCH ×2 (08:58→21:39)
[2018-10-04] MEDS ORDERED: Losartan 25 MG TAB PO SCH (09:00)
[2018-10-04] MEDS ORDERED: Nebivolol HCl 5 MG TAB PO SCH (09:00)
[2018-10-04] MEDS ORDERED: Hydrochlorothiazide 25 MG TAB PO SCH (09:00)
[2018-10-04] MEDS: ABACAVIR LAMIVUDINE PO SCH (09:00)
[2018-10-04] MEDS: Dolutegravir Sodium [Tivicay] 50 MG PO SCH (09:01)
--- NOTE | 2018-10-04 12:21 | PDOC.PN ---
- Subjective Encounter Start Date: 10/04/18 Encounter Start Time: 08:30 Patient seen and examined for Acute CVA. No new focal deficits. No diplopia. No new complaints. No overnight events - Objective Resuscitation Status - Order Detail: 09/30/18 05:54 Resuscitation Status Routine Resuscitation Status: FULL: Full Resuscitation MAR Reviewed: Yes Vital Signs & Weight: Vital Signs (12 hours) Temp Pulse Resp BP Pulse Ox 10/04/18 11:48 98.0 F 65 18 126/87 98 10/04/18 08:53 98 10/04/18 07:57 98.0 F 68 18 133/66 98 10/04/18 04:00 97.9 F 88 16 120/64 100 Weight Admit Weight 156 lb 12.8 oz Weight 156 lb 12.8 oz I&O: 10/03/18 10/04/18 10/05/18 06:59 06:59 06:59 Intake Total 240 490 Output Total 250 400 Balance -10 90 Result Diagrams: 10/03/18 04:10 10/03/18 04:10 Additional Labs: Accuchecks 10/04/18 10/04/18 10/03/18 10:50 06:15 20:05 POC Glucose 96 119 H 143 H 10/03/18 16:48 POC Glucose 117 H EKG Reviewed by me: Yes (Tele SR, 2 nd deg AV block - type 1) Phys Exam - Physical Examination Constitutional: NAD Respiratory: no wheezing, no rhonchi Cardiovascular: RRR, no rub Gastrointestinal: soft, non-tender, positive bowel sounds Musculoskeletal: no edema Neuro - no new focal deficits, Psychiatric: A&O x 3 Dx/Plan - Plan DVT proph w/SCDs IMPRESSION: 1. Acute cerebrovascular accident involving the left paramedian nicky. 2. 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 3. Moderate stenosis involving the left internal carotid artery. 4. 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 Hypertension. 6. Diabetes mellitus type 2 - 7. Hyperlipidemia. 8. Expressive dysphasia secondary to #1. 9. Acute kidney injury on chronic kidney disease stage 3. - improved 10. BPH 11. Swallow dys - on modified diet 12. History of human immunodeficiency virus, on highly active antiretroviral therapy. PLAN: Reduce Bystolic dose to 2.5 mg daily - I confirmed with Anesthesiology Teacher communication lecturer ( Dr Smith) Add Amlodipine Cont Aspirin/Plavix/Statin Cont sliding scale Cont Losartan at low dose Cont other meds as below Stable for discharge Await insurance approval for rehab Review of Systems - Review of Systems Respiratory: negative: Cough, Dry, Shortness of Breath, Hemoptysis, SOB with Excertion, Pleuritic Pain, Sputum, Wheezing Cardiovascular: negative: chest pain, palpitations, orthopnea, paroxysmal nocturnal dyspnea, edema, light headedness, other Gastrointestinal: negative: Nausea, Vomiting, Abdominal Pain, Diarrhea, Constipation, Melena, Hematochezia, Other - Medications/Allergies Allergies/Adverse Reactions: Allergies Allergy/AdvReac Type Severity Reaction Status Date / Time No Known Allergies Allergy Verified 09/29/18 17:18 Medications: Current Medications Acetaminophen (Tylenol) 1,000 mg PO Q6H PRN PRN Reason: Mild Pain (1-3) Albuterol/Ipratropium (Duoneb) 3 ml NEB [id number] PRN PRN Reason: SOB &/or Wheezing Amlodipine Besylate (Norvasc) 2.5 mg PO BID [facility] Aspirin (Ecotrin) 325 mg PO DAILY [facility] Last Admin: 10/04/18 08:55 Dose: 325 mg Atorvastatin Calcium (Lipitor) 40 mg PO HS [facility] Last Admin: 10/03/18 21:22 Dose: 40 mg Clopidogrel Bisulfate (Plavix) 75 mg PO DAILY [facility] Last Admin: 10/04/18 08:56 Dose: 75 mg Dextrose/Water (Dextrose 50%) 25 gm SLOW IVP PRN PRN PRN Reason: Hypoglycemia Famotidine (Pepcid) 20 mg PO DAILY [facility] Last Admin: 10/04/18 08:55 Dose: 20 mg Fish Oil (Fish Oil) 2,000 mg PO BID [facility] Last Admin: 10/04/18 08:58 Dose: 2,000 mg Glucagon (Glucagon) 1 mg IM PRN PRN PRN Reason: Hypoglycemia Hydralazine HCl (Apresoline) 10 mg SLOW IVP Q4H PRN PRN Reason: SBP Greater Than 180 Dextrose/Water (D5w) 1,000 mls @ 0 mls/hr IV .Q0M PRN PRN Reason: Hypoglycemia Insulin Human Lispro (Humalog) 0 units SC .MILD SLIDING SCALE PRN PRN Reason: Mild Correctional Scale Insulin Human Lispro (Humalog) 0 units SC .BEDTIME SLIDING SC PRN PRN Reason: Bedtime Correctional Scale Losartan Potassium (Cozaar) 25 mg PO BID [facility] Last Admin: 10/04/18 08:56 Dose: 25 mg Nebivolol (Bystolic) 2.5 mg PO DAILY [facility] Ondansetron HCl (Zofran Odt) 4 mg PO Q6H PRN PRN Reason: Nausea/Vomiting Ondansetron HCl (Zofran) 4 mg IVP Q6H PRN PRN Reason: Nausea/Vomiting Abacavir-Lamivudine (600-300 Mg) 0 each PO DAILY [facility] Last Admin: 10/04/18 09:00 Dose: 1 each Dolutegravir Sodium ([Tivicay] 50 Mg) 0 each PO DAILY [facility] Last Admin: 10/04/18 09:01 Dose: 1 each Polyethylene Glycol (Miralax) 17 gm PO DAILY PRN PRN Reason: Constipation Sodium Chloride (Flush - Normal Saline) 10 ml IVF PRN PRN PRN Reason: Saline Flush Last Admin: 10/02/18 20:54 Dose: 10 ml Tamsulosin HCl (Flomax) 0.4 mg PO BID [facility] Last Admin: 10/04/18 08:57 Dose: 0.4 mg
[2018-10-04] MEDS: Atorvastatin Calcium 40 MG TAB PO SCH (21:38)
[2018-10-04] MEDS: Amlodipine 5 MG TAB PO SCH (21:39)
[2018-10-05] MEDS: Aspirin 325 mg Enteric Coated Tablet PO SCH (08:54)
[2018-10-05] MEDS: Amlodipine 5 MG TAB PO SCH ×2 (08:54→21:23)
[2018-10-05] MEDS: Clopidogrel Bisulfate 75 MG TAB PO SCH (08:55)
[2018-10-05] MEDS: Famotidine 20 MG TAB PO SCH (08:55)
[2018-10-05] MEDS: Losartan 25 MG TAB PO SCH ×2 (08:56→21:23)
[2018-10-05] MEDS: Nebivolol HCl 2.5 MG TAB PO SCH (08:56)
[2018-10-05] MEDS: Tamsulosin HCl 0.4 MG CAP PO SCH ×2 (08:57→21:23)
[2018-10-05] MEDS: Dolutegravir Sodium [Tivicay] 50 MG PO SCH (08:57)
[2018-10-05] MEDS: Fish Oil 1,000 MG CAP PO SCH ×2 (08:58→21:23)
[2018-10-05] MEDS: ABACAVIR LAMIVUDINE PO SCH (08:59)
--- NOTE | 2018-10-05 11:58 | PDOC.PN ---
- Subjective Encounter Start Date: 10/05/18 Encounter Start Time: 10:30 Patient seen and examined for Acute CVA. No new CP/SOB or focal deficits. No new complaints. No overnight events - Objective Resuscitation Status - Order Detail: 09/30/18 05:54 Resuscitation Status Routine Resuscitation Status: FULL: Full Resuscitation MAR Reviewed: Yes Vital Signs & Weight: Vital Signs (12 hours) Temp Pulse Resp BP BP Pulse Ox 10/05/18 08:54 69 141/73 H 10/05/18 08:52 98 10/05/18 08:00 98.0 F 69 16 141/73 H 98 10/05/18 03:45 97.6 F 75 16 114/70 99 10/05/18 00:00 97.5 F L 65 16 134/66 97 Weight Admit Weight 156 lb 12.8 oz Weight 156 lb 12.8 oz I&O: 10/04/18 10/05/18 10/06/18 06:59 06:59 06:59 Intake Total 490 1080 Output Total 400 625 Balance 90 455 Result Diagrams: 10/03/18 04:10 10/03/18 04:10 Additional Labs: Accuchecks 10/05/18 10/05/18 10/04/18 10:39 06:06 20:18 POC Glucose 130 H 105 107 10/04/18 17:07 POC Glucose 151 H EKG Reviewed by me: Yes (Tele SR) Phys Exam - Physical Examination Constitutional: NAD Respiratory: no wheezing, no rhonchi Cardiovascular: RRR, no rub Gastrointestinal: soft, non-tender, positive bowel sounds Musculoskeletal: no edema Neurological: moves all 4 limbs neuro exam unchanged Dx/Plan - Plan DVT proph w/SCDs IMPRESSION: 1. Acute cerebrovascular accident involving the left paramedian nicky. 2. 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 3. Moderate stenosis involving the left ICA - h/o Left Carotid endaterectomy. PCP to follow 4. 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 Hypertension. 6. Diabetes mellitus type 2. 7. Hyperlipidemia. 8. Expressive dysphasia secondary to #1. 9. Acute kidney injury on chronic kidney disease stage 3. - improved 10. BPH 11. Swallow dys - on modified diet 12. History of human immunodeficiency virus, on highly active antiretroviral therapy. PLAN: Cont Bystolic 2.5 mg daily Cont Amlodipine/Losartan Cont Aspirin/Plavix/Statin Cont sliding scale Cont other meds as below Stable for discharge Await insurance approval for rehab Review of Systems - Review of Systems Respiratory: negative: Cough, Dry, Shortness of Breath, Hemoptysis, SOB with Excertion, Pleuritic Pain, Sputum, Wheezing Cardiovascular: negative: chest pain, palpitations, orthopnea, paroxysmal nocturnal dyspnea, edema, light headedness, other - Medications/Allergies Allergies/Adverse Reactions: Allergies Allergy/AdvReac Type Severity Reaction Status Date / Time No Known Allergies Allergy Verified 09/29/18 17:18 Medications: Current Medications Acetaminophen (Tylenol) 1,000 mg PO Q6H PRN PRN Reason: Mild Pain (1-3) Albuterol/Ipratropium (Duoneb) 3 ml NEB Q4CD-TA-ST PRN PRN Reason: SOB &/or Wheezing Amlodipine Besylate (Norvasc) 2.5 mg PO BID [facility] Last Admin: 10/05/18 08:54 Dose: 2.5 mg Aspirin (Ecotrin) 325 mg PO DAILY [facility] Last Admin: 10/05/18 08:54 Dose: 325 mg Atorvastatin Calcium (Lipitor) 40 mg PO HS [facility] Last Admin: 10/04/18 21:38 Dose: 40 mg Clopidogrel Bisulfate (Plavix) 75 mg PO DAILY [facility] Last Admin: 10/05/18 08:55 Dose: 75 mg Dextrose/Water (Dextrose 50%) 25 gm SLOW IVP PRN PRN PRN Reason: Hypoglycemia Famotidine (Pepcid) 20 mg PO DAILY [facility] Last Admin: 10/05/18 08:55 Dose: 20 mg Fish Oil (Fish Oil) 2,000 mg PO BID [facility] Last Admin: 10/05/18 08:58 Dose: 2,000 mg Glucagon (Glucagon) 1 mg IM PRN PRN PRN Reason: Hypoglycemia Hydralazine HCl (Apresoline) 10 mg SLOW IVP Q4H PRN PRN Reason: SBP Greater Than 180 Dextrose/Water (D5w) 1,000 mls @ 0 mls/hr IV .Q0M PRN PRN Reason: Hypoglycemia Insulin Human Lispro (Humalog) 0 units SC .MILD SLIDING SCALE PRN PRN Reason: Mild Correctional Scale Last Admin: 10/04/18 18:19 Dose: 2 unit Insulin Human Lispro (Humalog) 0 units SC .BEDTIME SLIDING SC PRN PRN Reason: Bedtime Correctional Scale Losartan Potassium (Cozaar) 25 mg PO BID [facility] Last Admin: 10/05/18 08:56 Dose: 25 mg Nebivolol (Bystolic) 2.5 mg PO DAILY [facility] Last Admin: 10/05/18 08:56 Dose: 2.5 mg Ondansetron HCl (Zofran Odt) 4 mg PO Q6H PRN PRN Reason: Nausea/Vomiting Ondansetron HCl (Zofran) 4 mg IVP Q6H PRN PRN Reason: Nausea/Vomiting Abacavir-Lamivudine (600-300 Mg) 0 each PO DAILY [facility] Last Admin: 10/05/18 08:59 Dose: 1 each Dolutegravir Sodium ([Tivicay] 50 Mg) 0 each PO DAILY [facility] Last Admin: 10/05/18 08:57 Dose: 1 each Polyethylene Glycol (Miralax) 17 gm PO DAILY PRN PRN Reason: Constipation Sodium Chloride (Flush - Normal Saline) 10 ml IVF PRN PRN PRN Reason: Saline Flush Last Admin: 10/02/18 20:54 Dose: 10 ml Tamsulosin HCl (Flomax) 0.4 mg PO BID [facility] Last Admin: 10/05/18 08:57 Dose: 0.4 mg
[2018-10-05] MEDS: Atorvastatin Calcium 40 MG TAB PO SCH (21:23)
[2018-10-06] MEDS: Clopidogrel Bisulfate 75 MG TAB PO SCH (08:05)
[2018-10-06] MEDS: Aspirin 325 mg Enteric Coated Tablet PO SCH (08:05)
[2018-10-06] MEDS: Losartan 25 MG TAB PO SCH ×2 (08:05→21:04)
[2018-10-06] MEDS: Fish Oil 1,000 MG CAP PO SCH ×2 (08:05→21:03)
[2018-10-06] MEDS: Tamsulosin HCl 0.4 MG CAP PO SCH ×2 (08:05→21:03)
[2018-10-06] MEDS: Famotidine 20 MG TAB PO SCH (08:05)
[2018-10-06] MEDS: Nebivolol HCl 2.5 MG TAB PO SCH (08:05)
[2018-10-06] MEDS: Amlodipine 5 MG TAB PO SCH ×2 (08:05→21:03)
[2018-10-06] MEDS: ABACAVIR LAMIVUDINE PO SCH (08:06)
[2018-10-06] MEDS: Dolutegravir Sodium [Tivicay] 50 MG PO SCH (08:06)
--- NOTE | 2018-10-06 10:30 | PDOC.HOSPP ---
- Subjective Subjective: Patient seen and examined for Acute CVA. No new CP/SOB/focal deficits. No new complaints. No overnight events - Objective Vital Signs & Weight: Vital Signs (12 hours) Temp Pulse Resp BP BP Pulse Ox 10/06/18 08:15 100 10/06/18 08:05 97 10/06/18 07:28 97.5 F L 97 20 126/68 142/75 H 100 10/06/18 04:00 97.6 F 86 18 134/67 98 10/06/18 00:00 97.4 F L 74 16 122/66 98 Weight Admit Weight 156 lb 12.8 oz Weight 156 lb 12.8 oz I&O: 10/05/18 10/06/18 10/07/18 06:59 06:59 06:59 Intake Total 1080 1280 Output Total 625 775 150 Balance 455 505 -150 Result Diagrams: 10/03/18 04:10 10/03/18 04:10 Additional Labs: Accuchecks 10/06/18 10/05/18 10/05/18 06:12 20:33 16:35 POC Glucose 108 139 H 128 H 10/05/18 10:39 POC Glucose 130 H EKG Reviewed by me: Yes (Tele SR) ROS - Review of Systems All systems: All other ROS were reviewed and found negative. Respiratory: negative: cough, dry, shortness of breath, hemoptysis, SOB with excertion, pleuritic pain, sputum, wheezing, other Cardiovascular: negative: chest pain, palpitations, orthopnea, paroxysmal noc. dyspnea, edema, light headedness, other Gastrointestinal: negative: nausea, vomitting, abdominal pain, diarrhea, constipation, melena, hematochezia, other - Medication Medications: Active Medications Generic Name Dose Route Start Last Admin Trade Name Freq PRN Reason Stop Dose Admin Amlodipine Besylate 2.5 mg 10/04/18 21:00 10/06/18 08:05 Norvasc PO 2.5 mg BID [facility] Administration Aspirin 325 mg 09/30/18 09:00 10/06/18 08:05 Ecotrin PO 325 mg DAILY [facility] Administration Atorvastatin Calcium 40 mg 09/30/18 21:00 10/05/18 21:23 Lipitor PO 40 mg HS [facility] Administration Clopidogrel Bisulfate 75 mg 09/30/18 09:00 07/23/19 08:05 Plavix PO 75 mg DAILY [facility] Administration Famotidine 20 mg 09/30/18 09:00 10/06/18 08:05 Pepcid PO 20 mg DAILY [facility] Administration Fish Oil 2,000 mg 09/30/18 09:00 10/06/18 08:05 Fish Oil PO 2,000 mg BID [facility] Administration Insulin Human Lispro 0 units 09/30/18 06:02 10/04/18 18:19 Humalog SC 2 unit .MILD SLIDING SCALE PRN Administration Mild Correctional Scale Losartan Potassium 25 mg 10/03/18 21:00 10/06/18 08:05 Cozaar PO 25 mg BID [facility] Administration Nebivolol 2.5 mg 10/05/18 09:00 10/06/18 08:05 Bystolic PO 2.5 mg DAILY [facility] Administration Abacavir-Lamivudine 0 each 10/02/18 09:00 10/06/18 08:06 600-300 Mg PO 1 each DAILY [facility] Administration Dolutegravir Sodium 0 each 10/02/18 09:00 10/06/18 08:06 [Tivicay] 50 Mg PO 1 each DAILY [facility] Administration Sodium Chloride 10 ml 09/30/18 06:02 10/02/18 20:54 Flush - Normal Saline IVF 10 ml PRN PRN Administration Saline Flush Tamsulosin HCl 0.4 mg 09/30/18 09:00 10/06/18 08:05 Flomax PO 0.4 mg BID [facility] Administration - Exam NAD Heart: RRR, no gallops Respiratory: CTAB, no rales Gastrointestinal: soft, non-distended Extremities: no edema Neurological: no new deficit Hosp A/P - Plan PT/OT, speech therapy, DVT proph w/SCDs IMPRESSION: 1. Acute cerebrovascular accident involving the left paramedian nicky. 2. 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 3. Moderate stenosis involving the left ICA - h/o Left Carotid endaterectomy 2011. PCP to follow 4. 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 Hypertension. 6. Diabetes mellitus type 2. on sliding scale 7. Hyperlipidemia. Statin dose increased 8. Expressive dysphasia secondary to #1. 9. Acute kidney injury on chronic kidney disease stage 3. - improved 10. BPH 11. Swallow dys - on modified diet 12. History of human immunodeficiency virus, on highly active antiretroviral therapy. PLAN: Cont Bystolic/Amlodipine/Losartan Cont Aspirin/Plavix/Statin Stable for discharge Await insurance approval for rehab
[2018-10-06] MEDS: Atorvastatin Calcium 40 MG TAB PO SCH (21:03)
[2018-10-07] MEDS: Clopidogrel Bisulfate 75 MG TAB PO SCH (09:23)
[2018-10-07] MEDS: Fish Oil 1,000 MG CAP PO SCH (09:24)
[2018-10-07] MEDS: Losartan 25 MG TAB PO SCH (09:24)
[2018-10-07] MEDS: Amlodipine 5 MG TAB PO SCH (09:24)
[2018-10-07] MEDS: Famotidine 20 MG TAB PO SCH (09:24)
[2018-10-07] MEDS: Aspirin 325 mg Enteric Coated Tablet PO SCH (09:25)
[2018-10-07] MEDS: Tamsulosin HCl 0.4 MG CAP PO SCH (09:25)
[2018-10-07] MEDS: Nebivolol HCl 2.5 MG TAB PO SCH (09:25)
[2018-10-07] MEDS: ABACAVIR LAMIVUDINE PO SCH (09:29)
[2018-10-07] MEDS: Dolutegravir Sodium [Tivicay] 50 MG PO SCH (09:30)
[2018-10-07 15:39] VITALS: BP 120/63; TEMP 97.9
--- NOTE | 2018-10-07 15:41 | DIS ---
DATE OF ADMISSION: 09/30/2018 DATE OF DISCHARGE: 10/06/2018 DATE OF DISCHARGE: Discharge date pending insurance approval for inpatient rehabilitation. ALLERGIES: NO KNOWN DRUG ALLERGIES. DISCHARGE MEDICATION: 1. Bystolic 2.5 mg daily (dose reduced due to second-degree type 1 AV block). 2. Losartan 25 mg b.i.d. 3. Amlodipine 2.5 mg b.i.d. 4. Lipitor 40 mg at bedtime. 5. Pepcid 20 mg daily. 6. Flomax 0.4 mg b.i.d. 7. [place]-3 fish oil 2 g b.i.d. 8. Abacavir and lamivudine 600-300 daily. 9. Aspirin 325 mg daily. 10. Plavix 75 mg daily. 11. Tivicay 50 mg daily. INPATIENT MEDICAL RECORDS SECRETARY: Neurology, Dr. Flores. DIAGNOSTIC TESTS: 1. Chest x-ray on admission was negative for acute findings. 2. CT scan of the brain on admission was negative for acute findings. 3. MRI of the brain showed subacute left paramedian pontine lacunar infarct. 4. He also had remote right paramedian pontine lacunar infarct. 5. Remote left thalamic lacunar infarct. 6. Mild chronic small-vessel white matter ischemic change. 7. Echocardiogram showed left ventricular ejection fraction 50% to 55% with mild aortic regurgitation. 8. Mild mitral regurgitation. 9. Mild tricuspid regurgitation. 10. Carotid Doppler showed moderate 50% to 69% stenosis involving the left internal carotid artery. Please note that the patient has a history of carotid endarterectomy on the left. BRIEF HOSPITAL COURSE: The patient is a 72-year-old male with coronary artery disease status post CABG, diabetes mellitus type 2, hypertension, and hyperlipidemia, presented to the hospital on 29 September 2018 with slurriness of speech along with generalized weakness. His workup was consistent with acute CVA. He underwent stroke workup as discussed above. The patient was evaluated by Neurology Dr. Flores, who recommended to continue aspirin and Plavix. Dr. Flores recommended to increase the statin dose. His fasting lipid profile showed triglyceride 227, cholesterol 186, LDL 112 with HDL 29. Pravastatin 20 mg has been changed to Lipitor 40. He also had mild acute kidney injury with creatinine of 1.92. His creatinine stabilized at 1.49. Metformin has been discontinued. Losartan/HCTZ 100/12.5 has been changed to losartan 25 mg b.i.d. His HIV medications were continued. He also had second-degree AV block type 1 on the tele monitor. For this reason, Bystolic dose was reduced to 2.5 mg daily from 15 mg daily. I conformed with Dr. Smith who was covering over the weekend for Dr. Page. He was advised to follow up with Dr. Page as outpatient. He did not have any new episodes of AV block after reducing the dose of Bystolic. His blood pressure has stabilized between 120 to 130s. He was also found to have moderate stenosis of the left ICA. Please note that he has a history of left carotid endarterectomy in the past. Due to acute kidney injury, CTA of the neck was not done. He was advised to follow up with primary care physician. FINAL DIAGNOSES: 1. Acute cerebrovascular accident involving the left paramedian nicky. 2. History of cerebrovascular accident with residual left-sided weakness. 3. Slurriness of speech secondary to acute cerebrovascular accident. 4. Swallow dysfunction. The patient is on modified diet. 5. Moderate stenosis involving the left internal coronary artery. Primary care physician advised to follow. 6. History of left carotid endarterectomy. 7. Second-degree atrioventricular block type 1. No new episodes after lowering the Bystolic dose. 8. Hypertension. 9. Diabetes mellitus type 2. 10. Hyperlipidemia. Statin dose was increased. 11. Acute kidney injury on chronic kidney disease stage 3. 12. Benign prostatic hypertrophy. 13. History of human immunodeficiency virus on highly active antiretroviral therapy. PLAN: Plan of care was discussed with the patient in detail. He stated understanding. Job ID: [id number]
--- NOTE | 2018-10-08 05:21 | DIS ---
DATE OF ADMISSION: 09/30/2018 DATE OF DISCHARGE: 10/07/2018 PRIMARY CARE PROVIDER: Dr. Raghu West. Please note that a discharge summary was dictated for this patient by Dr. Ruiz on October 06, 2018. Patient was not discharged that day because he was awaiting insurance approval for inpatient rehabilitation. DISCHARGE DIAGNOSIS: Acute cerebrovascular accident involving the left paramedian nicky. Please refer to Dr. Ruiz's discharge summary for the remainder of discharge diagnosis. CONDITION OF PATIENT ON THE DAY OF DISCHARGE: Stable. I assessed Mr. Ramsay on the day of discharge. He denies any chest pain or shortness of breath. Vital signs are stable. S1 and S2 are heard, regular. Lungs are clear to auscultation bilaterally. DISCHARGE MEDICATIONS: As dictated by Dr. Ruiz in his discharge summary dated October 06, 2018. FOLLOWUP APPOINTMENTS: Patient is advised to follow up with his primary care provider, weaving instructor, and neurologist. HOSPITAL COURSE: As dictated by Dr. Ruiz in his discharge summary dated October 06, 2018. Patient was awaiting insurance authorization for inpatient rehab at that time. Insurance company approved but rehabilitation physician felt that patient could go home with home health supports. Home health is being arranged for OT, PT, and speech therapy. Many thanks for allowing me to participate in your patient's care. Please feel free to contact me with any questions or concerns. DISCHARGE DESTINATION: Home. TIME SPENT: Total amount of time spent coordinating this discharge: 22 minutes. Job ID: [id number]
== END 2018-10-07 18:06 | disposition home health service (06) | DRG 65 ==
LOC: ERS 11:53 → ERHOLD 13:40 → 2SE 17:07 → OBSVTOIN 09-30 09:32
PROVIDERS: ADMIT Internal Medicine; ATTEND Internal Medicine
DX: I63.81 Other cerebral infarction due to occlusion or stenosis of small artery (principal); I69.354 Hemiplegia and hemiparesis following cerebral infarction affecting left non-dominant side; N17.9 Acute kidney failure, unspecified; G81.91 Hemiplegia, unspecified affecting right dominant side; I25.10 Atherosclerotic heart disease of native coronary artery without angina pectoris; I12.9 Hypertensive chronic kidney disease with stage 1 through stage 4 chronic kidney disease, or unspecified chronic kidney disease; Z21 Asymptomatic human immunodeficiency virus [HIV] infection status; N18.3 Chronic kidney disease, stage 3 (moderate); E11.22 Type 2 diabetes mellitus with diabetic chronic kidney disease; N40.0 Benign prostatic hyperplasia without lower urinary tract symptoms; I65.22 Occlusion and stenosis of left carotid artery; J45.909 Unspecified asthma, uncomplicated; R47.81 Slurred speech; R47.02 Dysphasia; R29.702 NIHSS score 2; I44.1 Atrioventricular block, second degree; R13.10 Dysphagia, unspecified; Z95.1 Presence of aortocoronary bypass graft; Z79.02 Long term (current) use of antithrombotics/antiplatelets; Z79.84 Long term (current) use of oral hypoglycemic drugs; Z79.899 Other long term (current) drug therapy
CPT/HCPCS: 36415; 36416; 70450; 70551; 71045; 80048; 80053; 80061; 80306; 81003; 82550; 83690; 83735; 83880; 84484; 85007; 85014; 85018; 85025; 85027; 85049; 93005; 93306; 93880; 96360

== ENCOUNTER 2018-12-24 11:48 | Outpatient (CLI) | payer MEDICARE ==
--- NOTE | 2018-12-24 12:14 | RAD ---
EXAM: Chest 2 views: HISTORY: Other signs and symptoms respiratory system. Audible findings in chest on physical exam. COMPARISON: 09/29/2018 FINDINGS: Old granulomatous disease. Midline sternotomy. Heart size:Within normal limits. Lungs:Clear of acute process. Atherosclerotic changes of the aorta. No confluent pneumonia, overt edema, pleural effusion, pneumothorax, or other significant acute proce ss. IMPRESSION: Stable chest. Atherosclerosis of the aorta. No acute intrathoracic disease.
== END 2018-12-24 11:49 | disposition home or self-care (01) ==
LOC: BICRAD 11:48
PROVIDERS: ATTEND Internal Medicine Infectious Disease
DX: R09.89 Other specified symptoms and signs involving the circulatory and respiratory systems (principal); I70.0 Atherosclerosis of aorta
CPT/HCPCS: 71046

== ENCOUNTER 2019-03-25 08:23 | Outpatient (CLI) | payer MEDICARE ==
--- NOTE | 2019-03-25 08:49 | RAD ---
Chest 2 views HISTORY: Dyspnea. COMPARISON: 12/24/2018. FINDINGS: Cardiac silhouette and pulmonary vasculature are unremarkable. Mediastinum is midline with postoperative changes. Calcified granulomata are consistent with healed granulomatous disease. Lungs slightly hyperinflated with flattening of the hemidiaphragms and increased retrosternal clear s pace. No lobar consolidation, pneumothorax, or pleural fluid evident. Metallic brace artifact over the back. IMPRESSION: Hyperinflation and other chronic-type findings are stable. No active cardiopulmonary abno rmalities are demonstrated.
== END 2019-03-25 08:24 | disposition home or self-care (01) ==
LOC: RAD 08:23
PROVIDERS: ATTEND Internal Medicine Critical Care Medicine
DX: R06.00 Dyspnea, unspecified (principal); R91.8 Other nonspecific abnormal finding of lung field
CPT/HCPCS: 71046

== ENCOUNTER 2019-04-30 15:47 | Outpatient (CLI) | payer MEDICARE ==
--- NOTE | 2019-04-30 16:08 | RAD ---
EXAM: XR Pelvis AP STANDARD PROVIDED CLINICAL HISTORY: Left hip pain for 8 months. COMPARISON: None FINDINGS: No fracture or dislocation is seen. Joint spaces appear symmetric. No lytic or sclerotic osseous lesi on is appreciated. No other osseous abnormality. Vascular calcifications are seen in the visualized abdominal aorta and iliac arteries. IMPRESSION: No acute osseous abnormality.
--- NOTE | 2019-04-30 16:10 | RAD ---
2 views left hip: 04/30/2019 COMPARISON: 03/30/2002 HISTORY: Left hip pain for 8 months FINDINGS: Mild superior joint space narrowing. No acute fracture or evidence of dislocation. IMPRESSION: No acute findings.
== END 2019-04-30 15:48 | disposition home or self-care (01) ==
LOC: BICRAD 15:47
PROVIDERS: ATTEND Family Medicine
DX: M25.552 Pain in left hip (principal)
CPT/HCPCS: 72170

== ENCOUNTER 2019-08-18 10:18 | Outpatient (CLI) | payer MEDICARE ==
--- NOTE | 2019-08-18 13:27 | MRI ---
MR OF THE LUMBAR SPINE WITHOUT CONTRAST: 08/18/19 INDICATION: History of lumbar stenosis and neurogenic claudication with back pain ongoing for one year. COMPARISON: None. FINDINGS: Conus is seen to terminate at approximately L1. There is grade I anterolisthesis of L4 on L5. Bone ma rrow signal intensity appears within normal limits. The visualized aspects of the retroperitoneum and paravertebral soft tissues appear within normal limits. At the L5-S1 level, there is a mild broad based bulge with facet hypertrophy inducing mild bilateral neural foraminal narrowing. At the L4-5 level, there is advanced facet joint degenerative change with ligamentum flavum hypertrop hy and a broad based disc bulge inducing severe central canal narrowing with moderate bilateral neura l foraminal narrowing, left greater than right. At the L3-4 level, there is a broad based bulge with facet joint degenerative change inducing mild bi lateral neural foraminal narrowing and mild central canal narrowing. At the L2-3 level, there is a broad based bulge with facet hypertrophy inducing mild central canal na rrowing and mild bilateral neural foraminal narrowing. At the L1-2 level, there is a broad based bulge with a superimposed right paracentral protrusion tammie cing mild right neural foraminal narrowing. At [id number] level, there is no appreciable central canal or neural foraminal narrowing. IMPRESSION: 1. Severe central canal narrowing at L4-5 due to broad based pseudobulge, grade I anterolisthesi s, loss of disc space height, ligamentum flavum hypertrophy and facet joint degenerative change. Ther e is moderate bilateral neural foraminal narrowing at this level, left greater than right. 2. Mild bilateral neural foraminal narrowing and mild central canal narrowing at L2-3 and L3-4. 3. Mild bilateral neural foraminal narrowing at L5-S1. POS: RENALDO
== END 2019-08-18 10:19 | disposition home or self-care (01) ==
LOC: BICMRI 10:18
PROVIDERS: ATTEND Anesthesiology Pain Medicine
DX: M48.062 Spinal stenosis, lumbar region with neurogenic claudication (principal); M48.07 Spinal stenosis, lumbosacral region
CPT/HCPCS: 72148

== ENCOUNTER 2021-02-16 12:21 | Outpatient (CLI) | payer MEDICARE | END 2021-02-16 12:22 | disposition home or self-care (01) | LOC: BICULT 12:21 | PROVIDERS: ATTEND Internal Medicine Nephrology | DX: E11.22 Type 2 diabetes mellitus with diabetic chronic kidney disease (principal); I12.9 Hypertensive chronic kidney disease with stage 1 through stage 4 chronic kidney disease, or unspecified chronic kidney disease; N18.30 Chronic kidney disease, stage 3 unspecified; E11.51 Type 2 diabetes mellitus with diabetic peripheral angiopathy without gangrene; M32.10 Systemic lupus erythematosus, organ or system involvement unspecified; C61 Malignant neoplasm of prostate; E78.5 Hyperlipidemia, unspecified; R80.9 Proteinuria, unspecified; M10.9 Gout, unspecified; I25.10 Atherosclerotic heart disease of native coronary artery without angina pectoris; M19.90 Unspecified osteoarthritis, unspecified site; J44.9 Chronic obstructive pulmonary disease, unspecified | CPT/HCPCS: 76770; 93975 ==

== ENCOUNTER 2021-02-18 02:49 | Emergency (ER) | payer MEDICARE | END 2021-02-18 04:23 | disposition home or self-care (01) | LOC: ERS 02:49 | DX: H93.13 Tinnitus, bilateral (principal); I10 Essential (primary) hypertension; E11.9 Type 2 diabetes mellitus without complications; N28.9 Disorder of kidney and ureter, unspecified; Z79.84 Long term (current) use of oral hypoglycemic drugs | CPT/HCPCS: 99283 ==

== ENCOUNTER 2021-07-27 09:42 | Outpatient (CLI) | payer MEDICARE | END 2021-07-27 09:43 | disposition home or self-care (01) | LOC: RAD 09:42 | PROVIDERS: ATTEND Internal Medicine Critical Care Medicine | DX: R06.00 Dyspnea, unspecified (principal) | CPT/HCPCS: 71046 ==

== ENCOUNTER 2022-01-09 08:08 | Outpatient (CLI) | payer OTHER ==
[2022-01-09] MEDS ORDERED: Magnevist 469MG/ML 20 ML VIAL ONE (09:58)
== END 2022-01-09 08:09 | disposition home or self-care (01) ==
LOC: TBSIIMAG 08:08
PROVIDERS: ATTEND Urology
DX: C61 Malignant neoplasm of prostate (principal)
CPT/HCPCS: 72197; A9579

== ENCOUNTER 2022-01-11 08:46 | Outpatient (CLI) | payer OTHER | END 2022-01-11 08:47 | disposition home or self-care (01) | LOC: BICCT 08:46 | PROVIDERS: ATTEND Urology | DX: C61 Malignant neoplasm of prostate (principal); K57.30 Diverticulosis of large intestine without perforation or abscess without bleeding; M47.816 Spondylosis without myelopathy or radiculopathy, lumbar region | CPT/HCPCS: 74176 ==

== ENCOUNTER 2022-07-29 08:16 | Outpatient (CLI) | payer OTHER | END 2022-07-29 08:17 | disposition home or self-care (01) | LOC: RAD 08:16 | PROVIDERS: ATTEND Internal Medicine Critical Care Medicine | DX: R06.00 Dyspnea, unspecified (principal) | CPT/HCPCS: 71046 ==

== ENCOUNTER 2023-09-10 11:50 | Outpatient (CLI) | payer OTHER | END 2023-09-10 11:51 | disposition home or self-care (01) | LOC: RAD 11:50 | PROVIDERS: ATTEND Internal Medicine Critical Care Medicine | DX: R06.00 Dyspnea, unspecified (principal) | CPT/HCPCS: 71046 ==

== ENCOUNTER 2024-03-11 17:14 | Inpatient (IN) | payer OTHER ==
[2024-03-11 17:46] LABS: #Basophils Less than 0.03 10x3/uL (0.0-0.2); %Basophils 0.1 % (0.0-1.0); %Eosinophils 1.1 % (0.0-10.0); %Lymphocytes 7.9 % (21.0-51.0); %Monocytes 4.5 % (0.0-10.0); %Neutrophils 85.8 % (42.0-75.0); Hematocrit 34.1 % (42.0-52.0); Hemoglobin 12.2 g/dL (14.0-18.0); Mean Corpuscular HGB CONC 35.8 g/dL (32.0-36.0); Mean Corpuscular Hemoglobin 32.4 pg (27.0-31.0); Mean Corpuscular Volume 90.7 fL (78.0-98.0); Mean Platelet Volume 9.8 fL (7.4-10.4); Platelet Count 179 10x3/uL (130-400); RBC Distribution Width 12.8 % (11.5-14.5); Red Blood Cell (RBC) Count 3.76 mill/uL (4.70-6.10)
[2024-03-11 18:06] LABS: INR-International Normal Ratio 0.9; Prothrombin Time 12.4 sec (12.0-14.7)
[2024-03-11 18:07] LABS: PTT 23.3 sec (22.9-36.1); Troponin I Less than 0.010 ng/mL (< 0.028)
[2024-03-11] MEDS ORDERED: Ipratropium/Albuterol 3 ML NEB ONE ×2 (18:27→20:42)
[2024-03-11 18:41] LABS: Bacteria/HPF None Seen HPF (None Seen); CAUTI Indications for Culture Fever or rigors; RBC/HPF 0-3 HPF (0-3); Squamous Epithelial 0-3 HPF (0-3); WBC/HPF 0-3 HPF (0-3)
[2024-03-11 18:42] LABS: Bilirubin Negative (Negative); Blood, Urine Negative (Negative); Clarity Clear (Clear); Glucose, Urine (Dipstick) 150 mg/dL (Negative); Ketone, Urine Negative (Negative); Leukocyte 25 Leu/uL (Negative); Nitrite Negative (Negative); Protein, Urine (Dipstick) 20 mg/dL (Neg-Trace); Specific Gravity, Urine 1.018 (1.002-1.036); Urobilinogen Normal mg/dL (Less than 2); pH, Urine 5.5 (5.0-9.0)
[2024-03-11 18:43] LABS: Urine Culture Reflex No No
[2024-03-11 18:47] LABS: ALT (SGPT) 32 U/L (8-55); AST (SGOT) 32 U/L (5-34); Albumin 3.8 g/dL (3.4-4.8); Alkaline Phosphatase 61 U/L (40-110); Anion Gap 16 mmol/L (10-20); BUN (Urea Nitrogen) 16 mg/dL (8.4-25.7); Bilirubin, Total 0.4 mg/dL (0.2-1.2); Calc. Creatinine Clearance 0 mL/min (70-130); Calcium 9.5 mg/dL (7.8-10.44); Carbon Dioxide 22 mmol/L (23-31); Chloride 105 mmol/L (98-107); Estimated GFR 51; Globulin 4.7 g/dL (2.4-3.5); Glucose 206 mg/dL (83-110); Potassium 4.4 mmol/L (3.5-5.1); Protein, Total 8.5 g/dL (5.8-8.1); Sodium 139 mmol/L (136-145)
[2024-03-11] MEDS ORDERED: methylPREDNISolone Sod Succ/PF 125 MG/2 ML VIAL ONE (18:54)
[2024-03-11] MEDS ORDERED: cefTRIAXone (ROCEPHIN) 2 GM VIAL ONE (18:54)
[2024-03-11] MEDS ORDERED: Azithromycin 500 MG VIAL ONE (18:54)
[2024-03-11] MEDS ORDERED: Sodium Chloride 0.9% 100 ML ONE (18:54)
[2024-03-11 20:42] LABS: Lactic Acid 3.35 mmol/L (0.5-2.2)
[2024-03-11] MEDS ORDERED: Acetaminophen 325 MG TAB PO PRN (20:53)
[2024-03-11] MEDS ORDERED: Ondansetron ODT 4 MG TAB PO PRN (20:53)
[2024-03-11] MEDS ORDERED: Acetaminophen 650 MG Suppository PR PRN (20:53)
[2024-03-11] MEDS ORDERED: Ondansetron PF 4 MG/2 ML Vial IVP PRN (20:53)
[2024-03-11] MEDS ORDERED: Ipratropium/Albuterol 3 ML NEB NEB PRN (20:53)
[2024-03-11] MEDS ORDERED: Glucagon 1 MG/ML KIT IM PRN (20:56)
[2024-03-11] MEDS ORDERED: Dextrose 5% in Water 1,000 ML IV PRN (20:56)
[2024-03-11] MEDS ORDERED: Dextrose 50% Abboject 50 ML SYRINGE SLOW IVP PRN (20:56)
[2024-03-11 22:20] VITALS: BMI 25.4
[2024-03-11] MEDS: Amlodipine 5 MG TAB PO SCH (23:08)
[2024-03-11] MEDS: Losartan 25 MG TAB PO SCH (23:08)
[2024-03-11] MEDS: Insulin Lispro 100 UNIT/ML 10 ML VIAL SC PRN (23:28)
[2024-03-12] MEDS: Ipratropium/Albuterol 3 ML NEB NEB SCH (01:46)
[2024-03-12 05:04] LABS: Hematocrit 32.4 % (42.0-52.0); Hemoglobin 11.4 g/dL (14.0-18.0); Mean Corpuscular HGB CONC 35.2 g/dL (32.0-36.0); Mean Corpuscular Hemoglobin 31.3 pg (27.0-31.0); Mean Platelet Volume 10.3 fL (7.4-10.4); Platelet Count 155 10x3/uL (130-400); RBC Distribution Width 12.6 % (11.5-14.5); Red Blood Cell (RBC) Count 3.64 mill/uL (4.70-6.10)
[2024-03-12 05:35] LABS: Band 29 % (5-11); Large Platelets 1.9 % (0-5); Lymphocytes 1 % (21-51); Monocytes 2 % (0-10); Myelocyte 1 % (0-0); Neutrophil 67 % (42-75); Platelet Adequacy Comment Platelets Normal; RBC Morphology Within Normal Limits; Smudge Cells 2.9 %
[2024-03-12 05:44] LABS: Anion Gap 15 mmol/L (10-20); BUN (Urea Nitrogen) 15 mg/dL (8.4-25.7); Calc. Creatinine Clearance 52 mL/min (70-130); Calcium 8.6 mg/dL (7.8-10.44); Carbon Dioxide 19 mmol/L (23-31); Chloride 104 mmol/L (98-107); Estimated GFR 60; Glucose 252 mg/dL (83-110); Potassium 3.8 mmol/L (3.5-5.1); Sodium 134 mmol/L (136-145)
[2024-03-12] MEDS: Sodium Chloride 0.9% 1,000 ML IV SCH (08:22)
[2024-03-12] MEDS ORDERED: Nebivolol HCl 2.5 MG TAB PO SCH (09:00)
[2024-03-12] MEDS: traZODone HCl 50 MG TAB PO SCH ×2 (11:20→20:56)
[2024-03-12] MEDS: Enoxaparin 40 MG (0.4 mL) SYRINGE SC SCH (11:21)
[2024-03-12] MEDS: methylPREDNISolone Sod Succ/PF 125 MG/2 ML VIAL IVP SCH (11:22)
[2024-03-12] MEDS: Montelukast Sodium 10 mg Tablet PO SCH (11:30)
[2024-03-12] MEDS: Pantoprazole DR 40 MG TAB PO SCH (11:30)
[2024-03-12 12:23] LABS: Lactic Acid 3.08 mmol/L (0.5-2.2)
[2024-03-12 14:50] LABS: Lactic Acid 2.21 mmol/L (0.5-2.2)
[2024-03-12] MEDS: cefTRIAXone\\ROCEPHIN 2 GM in Sodium Chloride 0.9% 100 ML IVPB SCH (20:56)
[2024-03-12] MEDS: Azithromycin 500 MG in Sodium Chloride 0.9% 250 ML 250 ML IVPB SCH (20:56)
[2024-03-12] MEDS: Sodium Chloride 0.9% 0 ML ONE (20:57)
[2024-03-12] MEDS: Nebivolol HCl 5 MG TAB PO SCH (20:57)
[2024-03-12] MEDS: Atorvastatin Calcium 40 MG TAB PO SCH (20:57)
[2024-03-13 06:02] LABS: Hemoglobin A1c 6.3 % (4.0-6.0)
[2024-03-13 06:06] LABS: Anion Gap 15 mmol/L (10-20); BUN (Urea Nitrogen) 21 mg/dL (8.4-25.7); Calc. Creatinine Clearance 61 mL/min (70-130); Calcium 8.5 mg/dL (7.8-10.44); Carbon Dioxide 19 mmol/L (23-31); Chloride 108 mmol/L (98-107); Estimated GFR 73; Glucose 181 mg/dL (83-110); Potassium 3.9 mmol/L (3.5-5.1); Sodium 138 mmol/L (136-145)
[2024-03-13 06:18] LABS: #Basophils Less than 0.03 10x3/uL (0.0-0.2); #Eosinophils Less than 0.03 10x3/uL (0.0-0.7); %Basophils 0.1 % (0.0-1.0); %Lymphocytes 3.2 % (21.0-51.0); %Monocytes 3.1 % (0.0-10.0); %Neutrophils 92.3 % (42.0-75.0); Hematocrit 29.3 % (42.0-52.0); Hemoglobin 10.2 g/dL (14.0-18.0); Mean Corpuscular HGB CONC 34.8 g/dL (32.0-36.0); Mean Corpuscular Hemoglobin 31.4 pg (27.0-31.0); Mean Corpuscular Volume 90.2 fL (78.0-98.0); Mean Platelet Volume 10.8 fL (7.4-10.4); Platelet Count 166 10x3/uL (130-400); RBC Distribution Width 12.9 % (11.5-14.5); Red Blood Cell (RBC) Count 3.25 mill/uL (4.70-6.10)
[2024-03-13] MEDS: Clopidogrel Bisulfate 75 MG TAB PO SCH (09:26)
[2024-03-13] MEDS: Allopurinol 100 MG TAB PO SCH (09:26)
[2024-03-13] MEDS: Aspirin 325 MG TAB PO SCH (09:26)
[2024-03-13] MEDS: Amlodipine 5 MG TAB PO SCH (09:26)
[2024-03-13] MEDS: Losartan 25 MG TAB PO SCH (09:26)
[2024-03-13 10:44] LABS: Lactic Acid 3.06 mmol/L (0.5-2.2)
[2024-03-14 05:30] LABS: #Basophils Less than 0.03 10x3/uL (0.0-0.2); #Eosinophils Less than 0.03 10x3/uL (0.0-0.7); %Basophils 0.1 % (0.0-1.0); %Lymphocytes 3.5 % (21.0-51.0); %Monocytes 3.5 % (0.0-10.0); %Neutrophils 90.2 % (42.0-75.0); Hematocrit 29.4 % (42.0-52.0); Hemoglobin 10.3 g/dL (14.0-18.0); Mean Corpuscular Hemoglobin 31.9 pg (27.0-31.0); Mean Platelet Volume 9.9 fL (7.4-10.4); Platelet Count 208 10x3/uL (130-400); RBC Distribution Width 12.8 % (11.5-14.5); Red Blood Cell (RBC) Count 3.23 mill/uL (4.70-6.10)
[2024-03-14 06:25] LABS: Anion Gap 14 mmol/L (10-20); BUN (Urea Nitrogen) 27 mg/dL (8.4-25.7); Calc. Creatinine Clearance 56 mL/min (70-130); Calcium 8.3 mg/dL (7.8-10.44); Carbon Dioxide 21 mmol/L (23-31); Chloride 108 mmol/L (98-107); Estimated GFR 67; Glucose 174 mg/dL (83-110); Potassium 3.9 mmol/L (3.5-5.1); Sodium 139 mmol/L (136-145)
[2024-03-14] MEDS: guaiFENesin/Codeine 200 mg/20 mg 10 ml Cup PO PRN (13:54)
[2024-03-15 05:34] LABS: #Basophils Less than 0.03 10x3/uL (0.0-0.2); #Eosinophils Less than 0.03 10x3/uL (0.0-0.7); %Basophils 0.1 % (0.0-1.0); %Lymphocytes 4.7 % (21.0-51.0); %Monocytes 4.6 % (0.0-10.0); %Neutrophils 88.5 % (42.0-75.0); Hematocrit 31.6 % (42.0-52.0); Hemoglobin 11.2 g/dL (14.0-18.0); Mean Corpuscular HGB CONC 35.4 g/dL (32.0-36.0); Mean Corpuscular Hemoglobin 31.5 pg (27.0-31.0); Mean Corpuscular Volume 88.8 fL (78.0-98.0); Mean Platelet Volume 9.6 fL (7.4-10.4); Platelet Count 205 10x3/uL (130-400); RBC Distribution Width 12.7 % (11.5-14.5); Red Blood Cell (RBC) Count 3.56 mill/uL (4.70-6.10)
[2024-03-15 05:54] LABS: ALT (SGPT) 34 U/L (8-55); AST (SGOT) 19 U/L (5-34); Alkaline Phosphatase 45 U/L (40-110); Anion Gap 14 mmol/L (10-20); BUN (Urea Nitrogen) 30 mg/dL (8.4-25.7); Bilirubin, Total 0.3 mg/dL (0.2-1.2); Calc. Creatinine Clearance 55 mL/min (70-130); Calcium 8.9 mg/dL (7.8-10.44); Carbon Dioxide 21 mmol/L (23-31); Chloride 107 mmol/L (98-107); Estimated GFR 65; Globulin 3.9 g/dL (2.4-3.5); Glucose 190 mg/dL (83-110); Protein, Total 6.9 g/dL (5.8-8.1); Sodium 138 mmol/L (136-145)
[2024-03-15] MEDS: methylPREDNISolone Sod Succ 40 MG VIAL IVP SCH ×2 (09:05→14:19)
[2024-03-16 05:47] LABS: #Basophils 0.03 10x3/uL (0.0-0.2); #Eosinophils Less than 0.03 10x3/uL (0.0-0.7); %Basophils 0.3 % (0.0-1.0); %Lymphocytes 4.1 % (21.0-51.0); %Monocytes 3.9 % (0.0-10.0); %Neutrophils 88.7 % (42.0-75.0); Hemoglobin 11.2 g/dL (14.0-18.0); Mean Corpuscular HGB CONC 36.1 g/dL (32.0-36.0); Mean Corpuscular Hemoglobin 32.1 pg (27.0-31.0); Mean Corpuscular Volume 88.8 fL (78.0-98.0); Mean Platelet Volume 10.1 fL (7.4-10.4); Platelet Count 230 10x3/uL (130-400); RBC Distribution Width 12.5 % (11.5-14.5); Red Blood Cell (RBC) Count 3.49 mill/uL (4.70-6.10)
[2024-03-16 06:13] LABS: ALT (SGPT) 32 U/L (8-55); AST (SGOT) 13 U/L (5-34); Albumin 2.9 g/dL (3.4-4.8); Alkaline Phosphatase 48 U/L (40-110); Anion Gap 14 mmol/L (10-20); BUN (Urea Nitrogen) 31 mg/dL (8.4-25.7); Bilirubin, Total 0.2 mg/dL (0.2-1.2); Calc. Creatinine Clearance 48 mL/min (70-130); Calcium 8.5 mg/dL (7.8-10.44); Carbon Dioxide 20 mmol/L (23-31); Chloride 105 mmol/L (98-107); Estimated GFR 55; Globulin 3.9 g/dL (2.4-3.5); Glucose 274 mg/dL (83-110); Potassium 4.2 mmol/L (3.5-5.1); Protein, Total 6.8 g/dL (5.8-8.1); Sodium 135 mmol/L (136-145)
[2024-03-16] MEDS: Fish Oil 1,000 MG CAP PO SCH (08:18)
[2024-03-16] MEDS: Cholecalciferol 1,000 UNITS (25 MCG) TAB PO SCH (08:19)
[2024-03-16] MEDS: Tamsulosin HCl 0.4 MG CAP PO SCH (08:19)
[2024-03-16] MEDS: Polyethylene Glycol OPTH DROP 15 ML BOT EA EYE SCH (08:19)
[2024-03-16] MEDS: [UNRECOGNIZED DRUG - OTHER] PO SCH (11:38)
[2024-03-16] MEDS: methylPREDNISolone Sod Succ 40 MG VIAL IVP SCH (20:35)
[2024-03-17 05:57] LABS: #Basophils Less than 0.03 10x3/uL (0.0-0.2); #Eosinophils Less than 0.03 10x3/uL (0.0-0.7); %Basophils 0.2 % (0.0-1.0); %Lymphocytes 3.8 % (21.0-51.0); %Monocytes 4.2 % (0.0-10.0); %Neutrophils 87.7 % (42.0-75.0); Hemoglobin 10.9 g/dL (14.0-18.0); Mean Corpuscular HGB CONC 35.2 g/dL (32.0-36.0); Mean Corpuscular Volume 90.9 fL (78.0-98.0); Mean Platelet Volume 9.8 fL (7.4-10.4); Platelet Count 246 10x3/uL (130-400); RBC Distribution Width 12.7 % (11.5-14.5); Red Blood Cell (RBC) Count 3.41 mill/uL (4.70-6.10)
[2024-03-17 06:14] LABS: ALT (SGPT) 27 U/L (8-55); AST (SGOT) 11 U/L (5-34); Albumin 2.8 g/dL (3.4-4.8); Alkaline Phosphatase 50 U/L (40-110); Anion Gap 13 mmol/L (10-20); BUN (Urea Nitrogen) 33 mg/dL (8.4-25.7); Bilirubin, Total 0.2 mg/dL (0.2-1.2); Calc. Creatinine Clearance 56 mL/min (70-130); Calcium 8.4 mg/dL (7.8-10.44); Carbon Dioxide 19 mmol/L (23-31); Chloride 106 mmol/L (98-107); Estimated GFR 66; Globulin 3.5 g/dL (2.4-3.5); Glucose 348 mg/dL (83-110); Potassium 4.3 mmol/L (3.5-5.1); Protein, Total 6.3 g/dL (5.8-8.1); Sodium 134 mmol/L (136-145)
[2024-03-17] MEDS: glipiZIDE 5 MG TAB PO SCH (16:27)
[2024-03-17] MEDS: Cefdinir 300 MG CAP PO SCH (21:10)
[2024-03-18 07:33] LABS: Hematocrit 31.4 % (42.0-52.0); Hemoglobin 11.1 g/dL (14.0-18.0); Mean Corpuscular HGB CONC 35.4 g/dL (32.0-36.0); Mean Corpuscular Hemoglobin 31.8 pg (27.0-31.0); Mean Platelet Volume 9.5 fL (7.4-10.4); Platelet Count 243 10x3/uL (130-400); RBC Distribution Width 13.1 % (11.5-14.5); Red Blood Cell (RBC) Count 3.49 mill/uL (4.70-6.10)
[2024-03-18 07:53] LABS: Anion Gap 11 mmol/L (10-20); BUN (Urea Nitrogen) 33 mg/dL (8.4-25.7); Calc. Creatinine Clearance 68 mL/min (70-130); Calcium 8.5 mg/dL (7.8-10.44); Carbon Dioxide 22 mmol/L (23-31); Chloride 107 mmol/L (98-107); Estimated GFR 84; Glucose 79 mg/dL (83-110); Potassium 3.9 mmol/L (3.5-5.1); Sodium 136 mmol/L (136-145)
[2024-03-18 08:11] LABS: Band 1 % (5-11); Lymphocytes 8 % (21-51); Metamyelocyte 2 % (0-0); Monocytes 4 % (0-10); Neutrophil 82 % (42-75); Nucleated RBC (Manual Ct) 2 % (0); Platelet Adequacy Comment Platelets Normal; Polychromasia SLIGHT = 2-3 cells HPF (0-2); Reactive Lymphocytes 3 % (0-10)
[2024-03-18] MEDS: predniSONE 5 MG TAB PO SCH (08:26)
[2024-03-19 07:57] VITALS: BP 122/66; TEMP 97.9
== END 2024-03-19 11:02 | disposition home or self-care (01) | DRG 871 ==
LOC: ERS 17:14 → SUATTDRO 17:14 → 2NO 20:04 → T4-A 03-13 14:47
PROVIDERS: ADMIT Family Medicine; ATTEND Internal Medicine
DX: A41.9 Sepsis, unspecified organism (principal); J18.9 Pneumonia, unspecified organism; J96.01 Acute respiratory failure with hypoxia; J45.901 Unspecified asthma with (acute) exacerbation; N17.9 Acute kidney failure, unspecified; E87.20 Acidosis, unspecified; G45.9 Transient cerebral ischemic attack, unspecified; D84.9 Immunodeficiency, unspecified; I69.854 Hemiplegia and hemiparesis following other cerebrovascular disease affecting left non-dominant side; E11.9 Type 2 diabetes mellitus without complications; N40.0 Benign prostatic hyperplasia without lower urinary tract symptoms; I10 Essential (primary) hypertension; Z95.1 Presence of aortocoronary bypass graft; Z98.890 Other specified postprocedural states; I25.10 Atherosclerotic heart disease of native coronary artery without angina pectoris; Z79.4 Long term (current) use of insulin; M1A.9XX0 Chronic gout, unspecified, without tophus (tophi); Z79.899 Other long term (current) drug therapy; Z21 Asymptomatic human immunodeficiency virus [HIV] infection status
CPT/HCPCS: 36415; 36416; 71045; 80048; 80053; 81001; 83036; 83605; 84145; 85025; 85610; 85730; 87040; 87428; 93005; 94640; 94760; 96365; 96367; J0456; J0696; J1650; J1815; J2919; J7030; J7050; J7512; J7620